=== PATIENT | male | born 2000 | race African-American/Black ===

== ENCOUNTER 2020-05-17 21:26 | Inpatient (IN) | payer OTHER, MEDICAID, SELFPAY ==
--- NOTE | 2020-05-17 | XR_ITS ---
EXAMINATION: XR CHEST CLINICAL INFORMATION: Shortness of breath COMPARISON: 03/15/2019 TECHNIQUE: Frontal view of the chest was obtained. FINDINGS: No significant abnormality is noted involving the heart, lungs, mediastinum, bony thorax or soft tissues. XR/XR chest 1V IMPRESSION: Unremarkable examination.
[2020-05-17 21:39] VITALS: BP 127/87; PULSE 135; RESP 24; TEMP 37.8; O2SAT 90; BMI 29.0
--- NOTE | 2020-05-17 21:54 | ED.URI ---
HPI - URI/Sore Throat General Chief Complaint: Upper Respiratory Symptoms Stated Complaint: ASTHMA Time Seen by Provider: 05/17/20 21:48 Source: patient Mode of arrival: ambulatory Limitations: no limitations History of Present Illness HPI Narrative: Patient comes emergency room complaining of an asthma exacerbation. Patient states that he has been having worsening shortness of breath for about a week. Patient states usually around winter he gets more asthma exacerbations. He has 2 inhalers at home, states they are not working. Patient denies any cough, no fever or chills. MD elicited complaint: other (Asthma exacerbation) Related Data Allergies Allergy/AdvReac Type Severity Reaction Status Date / Time No Known Allergies Allergy Verified 05/17/20 21:38 Review of Systems Review of Systems: Constitutional : No Weight loss, No Fever, No Chills, No Night Sweats, No Fatigue, No Malaise ENT/Mouth : No Hearing loss, No Ear Pain, No Nasal Congestion, No Sinus Pain, No Hoarseness, No sore throat, No Rhinorrhea, No Swallowing Difficulty Eyes: No Eye Pain, No Swelling, No Redness, No Foreign Body, No Discharge, No Vision Changes Cardiovascular : No Chest Pain, No SOB, No Dyspnea on Exertion, No Orthopnea, No Edema, No Palpitations Respiratory : No Cough, No Sputum, complaining of Wheezing, No Smoke Exposure, [id number] Dyspnea Gastrointestinal : No Nausea, No Vomiting, No Diarrhea, No Constipation, No abdominal Pain, No Hematochezia, No Melena Genitourinary : no irregular bleeding, No Dysuria, No Urinary Frequency, No Hematuria, No Urinary Incontinence, No Urgency, No Flank Pain, No Urinary Flow Changes, No Hesitancy Musculoskeletal : No joint pain, No Myalgias, No Joint Swelling Skin : No Skin Lesions, No rash Neuro : No Weakness, No Numbness, No Paresthesias, No Loss of Consciousness, No Dizziness, No Headache Psych : No Anxiety/Panic, No Depression, No SI/HI/AH/VH, No Social Issues, Heme/Lymph: No Bruising, No Bleeding,No Lymphadenopathy Endocrine : No Polyuria, No Polydipsia, No Temperature Intolerance PMFSH Past Medical History Medical History (Updated 05/18/20 @ 02:15 by Mag Tran MD) Asthma Social History Social History Advance Directives: No Advance Directives Information Provided: Yes Physical Exam Vital Signs: Vital Signs: Last Vital Signs Temp 100.1 F 05/17/20 22:00 Pulse 124 H 05/18/20 01:11 Resp 22 H 05/17/20 22:00 BP 132/88 05/17/20 22:00 Pulse Ox 93 05/17/20 22:00 Body Mass Index 29.0 Appearance: Alert. Oriented X3. No acute distress. Eyes: Pupils equal, round and reactive to light. ENT: Pharynx normal. Neck: Normal inspection. Neck supple. No lymph nodes noted. No crepitus CVS: Normal heart rate and rhythm. Pulses normal. Normal S1 and S2 Respiratory: No respiratory distress, bilateral expiratory wheezing , patient's oxygen saturation drops to 88% on room air Abdomen: Soft and nontender. No rigidity. No distention. good BS x4 Skin: Skin warm and dry. Normal skin color. Normal skin turgor. Extremities: No lower extremity edema. No lower extremity edema. No Lacerations. No Rash Neuro: Oriented X 3. No motor deficit. No sensory deficit. Moving all extermities. No slurred speech. Course Course Course Narrative: After 1 nebulization treatment, patient states that he feels much better, oxygen saturation 98%, however he is still wheezing, patient will receive a 2nd treatment now. After patient's 2nd treatment, patient continues to wheeze, oxygen saturation drops to 88% on room air, improved to 92 on 3 L. Patient being admitted for asthma exacerbation. MDM - URI/Sore Throat Imaging Data Chest x-ray: Radiologist's impression: TECHNIQUE: Frontal view of the chest was obtained. FINDINGS: No significant abnormality is noted involving the heart, lungs, mediastinum, bony thorax or soft tissues. XR/XR chest 1V IMPRESSION: Unremarkable examination. Discharge Plan Discharge Clinical Impression: Asthma Patient Disposition: Admitted As Inpatient
[2020-05-17 22:00] VITALS: BP 132/88; PULSE 112; RESP 22; TEMP 37.8; O2SAT 93
--- NOTE | 2020-05-17 22:00 | PC.NURSE ---
PT TO ED AMBULATORY WITH C/O DIFFICULTY BREATHING, PT CHG INTO GOWN AND MD AT BEDSIDE WITH PT. PT ALERT, SKIN W/D. PT AWAITING FOR RESPIRATORY FOR BREATHING TX.
[2020-05-17] MEDS: Albuterol Sulfate (0.083%) 2.5 MG/3 ML VIAL.NEB 10 MG INHALE (22:09)
[2020-05-17 22:12] VITALS: PULSE 128; O2SAT 94
[2020-05-17] MEDS: Magnesium Sulfate/H2O 2 GM/50 ML PIGGYBACK IV (22:40)
[2020-05-17] MEDS: methylPREDNISolone Sod Succ/PF 125 MG/2 ML VIAL IVPUSH (22:40)
--- NOTE | 2020-05-17 22:40 | PC.NURSE ---
PT MEDICATED PER EMAR. WILL CONTINUE TO MONITOR PT.
[2020-05-18] VITALS (12 sets, daily range): BP systolic 114–148; BP diastolic 61–88; PULSE 82–135; RESP 12–24; TEMP 36.4–37.2; O2SAT 2–97
[2020-05-18] MEDS: Albuterol Sulfate (0.083%) 2.5 MG/3 ML VIAL.NEB 5 MG INHALE (01:10)
--- NOTE | 2020-05-18 01:10 | PC.NURSE ---
RESPIRATORY IN ROOM FOR RESPIRATORY TX.
--- NOTE | 2020-05-18 02:00 | PC.NURSE ---
PT STATES IM FEELING A LITTLE BETTER . PT MEDICATED PER EMAR FOR MAGNESIUM ON A PUMP. PT ON MONITOR. PT DENIES ANY COMPLAINTS AT THIS TIME. WILL CONTINUE TO MONITOR PT.
[2020-05-18 02:17] LABS: Influenza A PCR NEGATIVE (Negative); Influenza B PCR NEGATIVE (Negative); Resp Syncy Virus RNA Qual PCR NEGATIVE (Negative); SARS COV2 PCR INHOUSE NEGATIVE (Negative)
--- NOTE | 2020-05-18 02:30 | PC.NURSE ---
PT TO ED, CHG INTO GOWN AND AWAITING MD'S EVAL.
--- NOTE | 2020-05-18 04:43 | PC.NURSE ---
PT RESTING IN STRETCHER W/O COMPLAINTS. PT AWAITING BED ASSIGNMENT. PT SLEEPING, WAKES TO VOICE. WILL CONTINUE TO MONITOR PT.
[2020-05-18] MEDS: Enoxaparin Sodium 40 MG/0.4 ML SYRINGE SUBCUT (05:01)
[2020-05-18 05:25] LABS: Basophils Absolute Auto 0.1 X10*3/uL (0.0-0.2); Basophils Percent Auto 0.4 % (0-2); Eosinophils Percent Auto 0.1 % (0-4); Hematocrit 47.4 % (42-52); Hemoglobin 15.8 g/dl (14.0-18.0); Imm Gran Abs Auto 0.06 X10*3/uL (0.00-0.03); Imm Gran Pct Auto 0.4 % (0.0-0.4); Lymphocytes Absolute Auto 0.9 X10*3/uL (1.2-4.9); Lymphocytes Percent Auto 6.4 % (20-40); Mean Corpuscular HGB Conc 33.3 g/dl (31.0-36.0); Mean Corpuscular Hemoglobin 30.3 pg (27.0-33.0); Mean Platelet Volume 10.8 fL (9.4-12.4); Monocytes Absolute Auto 0.2 X10*3/uL (0.1-1.2); Monocytes Percent Auto 1.2 % (2-11); Neutrophils Absolute Auto 12.7 X10*3/uL (2.0-8.3); Neutrophils Percent Auto 91.5 % (45-73); Platelet Count 242 X10*3/uL (160-400); Red Blood Count 5.21 X10*6/uL (4.60-5.80); SCAN SMEAR FLAG 1; White Blood Count 13.8 X10*3/uL (4.8-10.8)
[2020-05-18 05:26] LABS: MANUAL DIFF FLAG SCAN
[2020-05-18 05:39] LABS: D Dimer < 200 NG/ML
[2020-05-18 05:51] LABS: Anion Gap 16 (12-20); Blood Urea Nitrogen 13 mg/dL (9-16); Calcium 9.3 mg/dL (8.4-10.2); Carbon Dioxide 25 mmol/L (22-29); Chloride 104 mmol/L (96-108); Creatinine Clr Calc Pharmacy 143.7; Estimated Glomerular Filt Rate > 60; Glucose Random 142 mg/dL (60-115); Potassium 3.8 mmol/l (3.3-5.1); Sodium 141 mmol/L (135-145)
[2020-05-18 05:53] LABS: SLIDE REVIEW VERIFIED
--- NOTE | 2020-05-18 06:03 | P.HPHOSP_ITS ---
History of Present Illness Date of Service: 05/18/20 Chief Complaint: Shortness of breath and wheezing This is a 19-year-old male with past medical history of asthma who presents to the hospital complaining of wheezing x3 days, shortness of breath and difficulty catching his breath. Patient reports cough, runny nose that started around the same time, no sputum production. No fever or chills. Has not had any sick contacts, and no recent travel. has been having nausea and had 1 episode of vomiting few days ago, has no abdominal pain diarrhea constipation. No urinary symptoms, no headache or change in vision, no chest pain, no palpitations, no lower extremity edema. Despite receiving multiple rounds of breathing treatments, Solu-Medrol patient remains wheezing and short of breath therefore is being admitted for further management of asthma exacerbation On arrival to the ED vitals are significant for temp of a 100.1?, pulse rate of 135, respiratory rate of 24, blood pressure 127/87, satting 90% on room air Labs are significant for WBC count of 13.8, otherwise unremarkable Chest x-ray shows no evidence of pneumonia, D-dimer negative Past medical history: Asthma Past surgical history: Denies Family history: Denies Social history: Comes from home, denies tobacco alcohol or illicit drug Review of Systems Review of Systems: Yes all other systems are reviewed and are negative [facility] Medical History Asthma Social History Advance Directives: No Advance Directives Information Provided: Yes Meds Allergies Allergy/AdvReac Type Severity Reaction Status Date / Time No Known Allergies Allergy Verified 05/17/20 21:38 Home Medications Medication Instructions Recorded Confirmed Type albuterol sulfate [ProAir HFA] 2 puff PO Q4H PRN 05/18/20 05/18/20 History fluticasone propionate [Flovent 2 puff PO BID 05/18/20 05/18/20 History HFA] Physical Exam Vital Signs and Narrative: Vital Signs: Last Vital Signs Temp 100.1 F 05/17/20 22:00 Pulse 100 05/18/20 03:30 Resp 12 05/18/20 03:30 BP 137/67 05/18/20 03:30 Pulse Ox 96 05/18/20 03:30 Body Mass Index 29.0 Const: General: cooperative and no acute distress Orientation/consciousness: patient oriented x3 HENMT: Other: Rhinorrhea Eyes: General: appearance normal, both eyes and all related structures Resp: Other: Expiratory wheezing Effort & Inspection: normal respiratory effort and able to speak in complete sentences Cardio: Rate: regular rate Rhythm: regular rhythm GI: Palpation (GI): Soft to palpation Auscultation: normal bowel sounds Skin: General skin exam: no rashes or lesions noted Neuro: General: patient oriented x3 Cognition (Neuro): normal cognition Extrem: General: Yes normal to inspection and Yes no pedal edema Results Labs CBC and Chem 7: 05/18/20 05:20 05/18/20 05:20 Labs: Laboratory Results - last 24 hr 05/18/20 05/18/20 05/18/20 00:39 05:20 05:20 MCV 91.0 MCH 30.3 MCHC 33.3 RDW 13.0 Plt Count 242 MPV 10.8 Immature Gran % (Auto) 0.4 Neut % (Auto) 91.5 H Lymph % (Auto) 6.4 L Ransom % (Auto) 1.2 L Eos % (Auto) 0.1 Baso % (Auto) 0.4 Lymph # (Auto) 0.9 L Ransom # (Auto) 0.2 Eos # (Auto) 0.0 Baso # (Auto) 0.1 Abs Immat Gran (auto) 0.06 H Absolute Neuts (auto) 12.7 H Absolute Nucleated RBC 0.000 Nucleated RBC % (auto) 0.0 Smear Tech's Comments VERIFIED D-Dimer Anion Gap 16 Estim Creat Clear Calc 143.7 Estimated GFR > 60 Random Glucose 142 H Calcium 9.3 Coronavirus (PCR) NEGATIVE Influenza Type A (PCR) NEGATIVE Influenza Type B (PCR) NEGATIVE RSV RNA Qual (PCR) NEGATIVE 05/18/20 05:20 MCV MCH MCHC RDW Plt Count MPV Immature Gran % (Auto) Neut % (Auto) Lymph % (Auto) Ransom % (Auto) Eos % (Auto) Baso % (Auto) Lymph # (Auto) Ransom # (Auto) Eos # (Auto) Baso # (Auto) Abs Immat Gran (auto) Absolute Neuts (auto) Absolute Nucleated RBC Nucleated RBC % (auto) Smear Tech's Comments D-Dimer < 200 Anion Gap Estim Creat Clear Calc Estimated GFR Random Glucose Calcium Coronavirus (PCR) Influenza Type A (PCR) Influenza Type B (PCR) RSV RNA Qual (PCR) Imaging Radiologist's Impressions: Impressions Chest X-Ray 05/17/20 00:00 IMPRESSION: Unremarkable examination. Assessment and Plan (1) Asthma exacerbation: Qualifiers: Asthma severity: mild Asthma persistence: intermittent Qualified Code(s): J45.21 - Mild intermittent asthma with (acute) exacerbation Status: Acute (2) Leukocytosis: Status: Acute (3) Fever: Status: Acute (4) Tachypnea: Status: Acute (5) Tachycardia: Status: Acute 19-year-old male who presents to the hospital with asthma exacerbation # asthma exacerbation - possibly secondary to viral infection, COVID-19 negative, chest x-ray negative for any evidence of pneumonia Plan: - Solu-Medrol, DuoNeb q.i.d., p.r.n., - given his leukocytosis, tachypnea and tachycardia will start him on antibioti cs - will obtain complete respiratory viral panel # leukocytosis - has mild leukocytosis possibly secondary to viral infection - will start him on abx - will follow CBC # tachypnea and tachycardia - secondary to hypoxia and asthma exacerbation - cannot rule out bacterial infection although chest x-ray is negative for any pneumonia, - COVID-19 negative - D-dimer negative - will start him on levofloxacin and monitor his respiratory status DVT prophylaxis: Lovenox
[2020-05-18] MEDS: levoFLOXacin/D5W 750 MG/150 ML PIGGYBACK 100 MG IV (07:14)
[2020-05-18] MEDS: Albuterol/Iprat 2.5/0.5MG 3 ML AMPUL.NEB INHALE ×3 (07:52→15:32)
--- NOTE | 2020-05-18 11:44 | MHC.CM.PN ---
Met with patient in regards to discharge planning. Patient is Thai speaking but does speak and understand [place]ian. 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 Patient lives alone, ambulates independently and had no services prior to coming to the hospital. Additional services at discharge are not indicated at this time because patient is not homebound. PCP verified as Dr Oropeza at [facility]. Patient believes his mother has a copy of his HCP and will attempt to obtain a copy. Patient will transport himself when medically stable. Continue to monitor for d/c needs.
--- NOTE | 2020-05-18 12:20 | PM.EVENT ---
Event Note Date of Service: 05/18/20 Event Note: S Seen and examined in the ED reports feeling much better and hoping to go home O Vitals - last documented Gen - NAD CVS - S1S2 Lungs - improving air entry Abd - soft nt/nd A/P 19 yo M admitted for asthma exacerbation COVID 19 PCR negative, resp. pathogen panel pending IV steriods, updrafts wean o2 remainder per H&P from this AM admission
[2020-05-18 13:25] LABS: Adenovirus PCR Not Detected (Not Detect.); Bordetella parapertussis PCR Not Detected (Not Detect.); Bordetella pertussis PCR Not Detected (Not Detect.); Chlamydia pneumoniae PCR Not Detected (Not Detect.); Coronavirus 229E PCR Not Detected (Not Detect.); Coronavirus HKU1 PCR Not Detected (Not Detect.); Coronavirus NL63 PCR Not Detected (Not Detect.); Coronavirus OC43 PCR Not Detected (Not Detect.); Human metapneumovirus PCR Not Detected (Not Detect.); Influenza A PCR Not Detected (Not Detect.); Influenza B PCR Not Detected (Not Detect.); Mycoplasma pneumoniae PCR Not Detected (Not Detect.); Parainfluenza 1 PCR Not Detected (Not Detect.); Parainfluenza 2 PCR Not Detected (Not Detect.); Parainfluenza 3 PCR Not Detected (Not Detect.); Parainfluenza 4 PCR Not Detected (Not Detect.); RSV PCR Not Detected (Not Detect.); SARS-CoV-2 PCR Not Detected (Not Detect.)
[2020-05-18 14:28] LABS: Rhino/Enterovirus PCR Detected (Not Detect.)
[2020-05-18] MEDS: 0.9 % Sodium Chloride Flush 3 ML SYRINGE IVFLUSH (16:46)
[2020-05-19] VITALS (10 sets, daily range): BP systolic 125–147; BP diastolic 66–93; PULSE 82–115; RESP 18–19; TEMP 36.3–37.2; O2SAT 86–95
[2020-05-19] MEDS: Enoxaparin Sodium 40 MG/0.4 ML SYRINGE SUBCUT (03:33)
[2020-05-19] MEDS: 0.9 % Sodium Chloride Flush 3 ML SYRINGE IVFLUSH ×3 (03:33→14:45)
[2020-05-19 04:43] LABS: Basophils Percent Auto 0.1 % (0-2); Hematocrit 45.3 % (42-52); Hemoglobin 15.1 g/dl (14.0-18.0); Imm Gran Abs Auto 0.12 X10*3/uL (0.00-0.03); Imm Gran Pct Auto 0.6 % (0.0-0.4); Lymphocytes Percent Auto 9.5 % (20-40); MANUAL DIFF FLAG SCAN; Mean Corpuscular HGB Conc 33.3 g/dl (31.0-36.0); Mean Corpuscular Hemoglobin 30.3 pg (27.0-33.0); Mean Corpuscular Volume 90.8 fL (80-98); Mean Platelet Volume 11.3 fL (9.4-12.4); Monocytes Percent Auto 9.5 % (2-11); Neutrophils Absolute Auto 17.1 X10*3/uL (2.0-8.3); Neutrophils Percent Auto 80.3 % (45-73); Platelet Count 284 X10*3/uL (160-400); Red Blood Count 4.99 X10*6/uL (4.60-5.80); Red Cell Distribution Width 13.2 % (11.0-16.0); SCAN SMEAR FLAG 1; White Blood Count 21.3 X10*3/uL (4.8-10.8)
[2020-05-19 05:12] LABS: SLIDE REVIEW VERIFIED
[2020-05-19 05:14] LABS: Anion Gap 17 (12-20); Blood Urea Nitrogen 18 mg/dL (9-16); Calcium 9.2 mg/dL (8.4-10.2); Carbon Dioxide 25 mmol/L (22-29); Chloride 102 mmol/L (96-108); Creatinine Clr Calc Pharmacy 157.8; Estimated Glomerular Filt Rate > 60; Glucose Random 113 mg/dL (60-115); Potassium 4.7 mmol/l (3.3-5.1); Sodium 139 mmol/L (135-145)
[2020-05-19] MEDS: Albuterol/Iprat 2.5/0.5MG 3 ML AMPUL.NEB INHALE ×3 (07:41→15:39)
--- NOTE | 2020-05-19 08:46 | HO.PM.IMPN ---
Subjective Subjective Date of Service: 05/19/20 Interval History: seen and examined feeling better, breathing eaiser still coughing, but denies wheezing ROS General - no fevers or chills Cardiovascular - no chest pain Respiratory - shortness of breath imprved, denies wheezing Abdominal- no abdominal pain, nausea, vomiting, diarrhea Physical Exam Vital Signs: Vital Signs: Last Vital Signs Temp 97.8 F 05/19/20 07:05 Pulse 87 05/19/20 07:47 Resp 18 05/19/20 07:05 BP 131/78 05/19/20 07:05 Pulse Ox 93 05/19/20 07:05 Body Mass Index 29.0 Const: General: cooperative and no acute distress Orientation/consciousness: patient oriented x3 HENMT: Other: Rhinorrhea Eyes: General: appearance normal, both eyes and all related structures Resp: Other: diminished breath sounds, mild exp. scattered wheezing Effort & Inspection: normal respiratory effort and able to speak in complete sentences Cardio: Rate: regular rate Rhythm: regular rhythm GI: Palpation (GI): Soft to palpation Auscultation: normal bowel sounds Skin: General skin exam: no rashes or lesions noted Neuro: General: patient oriented x3 Cognition (Neuro): normal cognition Extrem: General: Yes normal to inspection and Yes no pedal edema Objective Data Current Medications Generic Name Dose Route Start Last Admin Trade Name Patricq PRN Reason Stop Dose Admin Acetaminophen 650 mg 05/18/20 03:30 Acetaminophen 325 Mg Tablet PO Q6H PRN Pain, Mild (Pain Scale 1-3) Albuterol/Ipratropium 3 ml 05/18/20 08:00 05/19/20 07:41 Albuterol/Iprat 2.5/0.5mg 3 Ml Ampul.Neb INHALE 3 ml RQ4H WHILE AWAKE GLORIA Administration Albuterol/Ipratropium 3 ml 05/18/20 03:30 Albuterol/Iprat 2.5/0.5mg 3 Ml Ampul.Neb INHALE RQ4H PRN Shortness of Breath/Wheezing Docusate Sodium 100 mg 05/18/20 03:30 Docusate Sodium 100 Mg Capsule PO DAILY PRN Constipation Enoxaparin Sodium 40 mg 05/18/20 03:30 05/19/20 03:33 Enoxaparin Sodium 40 Mg/0.4 Ml Syringe SUBCUT 40 mg Q24H GLORIA Administration Methylprednisolone Sodium Succinate 40 mg 05/18/20 03:30 05/19/20 03:33 Methylprednisolone Sod Succ/Pf 40 Mg/Ml Vial IVPUSH 40 mg Q12H GLORIA Administration Ondansetron HCl 4 mg 05/18/20 03:30 Ondansetron Hcl 4 Mg/2 Ml Vial IVPUSH Q8H PRN Nausea and Vomiting Sodium Chloride 3 ml 05/18/20 08:00 05/19/20 07:13 0.9 % Sodium Chloride Flush 3 Ml Syringe IVFLUSH 3 ml QSHIFT GLORIA Administration Labs CBC & Chem 7: 05/19/20 04:02 05/19/20 04:02 Assessment and Plan (1) Asthma exacerbation: Status: Acute (2) Respiratory failure with hypoxia: Status: Acute Assessment and Plan: 19-year-old male who presents to the hospital with asthma exacerbation 1. Asthma exacerbation secondary to Echo/Rhinovirus causing acute hypoxic respiratory failure desatted to 86 on RA this AM continue with supplemental o2 to keep sat 90-92 continue IV solu-medrol and scheduled updrafts RPP+ for echo/rhinovirus 2. leukocytosis increased due to steriods discontinue levaquin -- no evidence of bacterial infection Full Code DVT pptx, lovenox
--- NOTE | 2020-05-19 10:39 | MHC.CM.PN ---
PER INTERDISCIPLINARY ROUNDS PT NOT READY FOR D/C TODAY DUE TO AFTER OXYGEN DROPPED TO 86% AFTER O2 REMOVED. ANTICIPATED D/C 05/20/20 HOME SELF-CARE, PT'S CAR IN PARKING LOT AND WILL TRANSPORT HIMSELF.
[2020-05-20] VITALS (13 sets, daily range): BP systolic 107–144; BP diastolic 59–75; PULSE 70–95; RESP 16–20; TEMP 36.3–36.7; O2SAT 86–100
--- NOTE | 2020-05-20 | XR_ITS ---
EXAMINATION: XR CHEST CLINICAL INFORMATION: Asthma not improving. COMPARISON: May 17, 2020 TECHNIQUE: 2 views of the chest were obtained. FINDINGS: No significant abnormality is noted involving the heart, lungs, mediastinum, bony thorax or soft tissues. XR/XR chest 2V IMPRESSION: No acute disease.
[2020-05-20] MEDS: 0.9 % Sodium Chloride Flush 3 ML SYRINGE IVFLUSH ×3 (03:24→15:02)
[2020-05-20] MEDS: Albuterol/Iprat 2.5/0.5MG 3 ML AMPUL.NEB INHALE ×4 (07:16→21:19)
--- NOTE | 2020-05-20 08:18 | HO.PM.IMPN ---
Subjective Subjective Date of Service: 05/20/20 Interval History: seen and examined continue to feel better despite persistant hypoxia on RA reports coughing, non-productive and minimal denies any pleuritic type chest pain denies smoking -- tobacco or otherwise ROS General - no fevers or chills Cardiovascular - no chest pain Respiratory - shortness of breath improved, denies wheezing Abdominal- no abdominal pain, nausea, vomiting, diarrhea Physical Exam Vital Signs: Vital Signs: Last Vital Signs Temp 97.6 F 05/20/20 07:12 Pulse 87 05/20/20 07:17 Resp 19 05/20/20 07:12 BP 141/69 H 05/20/20 07:12 Pulse Ox 86 L 05/20/20 08:16 Body Mass Index 29.0 Const: General: cooperative and no acute distress Orientation/consciousness: patient oriented x3 HENMT: Other: Rhinorrhea Eyes: General: appearance normal, both eyes and all related structures Resp: Other: diminished breath sounds, mild exp. scattered wheezing desaturating to mid 80s on the RA Effort & Inspection: normal respiratory effort and able to speak in complete sentences Cardio: Rate: regular rate Rhythm: regular rhythm GI: Palpation (GI): Soft to palpation Auscultation: normal bowel sounds Skin: General skin exam: no rashes or lesions noted Neuro: General: patient oriented x3 Cognition (Neuro): normal cognition Extrem: General: Yes normal to inspection and Yes no pedal edema Objective Data Current Medications Generic Name Dose Route Start Last Admin Trade Name Freq PRN Reason Stop Dose Admin Acetaminophen 650 mg 05/18/20 03:30 Acetaminophen 325 Mg Tablet PO Q6H PRN Pain, Mild (Pain Scale 1-3) Albuterol/Ipratropium 3 ml 05/18/20 08:00 05/20/20 07:16 Albuterol/Iprat 2.5/0.5mg 3 Ml Ampul.Neb INHALE 3 ml RQ4H WHILE AWAKE GLORIA Administration Albuterol/Ipratropium 3 ml 05/18/20 03:30 Albuterol/Iprat 2.5/0.5mg 3 Ml Ampul.Neb INHALE RQ4H PRN Shortness of Breath/Wheezing Docusate Sodium 100 mg 05/18/20 03:30 Docusate Sodium 100 Mg Capsule PO DAILY PRN Constipation Enoxaparin Sodium 40 mg 05/18/20 03:30 05/20/20 03:26 Enoxaparin Sodium 40 Mg/0.4 Ml Syringe SUBCUT Not Given Q24H GLORIA Methylprednisolone Sodium Succinate 40 mg 05/18/20 03:30 05/20/20 03:24 Methylprednisolone Sod Succ/Pf 40 Mg/Ml Vial IVPUSH 40 mg Q12H GLORIA Administration Ondansetron HCl 4 mg 05/18/20 03:30 Ondansetron Hcl 4 Mg/2 Ml Vial IVPUSH Q8H PRN Nausea and Vomiting Sodium Chloride 3 ml 05/18/20 08:00 05/20/20 06:55 0.9 % Sodium Chloride Flush 3 Ml Syringe IVFLUSH 3 ml QSHIFT GLORIA Administration Labs CBC & Chem 7: 05/19/20 04:02 05/19/20 04:02 Assessment and Plan (1) Asthma exacerbation: Status: Acute (2) Respiratory failure with hypoxia: Status: Acute Assessment and Plan: 19-year-old male who presents to the hospital with asthma exacerbation 1. Asthma exacerbation secondary to Echo/Rhinovirus causing acute hypoxic respiratory failure continue to require o2 -- desaturating to 86 on RA even at rest continue with supplemental o2 to keep sat 90-92 ,mcontinue IV solu-medrol and scheduled updrafts RPP+ for echo/rhinovirus 2. leukocytosis recheck cbc today repeat cxr hold off antibiotics, remains afebrile Full Code DVT pptx, lovenox
[2020-05-20 09:27] LABS: Hematocrit 51.6 % (42-52); Hemoglobin 17.2 g/dl (14.0-18.0); Mean Corpuscular HGB Conc 33.3 g/dl (31.0-36.0); Mean Corpuscular Hemoglobin 30.3 pg (27.0-33.0); Mean Corpuscular Volume 90.8 fL (80-98); Mean Platelet Volume 10.9 fL (9.4-12.4); Platelet Count 313 X10*3/uL (160-400); Red Blood Count 5.68 X10*6/uL (4.60-5.80); Red Cell Distribution Width 13.2 % (11.0-16.0); White Blood Count 17.8 X10*3/uL (4.8-10.8)
[2020-05-21] MEDS: 0.9 % Sodium Chloride Flush 3 ML SYRINGE IVFLUSH (03:25)
[2020-05-21 03:27] VITALS: BP 122/65; PULSE 70; RESP 18; TEMP 36.1; O2SAT 95
[2020-05-21 07:10] VITALS: BP 138/82; PULSE 94; RESP 21; TEMP 36.7; O2SAT 91
[2020-05-21] MEDS: Albuterol/Iprat 2.5/0.5MG 3 ML AMPUL.NEB INHALE (08:36)
[2020-05-21 08:38] VITALS: PULSE 95; O2SAT 98
--- NOTE | 2020-05-21 08:43 | PM.DS ---
DS: Providers Provider Date of Service: 05/21/20 Date of admission: 05/18/20 03:30 Primary care physician: Unknown Physician DS: Diagnosis Discharge Diagnosis (1) Asthma: Status: Acute DS: Medications Discharge Medications Home Medications: Home Medications Medication Instructions Recorded Confirmed albuterol sulfate [ProAir HFA] 2 puff PO Q4H PRN 05/18/20 05/18/20 fluticasone propionate [Flovent 2 puff PO BID 05/18/20 05/18/20 HFA] DS: Summary Hospital Course Hospital Course: Patient presented with shortness of breath and wheezing and was admitted for asthma exacerbation. He was ruled out COVID-19 and was subsequently tested for a respiratory pathogen panel which resulted positive for echo/rhino virus. He was noted to be hypoxic dropping into the upper 80s on room air and was started on supplemental oxygen. Over the course of 3 nights in the hospital, he was able to be slowly weaned from his O2 with saturations greater than 90 at the time of discharge. He had no dyspnea on exertion and his tachycardia resolved. He will be discharged home to complete 5 more days of oral prednisone. He is to continue his maintenance inhalers as prior and to use his albuterol rescue inhaler as needed. He will be set up with a home nebulizer machine. Time Spent with Patient Time attestation: Total time spent providing and/or coordinating discharge services: Discharge coordination time: Greater than 30 minutes Physical Exam Vital Signs: Vital Signs: Last Vital Signs Temp 98.0 F 05/21/20 07:10 Pulse 95 05/21/20 08:38 Resp 21 H 05/21/20 07:10 BP 138/82 05/21/20 07:10 Pulse Ox 91 L 05/21/20 07:10 Body Mass Index 29.0 Const: General: cooperative and no acute distress Orientation/consciousness: patient oriented x3 HENMT: Other: Rhinorrhea Eyes: General: appearance normal, both eyes and all related structures Resp: Other: Air entry improved without any wheezing. Hypoxia resolved, saturations in the 90+ range Effort & Inspection: normal respiratory effort and able to speak in complete sentences Cardio: Rate: regular rate Rhythm: regular rhythm GI: Palpation (GI): Soft to palpation Auscultation: normal bowel sounds Skin: General skin exam: no rashes or lesions noted Neuro: General: patient oriented x3 Cognition (Neuro): normal cognition Extrem: General: Yes normal to inspection and Yes no pedal edema DS: Data Data Completed and Pending Labs on day of discharge: Laboratory Tests 05/18/20 05/18/20 05/18/20 00:39 00:39 05:20 WBC 13.8 H RBC 5.21 Hgb 15.8 Hct 47.4 MCV 91.0 MCH 30.3 MCHC 33.3 RDW 13.0 Plt Count 242 MPV 10.8 Immature Gran % (Auto) 0.4 Neut % (Auto) 91.5 H Lymph % (Auto) 6.[address] % (Auto) 1.2 L Eos % (Auto) 0.1 Baso % (Auto) 0.4 Lymph # (Auto) 0.[address] [place] # (Auto) 0.2 Eos # (Auto) 0.0 Baso # (Auto) 0.1 Abs Immat Gran (auto) 0.06 H Absolute Neuts (auto) 12.7 H Absolute Nucleated RBC 0.000 Nucleated RBC % (auto) 0.0 Smear Tech's Comments VERIFIED D-Dimer Sodium Potassium Chloride Carbon Dioxide Anion Gap BUN Creatinine Estim Creat Clear Calc Estimated GFR Random Glucose Calcium Respiratory Panel Hernandez See Note Adenovirus (Rapid PCR) Not Detected B.pert (TEM-PCR) Not Detected B.parapertussis DNA PCR Not Detected C. pneumoniae DNA (PCR) Not Detected Coronavirus (PCR) NEGATIVE Coronavirus OC43 (PCR) Not Detected Coronavirus HKU1 (PCR) Not Detected Coronavirus 229E (PCR) Not Detected Coronavirus NL63 (PCR) Not Detected Human Metapneumovir PCR Not Detected Influenza A (RT-PCR) Not Detected Influenza Type A (PCR) NEGATIVE Influenza B (RT-PCR) Not Detected Influenza Type B (PCR) NEGATIVE M. pneumoniae (PCR) Not Detected Parainfluenza 1 (PCR) Not Detected Parainfluenza 2 (PCR) Not Detected Parainfluenza 3 (PCR) Not Detected Parainfluenza 4 (PCR) Not Detected RSV (PCR) Not Detected RSV RNA Qual (PCR) NEGATIVE Entero/Rhino (PCR) Detected A SARS-CoV-2 RNA (RT-PCR) Not Detected 05/18/20 05/18/20 05/19/20 05:20 05:20 04:02 WBC 21.3 H RBC 4.99 Hgb 15.1 Hct 45.3 MCV 90.8 MCH 30.3 MCHC 33.3 RDW 13.2 Plt Count 284 MPV 11.3 Immature Gran % (Auto) 0.6 H Neut % (Auto) 80.3 H Lymph % (Auto) 9.[address] [place] % (Auto) 9.5 Eos % (Auto) 0.0 Baso % (Auto) 0.1 Lymph # (Auto) 2.0 [place] # (Auto) 2.0 H Eos # (Auto) 0.0 Baso # (Auto) 0.0 Abs Immat Gran (auto) 0.12 H Absolute Neuts (auto) 17.1 H Absolute Nucleated RBC 0.000 Nucleated RBC % (auto) 0.0 Smear Tech's Comments VERIFIED D-Dimer < 200 Sodium 141 Potassium 3.8 Chloride 104 Carbon Dioxide 25 Anion Gap 16 BUN 13 Creatinine 1.01 Estim Creat Clear Calc 143.7 Estimated GFR > 60 Random Glucose 142 H Calcium 9.3 Respiratory Panel Hernanedz Adenovirus (Rapid PCR) B.pert (TEM-PCR) B.parapertussis DNA PCR C. pneumoniae DNA (PCR) Coronavirus (PCR) Coronavirus OC43 (PCR) Coronavirus HKU1 (PCR) Coronavirus 229E (PCR) Coronavirus NL63 (PCR) Human Metapneumovir PCR Influenza A (RT-PCR) Influenza Type A (PCR) Influenza B (RT-PCR) Influenza Type B (PCR) M. pneumoniae (PCR) Parainfluenza 1 (PCR) Parainfluenza 2 (PCR) Parainfluenza 3 (PCR) Parainfluenza 4 (PCR) RSV (PCR) RSV RNA Qual (PCR) Entero/Rhino (PCR) SARS-CoV-2 RNA (RT-PCR) 05/19/20 05/20/20 04:02 09:08 WBC 17.8 H RBC 5.68 Hgb 17.2 Hct 51.6 MCV 90.8 MCH 30.3 MCHC 33.3 RDW 13.2 Plt Count 313 MPV 10.9 Immature Gran % (Auto) Neut % (Auto) Lymph % (Auto) [place] % (Auto) Eos % (Auto) Baso % (Auto) Lymph # (Auto) [place] # (Auto) Eos # (Auto) Baso # (Auto) Abs Immat Gran (auto) Absolute Neuts (auto) Absolute Nucleated RBC 0.000 Nucleated RBC % (auto) 0.0 Smear Tech's Comments D-Dimer Sodium 139 Potassium 4.7 D Chloride 102 Carbon Dioxide 25 Anion Gap 17 BUN 18 H Creatinine 0.92 Estim Creat Clear Calc 157.8 Estimated GFR > 60 Random Glucose 113 Calcium 9.2 Respiratory Panel Hernandez Adenovirus (Rapid PCR) B.pert (TEM-PCR) B.parapertussis DNA PCR C. pneumoniae DNA (PCR) Coronavirus (PCR) Coronavirus OC43 (PCR) Coronavirus HKU1 (PCR) Coronavirus 229E (PCR) Coronavirus NL63 (PCR) Human Metapneumovir PCR Influenza A (RT-PCR) Influenza Type A (PCR) Influenza B (RT-PCR) Influenza Type B (PCR) M. pneumoniae (PCR) Parainfluenza 1 (PCR) Parainfluenza 2 (PCR) Parainfluenza 3 (PCR) Parainfluenza 4 (PCR) RSV (PCR) RSV RNA Qual (PCR) Entero/Rhino (PCR) SARS-CoV-2 RNA (RT-PCR) Discharge Plan Discharge Patient Disposition: Home, Self-Care Referrals: Johnna / [facility],MD Marcio [Physician] - Discharge Medications: New prednisone 50 mg tablet 50 mg PO DAILY Qty: 5 RF: 0 albuterol sulfate 2.5 mg /3 mL (0.083 %) solution for nebulization 2.5 mg inhalation QID PRN (Reason: shortness of breath or wheezing) Qty: 180 RF: 0 Continued Flovent HFA 220 mcg/actuation HFA aerosol inhaler 2 puff PO BID RF: 0 albuterol sulfate [ProAir HFA] 90 mcg/actuation HFA aerosol inhaler 2 puff PO Q4H PRN (Reason: asthma) RF: 0 Discharge Orders: Discharge Order (Routine); Ordered 05/21/20 Ordered By: Elpidio Avendano Diet: advance to usual diet Activity on Discharge: As tolerated Stand Alone Forms: Work/School Release Visit Report Forms: Patient Portal Discharge page Care Plan Goals: To stay healthy and out of the hospital. Health Concerns: Asthma Exacerbation Plan of Treatment: This was due to common cold. Your covid test is negative. Take prednisone 50mg daily 5 days. Take your inhalers.
--- NOTE | 2020-05-21 10:35 | MHC.CM.PN ---
PT DISCHARGING TODAY, HOME SELF-CARE, FAMILY TO TRANSPORT.
== END 2020-05-21 12:30 | disposition home or self-care (01) | DRG 202 ==
LOC: HO.ED 05-18 02:15 → HO.EDOVER 05-18 09:00 → HO.S3 05-18 20:50
PROVIDERS: Admitting Provider Internal Medicine; Emergency Provider Emergency Medicine; PCP Family Medicine; Visit Provider Family Medicine
DX: J45.21 Mild intermittent asthma with (acute) exacerbation (principal); J96.01 Acute respiratory failure with hypoxia; D72.829 Elevated white blood cell count, unspecified; R06.82 Tachypnea, not elsewhere classified; B97.89 Other viral agents as the cause of diseases classified elsewhere; Z20.828 Contact with and (suspected) exposure to other viral communicable diseases; Z79.51 Long term (current) use of inhaled steroids; Z79.899 Other long term (current) drug therapy
CPT/HCPCS: 0241U; 11104; 36415; 71045; 71046; 80048; 85025; 85027; 85379; 87633; 94640; 94644; 96365; 96366; 96375; 99285; J1650; J1956; J2920; J2930; J3475

== ENCOUNTER 2021-10-08 17:20 | Emergency (ER) | payer OTHER, MEDICAID, SELFPAY ==
--- NOTE | ~2021-10-08 | XR_ITS ---
EXAMINATION: XR HAND, RIGHT CLINICAL INFORMATION: Pain and swelling COMPARISON: None TECHNIQUE: PA, lateral, and oblique views of the right hand. FINDINGS: 1. Slightly impacted and pulmonary angulated fifth metacarpal neck fracture with overlying soft tissue swelling. No other fracture or dislocation. Joint spaces throughout the hand and wrist are maintained. XR/XR hand RT 2V IMPRESSION: Mildly impacted and volarly angulated fifth metacarpal neck fracture with overlying soft tissue swelling
[2021-10-08 17:28] VITALS: BP 133/90; PULSE 118; RESP 20; TEMP 37.2; O2SAT 97; BMI 36.4
--- NOTE | 2021-10-08 19:21 | ED_ITS ---
HPI - Extremity Problem General Chief complaint: Extremity Problem Stated complaint: hand INJ Time Seen by Provider: 10/08/21 18:41 Source: patient Mode of arrival: ambulatory Limitations: no limitations History of Present Illness HPI Narrative: 20-year-old male came in for evaluation of right hand pain. A right-handed 20 years old male who got angry and upset today and punched the wall complaining of right hand swelling,deformity and pain. Patient declined SI/HI or hallucination. Related Data Home Medications Medication Instructions Recorded Confirmed albuterol sulfate 90 mcg/actuation 2 puff PO Q4H PRN 05/18/20 05/18/20 aerosol inhaler (ProAir HFA) fluticasone propionate 220 2 puff PO BID 05/18/20 05/18/20 mcg/actuation HFA aerosol inhaler (Flovent HFA) Previous Rx's Medication Instructions Recorded prednisone 50 mg tablet 50 mg PO DAILY #5 tab 05/19/20 albuterol sulfate 2.5 mg (3 mL) INHALATION QID PRN 05/21/20 #180 ml Allergies Allergy/AdvReac Type Severity Reaction Status Date / Time No Known Allergies Allergy Verified 05/17/20 21:38 Review of Systems Review of Systems: All other systems are reviewed and are negative Constitutional: Reports as per HPI and Reports no additional constitutional complaints Eyes: Reports as per HPI and Reports no additional eye complaints Reports system reviewed and no additional complaints, except as documented Cardiovascular: Reports as per HPI and Reports no additional cardiovascular complaints Respiratory: Reports as per HPI and Reports no additional respiratory complaints Gastrointestinal: Reports as per HPI and Reports no additional gastrointestinal complaints Genitourinary: Reports no additional female genitourinary complaints Musculoskeletal: Reports no additional musculoskeletal complaints Skin/Breast: Reports system reviewed and no additional complaints, except as docu Psychiatric: Reports no additional psychiatric complaints Endocrine: Reports no additional endocrine complaints Hematologic/Lymphatic: Reports no additional hematologic/lymphatic complaints Allergic/Immunologic: Reports no additional allergic/immunologic complaints Reports system reviewed and no additional complaints, except as documented and Reports Abnormal speech present [facility] Past Medical History Medical History Asthma Fever Leukocytosis Social History Social History Household Members: Family Housing: Apartment Do you presently have visiting nurse or other home services: No Alcohol intake: never Advance Directives: No Advance Directives Information Provided: No service: No Current occupational status: unemployed Physical Exam Vital Signs: Vital Signs: Last Vital Signs Temp 98.9 F 10/08/21 17:28 Pulse 118 H 10/08/21 17:28 Resp 20 10/08/21 17:28 BP 133/90 H 10/08/21 17:28 Pulse Ox 97 10/08/21 17:28 BMI result Body Mass Index 36.4 Vital signs have been reviewed as appeared to be correct. Blood pressure normal. Heart rate elevated Respiration rate normal. Temperature normal. Oxygen saturation normal. Appearance: Alert. Oriented X3. No acute distress. Head: Normal external exam. Normocephalic. Atraumatic. No Hodge signs noted. No raccoon eyes noted Eyes: PERRLA. EOMI. Conjunctiva and sclera normal. Eyelids normal. ENT: TM's Normal. Pharynx normal. Uvula midline. Moist mucous membranes. No trismus noted. No drooling noted. No muffled voice noted. Neck: Normal inspection. Neck supple. FROM. No adenopathy. Thyroid Normal. No meningeal signs. No neck mass noted. CVS: Normal heart rate and rhythm. Heart sound normal. No murmurs noted. Pulses normal throughout. Respiratory: No respiratory distress. Painless inspiration. Breath sounds normal. No wheezes/rales/rhonchi noted. Chest nontender. No accessory muscle usage noted or decreased air movement noted. Abdomen: Soft and nontender. Bowel sounds normal in all 4 quadrants. No distention noted. No organomegaly noted. No visible injury noted. Back: No CVA tenderness. Full range of motion noted. Skin: Skin warm and dry. Normal skin color. Normal skin turgor. No rashes/lesions/lacerations noted. Extremities: Right hand exam: Swelling tenderness over right 5th metatarsal bone, normal cap refill. Neuro: Oriented X 3. Cranial nerve exam: II-XII are grossly intact No motor deficit. No sensory deficit. Reflexes normal. Course Course Course Narrative: Assessment and plan. Right-handed 20-year-old male with right 5th metatarsal bone fracture with angulation. Able to flex right PIP and DIP without deformity. Will ice/splint/NSAIDs/follow-up with ortho. MDM - Extremity (Nontraumatic) Imaging Data right hand xrays: Attestation: I personally reviewed and interpreted this imaging study as follows: Radiologist's impression: Mildly impacted and angulated 5th metacarpal neck fracture with overlying soft tissue swelling. Discharge Plan Discharge Clinical Impression: Fracture of fifth metacarpal bone of right hand Patient Disposition: Home, Self-Care Instructions: Boxer Fracture (ED) Prescriptions: No Action Flovent HFA 220 mcg/actuation HFA aerosol inhaler 2 puff PO BID 0RF albuterol sulfate [ProAir HFA] 90 mcg/actuation HFA aerosol inhaler 2 puff PO Q4H PRN (Reason: asthma) 0RF prednisone 50 mg tablet 50 mg PO DAILY Qty: 5 0RF albuterol sulfate 2.5 mg /3 mL (0.083 %) solution for nebulization 2.5 mg inhalation QID PRN (Reason: shortness of breath or wheezing) Qty: 180 0RF Referrals: Marcio Oropeza MD [Primary Care Provider] - Jerry Thakur MD [Physician] - Stand Alone Forms: Work/School Release
== END 2021-10-08 20:58 | disposition home or self-care (01) ==
PROVIDERS: Emergency Provider Emergency Medicine; PCP Family Medicine
DX: S62.306A Unspecified fracture of fifth metacarpal bone, right hand, initial encounter for closed fracture (principal); S92.351A Displaced fracture of fifth metatarsal bone, right foot, initial encounter for closed fracture; Y29.XXXA Contact with blunt object, undetermined intent, initial encounter; Y93.9 Activity, unspecified; Y92.9 Unspecified place or not applicable; Y99.9 Unspecified external cause status
CPT/HCPCS: 29130; 73120; 99283

== ENCOUNTER 2021-10-12 10:14 | Outpatient (REF) | payer OTHER, SELFPAY ==
--- NOTE | ~2021-10-12 | XR_ITS ---
EXAMINATION: XR HAND, RIGHT CLINICAL INFORMATION: Pain COMPARISON: Previous x-ray 10/08/2021 TECHNIQUE: Three views of the right hand. FINDINGS: There is a boxer type fracture of the distal fifth metacarpal bone. This appears unchanged. No other fracture is seen. Joint spaces are normal. Soft tissues are normal. XR/XR hand RT min 3V IMPRESSION: Boxer's fracture of the fifth metacarpal bone unchanged from previous exam.
== END 2021-10-12 10:15 | disposition home or self-care (01) ==
LOC: HO.HOSX 10:14
PROVIDERS: Visit Provider Orthopaedic Surgery
DX: M79.641 Pain in right hand (principal)
CPT/HCPCS: 73130

== ENCOUNTER 2021-11-08 09:34 | Outpatient (REF) | payer OTHER, SELFPAY ==
--- NOTE | ~2021-11-08 | XR_ITS ---
EXAMINATION: XR HAND, RIGHT CLINICAL INFORMATION: Fracture COMPARISON: Previous x-rays from earlier this month TECHNIQUE: PA, lateral, and oblique views of the right hand. FINDINGS: There is a fracture of the distal shaft of the right fifth metacarpal bone. Alignment appears unchanged. There is increasing bony callus formation suggestive of healing. No other fracture is seen. Joint spaces are normal. Soft tissues are normal. XR/XR hand RT min 3V IMPRESSION: Healing fracture of the right fifth metacarpal bone.
== END 2021-11-08 09:35 | disposition home or self-care (01) ==
LOC: HO.HOSX 09:34
PROVIDERS: Visit Provider Orthopaedic Surgery
DX: M79.641 Pain in right hand (principal)
CPT/HCPCS: 73130

== ENCOUNTER 2022-04-07 08:35 | Emergency (ER) | payer OTHER, SELFPAY ==
--- NOTE | ~2022-04-07 | XR_ITS ---
EXAMINATION: XR CHEST CLINICAL INFORMATION: Asthma exacerbation for 2 days. COMPARISON: 05/20/2020 chest radiographs. TECHNIQUE: Frontal view of the chest was obtained. FINDINGS: No significant abnormality is noted involving the heart, lungs, mediastinum, bony thorax or soft tissues. XR/XR chest 1V IMPRESSION: No acute cardiopulmonary process.
[2022-04-07 08:41] VITALS: BP 121/52; PULSE 120; RESP 18; TEMP 36.6; O2SAT 95; BMI 32.5
--- NOTE | 2022-04-07 09:30 | ED_ITS ---
HPI - Asthma General Chief Complaint: Asthma Stated Complaint: Diff Breathing Time Seen by Provider: 04/07/22 09:18 Source: patient Mode of arrival: ambulatory Limitations: no limitations History of Present Illness HPI Narrative: Patient is a 21 year old male with a PMHx of asthma who presents today with difficulty breathing and nasal congestion ongoing for 2 days now. Patient states that he feels warm and wakes up at night to cough more than usual since onset of symptoms. Cough is usually productive with clear sputum. Patient also reports dyspnea on exertion and chest tightness when coughing. He reports having two episodes of nausea and vomiting at work but denies abdominal pain, diarrhea. Patient denies any sick contacts and states that he has never been intubated for his asthma before but has been hospitalized a few times. Patient denies any other complaints at this time. MD complaint: shortness of breath Onset (ago): day(s) (2 days) Severity: moderate Context: none known Associated symptoms: productive cough Related Data Current Asthma Therapy: inhaled bronchodilator Home Medications Medication Instructions Recorded Confirmed albuterol sulfate 90 mcg/actuation 2 puff PO Q4H PRN asthma 05/18/20 05/18/20 aerosol inhaler (ProAir HFA) fluticasone propionate 220 2 puff PO BID 05/18/20 05/18/20 mcg/actuation HFA aerosol inhaler (Flovent HFA) Previous Rx's Medication Instructions Recorded prednisone 50 mg tablet 50 mg PO DAILY #5 tabs 05/19/20 albuterol sulfate 2.5 mg/3 mL 2.5 mg (3 mL) inhalation QID PRN 05/21/20 (0.083 %) solution for nebulization shortness of breath or wheezing #180 mL albuterol sulfate 90 mcg/actuation 1 inh inhalation QID PRN shortness 04/07/22 aerosol inhaler of breath or wheezing #8.5 grams codeine 10 mg-guaifenesin 100 mg/5 5 ml PO Q6H PRN cold symptoms #120 04/07/22 mL oral liquid (Guaifenesin AC) mL oseltamivir 75 mg capsule (Tamiflu) 75 mg PO BID 5 days #10 caps 04/07/22 prednisone 20 mg tablet 40 mg PO DAILY asthma 5 days #10 04/07/22 tabs Allergies Allergy/AdvReac Type Severity Reaction Status Date / Time No Known Allergies Allergy Verified 11/08/21 13:47 Review of Systems Review of Systems: Constitutional : denies med noncompliance, no history of PE or DVT, denies recent travel, No Fever, No Chills ENT/Mouth : No Hoarseness, No sore throat, + Rhinorrhea, + Nasal congestion, No Sinus Pressure, No Ear Pain, No stridor, Eyes: No Redness, No Discharge, No Vision Changes Cardiovascular : No Chest Pain, + SOB, + Dyspnea on Exertion, No Edema, no pleurisy, Respiratory : + Productive cough with clear sputum, No wheezing, no stridor, no hemoptysis, Gastrointestinal : + Nausea, + Vomiting, No Diarrhea, No abdominal Pain Genitourinary : No Dysuria, No Hematuria Musculoskeletal : No joint pain/swelling, No Myalgias Extremities: no extremity swelling /pain Skin : No rash, no itching, no swelling Neuro : No Weakness, No Numbness, No Headache, No Dizziness, No Paresthesias Psych : No anxiety, depression Heme/Lymph: No Bruising, No Bleeding Endocrine : No Polyuria, No Polydipsia Yes all other systems are reviewed and are negative [facility] Past Medical History Attestation statement: The following information was validated with the patient. 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 Appearance: Alert. Oriented X3. No acute distress. Head: Normal external exam. Normocephalic. Atraumatic. Eyes: PERRLA. EOMI. Conjunctiva and sclera normal. Eyelids normal. ENT: EAC normal. TM's Normal. Pharynx normal. Uvula midline. Moist mucous membranes. No trismus noted. No drooling noted. No muffled voice noted. No stridor noted. Patient tolerating secretions well. Neck: Normal inspection. Neck supple. FROM. No adenopathy. Thyroid Normal. No meningeal signs. No neck mass noted. CVS: + Tachychardic with normal rhythm. Heart sound normal. Pulses normal throughout. No murmurs/rales/gallops. Respiratory: No respiratory distress. Painless inspiration. Breath sounds normal. No wheezes/rales/rhonchi noted. Chest nontender. No accessory muscle usage noted or decreased air movement noted. Normal chest excursions noted. Abdomen: Soft and nontender. Bowel sounds normal in all 4 quadrants. No distention noted. No organomegaly noted. No visible injury noted. Back: Full range of motion noted. No rashes/lesion/induration/fluctuance or signs of infection noted. Skin: Skin warm and dry. Normal skin color. Normal skin turgor. No rashes/lesions/lacerations noted. Extremities: No lower extremity edema. Extremities exhibit normal range of motion. Extremities nontender. Neuro: Oriented X 3. No motor deficit. No sensory deficit. Vascular: No cyanosis noted to upper extremity nails and lower extremity toes nails. Const: General: cooperative, no acute distress, alert and awake Orientation/consciousness: patient oriented x3 Limitations: no limitations Neuro: General: patient oriented x3 Course Course Course Narrative: Patient is a 21 year old male with a PMH of asthma who presented to the ED today with complains of difficulty breathing on exertion on going for two days now. Patient also reports associated symptoms of nasal congestion, chest tightness, nausea and vomiting. Patient reports no sick contacts and states compliance and adherence to his asthma medications. On exam, patient was in no acute respiratory distress, alert and oriented. Patient O2 sat was 95% on room air, he was tachycardic but had regular rhythm. His lungs were clear to auscultation bilaterally and there was no marked use of accessory muscles. Patient nasal swab came back positive for Influenza A. Plan: Tamiflu 75 mg PO BID for 5 days Prednisone 40mg once daily for 5 days Codeine-guaifenesin 5ml PO q6h and PRN. Discharged with: Tamiflu 75 mg PO BID for 5 days Prednisone 40mg once daily for 5 days Codeine-guaifenesin 5ml PO q6h and PRN. MDM - Asthma Medical Records Attestation: I reviewed the patient's medical records. Lab Data Attestation: I reviewed the patient's lab results. Labs: Lab Results 04/07/22 Range/Units 08:52 Influenza Type A (PCR) POSITIVE A (Negative) Influenza Type B (PCR) NEGATIVE (Negative) RSV RNA Qual (PCR) NEGATIVE (Negative) SARS-CoV-2 RNA (RT-PCR) NEGATIVE (Negative) Imaging Data Chest x-ray: Attestation: I personally reviewed and interpreted this imaging study as follows: Radiologist's impression: FINDINGS: No significant abnormality is noted involving the heart, lungs, mediastinum, bony thorax or soft tissues. XR/XR chest 1V IMPRESSION: No acute cardiopulmonary process. Discharge Plan Discharge Clinical Impression: Asthma with acute exacerbation, Influenza A Patient Disposition: Home, Self-Care Instructions: Asthma (ED), Influenza (ED) Additional Instructions: your pcp as needed Prescriptions: New prednisone 20 mg tablet 40 mg PO DAILY 5 Days Qty: 10 0RF codeine-guaifenesin [Guaifenesin AC] 10-100 mg/5 mL liquid 5 ml PO Q6H PRN (Reason: cold symptoms) Qty: 120 0RF albuterol sulfate 90 mcg/actuation HFA aerosol inhaler 1 inh inhalation QID PRN (Reason: shortness of breath or wheezing) Qty: 8.5 0RF oseltamivir [Tamiflu] 75 mg capsule 75 mg PO BID 5 Days Qty: 10 0RF No Action Flovent HFA 220 mcg/actuation HFA aerosol inhaler 2 puff PO BID albuterol sulfate [ProAir HFA] 90 mcg/actuation HFA aerosol inhaler 2 puff PO Q4H PRN (Reason: asthma) prednisone 50 mg tablet 50 mg PO DAILY Qty: 5 0RF albuterol sulfate 2.5 mg /3 mL (0.083 %) solution for nebulization 2.5 mg inhalation QID PRN (Reason: shortness of breath or wheezing) Qty: 180 0RF Stand Alone Forms: Work/School Release Interventions: ED Discharge Assessment Last Done: 04/07/22 09:59 Discharge Date/Time: 04/07/22 09:59
[2022-04-07 09:35] LABS: Influenza A PCR POSITIVE (Negative); Influenza B PCR NEGATIVE (Negative); Resp Syncy Virus RNA Qual PCR NEGATIVE (Negative); SARS COV2 PCR INHOUSE NEGATIVE (Negative)
== END 2022-04-07 09:59 | disposition home or self-care (01) ==
PROVIDERS: Emergency Provider Student in an Organized Health Care Education/Training Program; PCP Family Medicine
DX: J10.1 Influenza due to other identified influenza virus with other respiratory manifestations (principal); J45.901 Unspecified asthma with (acute) exacerbation; R06.02 Shortness of breath; R05.9 Cough, unspecified; Z20.822 Contact with and (suspected) exposure to COVID-19; Z79.899 Other long term (current) drug therapy
CPT/HCPCS: 0241U; 71045; 99282; 99283

== ENCOUNTER 2022-04-30 15:24 | Emergency (ER) | payer OTHER, SELFPAY ==
[2022-04-30 15:35] VITALS: BP 117/69; PULSE 121; RESP 20; TEMP 37.4; O2SAT 97; BMI 31.7
--- NOTE | 2022-04-30 16:25 | ED.GENADULT ---
HPI - General Adult General Chief complaint: General Medical Stated complaint: Covid test Time Seen by Provider: 04/30/22 16:25 Source: patient Mode of arrival: ambulatory Limitations: no limitations History of Present Illness HPI narrative: 21-year-old male presents with upper respiratory symptoms, body aches, sore throat, and headache. Did test positive for the flu 2 weeks ago, and he feels similar. He does not report chest pain or pressure, palpitations, vomiting, diarrhea, or weakness. Onset (ago): week(s) Severity: moderate Severity scale (1-10): 5 Quality: aching Pain Consistency: constant Relieving factors: none Exacerbating factors: movement Associated symptoms: cough, fever/chills, headaches and malaise Treatments prior to arrival: none Related Data Home Medications Medication Instructions Recorded Confirmed albuterol sulfate 90 mcg/actuation 2 puff PO Q4H PRN asthma 05/18/20 05/18/20 aerosol inhaler (ProAir HFA) fluticasone propionate 220 2 puff PO BID 05/18/20 05/18/20 mcg/actuation HFA aerosol inhaler (Flovent HFA) Previous Rx's Medication Instructions Recorded prednisone 50 mg tablet 50 mg PO DAILY #5 tabs 05/19/20 albuterol sulfate 2.5 mg/3 mL 2.5 mg (3 mL) inhalation QID PRN 05/21/20 (0.083 %) solution for nebulization shortness of breath or wheezing #180 mL albuterol sulfate 90 mcg/actuation 1 inh inhalation QID PRN shortness 04/07/22 aerosol inhaler of breath or wheezing #8.5 grams codeine 10 mg-guaifenesin 100 mg/5 5 ml PO Q6H PRN cold symptoms #120 04/07/22 mL oral liquid (Guaifenesin AC) mL oseltamivir 75 mg capsule (Tamiflu) 75 mg PO BID 5 days #10 caps 04/07/22 prednisone 20 mg tablet 40 mg PO DAILY asthma 5 days #10 04/07/22 tabs Allergies Allergy/AdvReac Type Severity Reaction Status Date / Time No Known Allergies Allergy Verified 11/08/21 13:47 Review of Systems Review of Systems: Constitutional: positive Fever, positive Chills, positive fatigue, positive Malaise ENT/Mouth: positive sore throat, positive runny nose Eyes: No Discharge Cardiovascular: No Chest Pain, No SOB Respiratory: Positive Cough, No Sputum, No Wheezing, No Dyspnea Gastrointestinal: No Nausea, No Vomiting, No Diarrhea Musculoskeletal: positive Myalgia Skin: No rash Neuro: Positive Headache Yes all other systems are reviewed and are negative [facility] [place] Past Medical History Attestation statement: The following information was validated with the patient. 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 Oriented X3. No acute distress. Eyes: Pupils equal, round and reactive to light. ENT: Pharynx normal. Neck: Normal inspection. Neck supple. CVS: Normal heart rate and rhythm. Pulses normal. Respiratory: No respiratory distress. Lung sounds clear to auscultation all lobes. Abdomen: Soft and nontender. Skin: Skin warm and dry. Normal skin color. Normal skin turgor. Extremities: Gait well balanced well coordinated Neuro: No motor deficit. No sensory deficit. Cranial nerves 2 through 12 intact. Course Course Course Narrative: 21-year-old male presents with upper respiratory symptoms, body aches, sore throat and headache. Was tested positive for 2 weeks, symptoms subsided but never resolved. Over the past 2 days he said the worsened. He so tired that he is having hard time staying awake throughout the day. Physical exam is unremarkable. Order for COVID influenza RSV. I will give some Tylenol as patient's temperature is 99.3 degrees with an elevated heart rate of 121. Patient is nontoxic, I do not suspect sepsis at this time I feel that his symptoms are viral. If patient feels the same, I did discuss options, patient would like to be discharged home and I will call him with his COVID testing results. 16:30 patient verbalized understanding of and agrees to plan of care to discharge home. Patient verbalized understanding of signs and symptoms indicating need for emergent intervention. 17:30 patient COVID positive. I did call and update him on his status Medications Administered Discontinued Medications Generic Name Dose Route Start Last Admin Trade Name Freq PRN Reason Stop Dose Admin Acetaminophen 650 mg 04/30/22 16:25 04/30/22 16:37 Acetaminophen 325 Mg Tablet PO 04/30/22 16:26 650 mg ONCE ONE Administration Medical Decision Making Differential Diagnosis Differential Diagnoses: The differential diagnosis associated with the presentation includes Influenza RSV COVID Lab Data MDM Lab Attestation statement: I reviewed the patient's lab results. Labs: Lab Results 04/30/22 Range/Units 16:39 Influenza Type A (PCR) NEGATIVE (Negative) Influenza Type B (PCR) NEGATIVE (Negative) RSV RNA Qual (PCR) NEGATIVE (Negative) SARS-CoV-2 RNA (RT-PCR) POSITIVE A (Negative) External Record Review External record reviewed: Inpatient record Discharge Plan Discharge Clinical Impression: Acute viral syndrome Patient Disposition: Home, Self-Care Instructions: Viral Syndrome (ED) Additional Instructions: You were evaluated for upper respiratory symptoms. Your COVID influenza test are pending. You must follow-up with primary care or urgent care in the next 2 weeks. Alternate Tylenol 650 mg every 6 hours and Motrin 600 mg every 6 hours as needed for pain and fever management. You were given Tylenol approximately 16:30. Consider taking Motrin at 736 you can have pain management and fever control every 3 hours. Write down what time you take these medications to prevent accidental overdose. Use albuterol inhaler as needed. Drink plenty of fluids. Thank you for choosing this emergency department for evaluation. Please follow-up with primary care physician as needed. Return to the emergency department for any new, concerning, or worsening symptoms. Prescriptions: No Action Flovent HFA 220 mcg/actuation HFA aerosol inhaler 2 puff PO BID albuterol sulfate [ProAir HFA] 90 mcg/actuation HFA aerosol inhaler 2 puff PO Q4H PRN (Reason: asthma) prednisone 50 mg tablet 50 mg PO DAILY Qty: 5 0RF albuterol sulfate 2.5 mg /3 mL (0.083 %) solution for nebulization 2.5 mg inhalation QID PRN (Reason: shortness of breath or wheezing) Qty: 180 0RF prednisone 20 mg tablet 40 mg PO DAILY 5 Days Qty: 10 0RF codeine-guaifenesin [Guaifenesin AC] 10-100 mg/5 mL liquid 5 ml PO Q6H PRN (Reason: cold symptoms) Qty: 120 0RF albuterol sulfate 90 mcg/actuation HFA aerosol inhaler 1 inh inhalation QID PRN (Reason: shortness of breath or wheezing) Qty: 8.5 0RF oseltamivir [Tamiflu] 75 mg capsule 75 mg PO BID 5 Days Qty: 10 0RF Stand Alone Forms: Work/School Release Interventions: ED Discharge Assessment Last Done: 04/30/22 16:52 Discharge Date/Time: 04/30/22 16:56
--- NOTE | 2022-04-30 16:40 | PC.NURSE ---
pt medicated for low grade fever
[2022-04-30 17:29] LABS: Influenza A PCR NEGATIVE (Negative); Influenza B PCR NEGATIVE (Negative); Resp Syncy Virus RNA Qual PCR NEGATIVE (Negative); SARS COV2 PCR INHOUSE POSITIVE (Negative)
== END 2022-04-30 16:56 | disposition home or self-care (01) ==
PROVIDERS: Emergency Provider Student in an Organized Health Care Education/Training Program
DX: B34.9 Viral infection, unspecified (principal); R50.9 Fever, unspecified; R51.9 Headache, unspecified; R05.9 Cough, unspecified; Z20.822 Contact with and (suspected) exposure to COVID-19
CPT/HCPCS: 0241U; 99283

== ENCOUNTER 2023-04-02 06:09 | Emergency (ER) | payer OTHER, MEDICAID, SELFPAY ==
--- NOTE | ~2023-04-02 | XR_ITS ---
EXAMINATION: XR CHEST CLINICAL INFORMATION: Asthma COMPARISON: 04/07/2022 TECHNIQUE: Frontal view of the chest was obtained. FINDINGS: The lungs are clear with no focal consolidation. No evidence of pneumothorax, pulmonary edema, or pleural effusions. The cardiomediastinal silhouette is unremarkable. No acute osseous findings. XR/XR chest 1V IMPRESSION: No acute cardiopulmonary findings.
[2023-04-02 06:13] VITALS: BP 130/80; PULSE 84; RESP 20; TEMP 36.6; O2SAT 92; BMI 35.6
--- NOTE | 2023-04-02 06:39 | ED.ASTHMA ---
HPI - Asthma General Chief Complaint: Asthma Stated Complaint: asthma, sob Time Seen by Provider: 04/02/23 06:37 Source: patient and family (patient's mother and girlfriend) Mode of arrival: ambulatory Limitations: no limitations History of Present Illness HPI Narrative: Patient is a 22 year old assigned male at with a history of asthma presenting to the emergency department today with a cough and shortness of breath. Patient states that over the last week he has had a cough and shortness of breath that is worse at night. Patient states that he has been using his nebulizer and inhaler which have helped some but not caused relief. Patient denies any dizziness, lightheadedness, abdominal pain, nausea, vomiting, fever, chills, blurry vision, double vision, loss of vision, chest pain, back pain, night sweats, pain with urination, increased urinary frequency, increased urinary urgency, blood in his urine or stool, syncope or a near syncopal episode, recent trauma or falls, bowel incontinence, bladder incontinence, bowel retention, bladder retention, or any other complaints at this time. MD complaint: shortness of breath and wheezing Onset (ago): week(s) (1) Severity: mild Context: recent URI Associated symptoms: dry cough Treatments Prior to Arrival: inhaled bronchodilator Related Data Current Asthma Therapy: inhaled bronchodilator Home Medications Medication Instructions Recorded Confirmed albuterol sulfate 90 mcg/actuation 2 puff PO Q4H PRN asthma 05/18/20 05/18/20 aerosol inhaler (ProAir HFA) fluticasone propionate 220 2 puff PO BID 05/18/20 05/18/20 mcg/actuation HFA aerosol inhaler (Flovent HFA) Previous Rx's Medication Instructions Recorded prednisone 50 mg tablet 50 mg PO DAILY #5 tabs 05/19/20 albuterol sulfate 2.5 mg/3 mL 2.5 mg (3 mL) inhalation QID PRN 05/21/20 (0.083 %) solution for nebulization shortness of breath or wheezing #180 mL albuterol sulfate 90 mcg/actuation 1 inh inhalation QID PRN shortness 04/07/22 aerosol inhaler of breath or wheezing #8.5 grams codeine 10 mg-guaifenesin 100 mg/5 5 ml PO Q6H PRN cold symptoms #120 04/07/22 mL oral liquid (Guaifenesin AC) mL oseltamivir 75 mg capsule (Tamiflu) 75 mg PO BID 5 days #10 caps 04/07/22 prednisone 20 mg tablet 40 mg (2 x 20 mg) PO DAILY asthma 04/07/22 5 days #10 tabs albuterol sulfate 1.25 mg/3 mL 1.25 mg (3 mL) inhalation QID PRN 04/02/23 solution for nebulization shortness of breath or wheezing #90 mL albuterol sulfate 90 mcg/actuation 1 inh inhalation QID PRN shortness 04/02/23 aerosol inhaler of breath or wheezing #8.5 grams prednisone 20 mg tablet 20 mg PO DAILY 7 days #7 tabs 04/02/23 Allergies Allergy/AdvReac Type Severity Reaction Status Date / Time No Known Allergies Allergy Verified 04/02/23 06:20 Review of Systems Constitutional: Constitutional: Reports no additional constitutional complaints, Denies chills, Denies fever(s) and Denies night sweats Eyes: Eyes: Reports no additional eye complaints, Denies blurry vision, Denies change in vision, Denies diplopia, Denies eye discharge, Denies loss of vision and Denies eye pain ENT: Denies dizziness Cardiovascular: Cardiovascular: Reports no additional cardiovascular complaints, Denies chest pain, Denies lightheadedness, Denies Loss of Consciousness and Reports dyspnea Respiratory: Respiratory: Reports no additional respiratory complaints, Reports cough, Reports dyspnea and Reports wheezing Gastrointestinal: Gastrointestinal: Reports no additional gastrointestinal complaints, Denies abdominal pain, Denies melena, Denies hematochezia, Denies change in bowel habits and Denies change in stool character Genitourinary: Genitourinary: Reports no additional male genitourinary complaints, Denies hematuria, Denies oliguria, Denies difficulty urinating, Denies dysuria, Denies urinary frequency, Denies urinary hesitancy, Denies urinary incontinence and Denies urinary urgency Musculoskeletal: Musculoskeletal: Reports no additional musculoskeletal complaints, Denies numbness and Denies tingling Neurologic: Denies dizziness, Denies loss of vision, Denies numbness and Denies tingling Psychiatric: Psychiatric: Reports no additional psychiatric complaints Endocrine: Endocrine: Reports no additional endocrine complaints Hematologic/Lymphatic: Hematologic/Lymphatic: Reports no additional hematologic/lymphatic complaints Allergic/Immunologic: Allergic/Immunologic: Reports no additional allergic/immunologic complaints and Reports wheezing PMFSH Past Medical History Attestation statement: The following information was validated with the patient. (all information validated with the patient's mother and girlfriend) Source: old records reviewed, obtained from family (patient's mother and girlfriend provided additional history and confirmed the history provided by the patient.) and nursing notes reviewed Medical History Fever Leukocytosis Asthma Social History Household Members: Family Housing: Apartment Do you presently have visiting nurse or other home services: No Alcohol intake: never Smoked in Last 30 Days: No Use of substances other than those prescribed or required for medical reasons: No Advance Directives: No service: No Current occupational status: unemployed 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 Physical Exam Vital Signs: Vital Signs: Last Vital Signs Temp 97.9 F 04/02/23 06:13 Pulse 87 04/02/23 07:35 Resp 20 04/02/23 07:35 BP 128/70 04/02/23 07:35 Pulse Ox 95 04/02/23 07:35 O2 Del Method Room Air 04/02/23 07:35 BMI result Body Mass Index 35.6 Const: General: cooperative, no acute distress, alert and awake Nutritional Appearance: well nourished Orientation/consciousness: patient oriented x3 Limitations: no limitations HEENT: Head: Yes normal to inspection and Yes atraumatic Ears: hearing grossly normal bilaterally and external ears normal General nose exam: Normal external nose present, no nasal discharge noted and no epistaxis Face and sinus: Yes normal facial exam, No abrasion and No laceration Mouth: Normal oral and palatal mucosa present, no drooling and no muffled voice Eyes: General: appearance normal, both eyes and all related structures Periorbital: periorbital findings normal Eyelids: Yes eyelids normal Conjunctivae: conjunctivae normal Pupils: Equal, round and reactive pupils present EOM: EOMs intact bilaterally Neck: Neck: Yes normal visual inspection, Yes full ROM and Yes no lymphadenopathy Chest: Chest palpation & inspection: normal inspection of the chest Resp: Effort & Inspection: normal respiratory effort and able to speak in complete sentences Auscultation: wheezes expiratory wheezes, inspiratory wheezes, scattered wheezes and throughout Cardio: Rate: tachycardic Rhythm: regular rhythm GI: Inspection: Yes normal to inspection Neuro: General: patient oriented x3 and moves all extremities Cranial nerves: Yes Equal, round and reactive pupils present Cognition (Neuro): normal cognition Motor exam (neuro): 5/5 motor strength present throughout Sensory Exam: Normal double simultaneous stimulation for sensation Coordination: [id number] test normal Extrem: General: Yes normal to inspection, Yes full ROM and Yes capillary refill normal Psych: Appearance: grossly normal Mental Status: mental status grossly normal Affect: normal affect Attitude: cooperative Thought process: Normal thought process present Thought content: Normal thought content present Insight: Good insight present (Psych) Medications Administered Generic Name Dose Route Start Last Admin Trade Name Freq PRN Reason Stop Dose Admin Magnesium Sulfate 2 gm in 50 mls @ 25 mls/hr 04/02/23 07:13 04/02/23 07:36 Magnesium Sulfate/H2o IV 04/02/23 09:12 25 mls/hr ONCE ONE Administration Discontinued Medications Generic Name Dose Route Start Last Admin Trade Name Freq PRN Reason Stop Dose Admin Albuterol Sulfate 2.5 mg/ 5 mg 04/02/23 06:47 04/02/23 06:49 Albuterol Sulfate 2.5 mg INHALE 04/02/23 06:48 5 mg ONCE ONE Administration Albuterol Sulfate 5 mg/ 7.5 mg 04/02/23 07:21 04/02/23 07:24 Albuterol Sulfate 2.5 mg INHALE 04/02/23 07:22 7.5 mg ONCE ONE Administration Methylprednisolone Sodium Succinate 60 mg 04/02/23 07:13 04/02/23 07:36 Methylprednisolone Sod Succ 125 Mg/2 Ml Vial IVPUSH 04/02/23 07:14 60 mg ONCE ONE Administration Medical Decision Making Medical Decision Making [facility] Narrative: Patient is a 22 year old assigned male at with a history of asthma presenting to the emergency department today with a cough and shortness of breath. Patient's physical exam was as noted in the physical exam portion of this note. Patient's blood work was unremarkable. Patient's chest x-ray showed no acute process. I explained my physical exam findings as well as all test results to the patient, the patient's girlfriend, and the patient's mother. I answered all questions asked by the patient, the patient's girlfriend, and the patient's mother. Patient received 2 breathing treatments, IV solu-medrol, and IV magnesium which he stated helped his symptoms significantly. I stressed the importance of the patient taking his medication as prescribed. I stressed the importance of the patient following up with his primary care provider. I stressed the importance of the patient returning to the emergency department immediately if his symptoms were to worsen or if he were to develop any dizziness, shortness of breath, difficulty breathing, chest pain, blurry vision, loss of vision, nausea, vomiting, abdominal pain, fever, chills, back pain, or any other complaints. Patient, the patient's girlfriend, and the patient's mother verbalized agreement and understanding with this treatment plan and discharge. Differential Diagnosis Differential Diagnoses: The differential diagnosis associated with the presentation includes Asthma exacerbation Asthma attack Wheezing URI Admission/Observation Consideration of admission/observation: Escalation of care including admission/observation considered Patient would have been admitted to the hospital had his work up had any findings where hospital admission was appropriate and his clinical presentation warranted hospital admission. Lab Data MDM Lab Attestation statement: I reviewed the patient's lab results. My interpretation of these studies and their corresponding values is that they are grossly normal. 04/02/23 07:33 04/02/23 07:33 Labs: Lab Results 04/02/23 04/02/23 Range/Units 06:26 07:33 WBC 8.8 (4.8-10.8) X10*3/uL RBC 4.97 (4.60-5.80) X10*6/uL Hgb 15.1 (14.0-18.0) g/dl Hct 44.4 (42.0-52.0) % MCV 89.3 (80.0-98.0) fL MCH 30.4 (27.0-33.0) pg MCHC 34.0 (31.0-36.0) g/dl RDW 13.6 (11.0-16.0) % Plt Count 247 (160-400) X10*3/uL MPV 10.6 (9.4-12.4) fL Immature Gran % (Auto) 0.2 (0.0-0.4) % Neut % (Auto) 46.0 (45-73) % Lymph % (Auto) 28.1 (20-40) % [place] % (Auto) 10.1 (2-11) % Eos % (Auto) 14.4 H (0-4) % Baso % (Auto) 1.2 (0-2) % Lymph # (Auto) 2.5 (1.2-4.9) X10*3/uL [place] # (Auto) 0.9 (0.1-1.2) X10*3/uL Eos # (Auto) 1.3 H (0.0-0.4) X10*3/uL Baso # (Auto) 0.1 (0.0-0.2) X10*3/uL Abs Immat Gran (auto) 0.02 (0.00-0.03) X10*3/uL Absolute Neuts (auto) 4.1 (2.0-8.3) x10*3/uL Absolute Nucleated RBC 0.000 (0.0-0.012) X10*3/uL Nucleated RBC % (auto) 0.0 (0.0-0.2) /100WBC Sodium 139 (135-145) mmol/L Potassium 3.5 (3.3-5.1) mmol/L Chloride 105 (96-108) mmol/L Carbon Dioxide 26 (22-29) mmol/L Anion Gap 12 (12-20) BUN 14 (9-16) mg/dL Creatinine 0.93 (0.5-1.4) mg/dL Estim Creat Clear Calc 167.9 Estimated GFR > 60 Random Glucose 102 (60-115) mg/dL Calcium 9.3 (8.4-10.2) mg/dL Total Bilirubin 1.4 H (0.0-1.0) mg/dL AST 31 (5-37) U/L ALT 28 (0-40) U/L Alkaline Phosphatase 90 (39-117) U/L C-Reactive Protein 0.73 H (< or = 0.50) mg/dL Total Protein 7.3 (6.5-8.0) g/dL Albumin 4.1 (3.5-5.0) g/dL Influenza Type A (PCR) NEGATIVE (Negative) Influenza Type B (PCR) NEGATIVE (Negative) RSV RNA Qual (PCR) NEGATIVE (Negative) SARS-CoV-2 RNA (RT-PCR) NEGATIVE (Negative) Independent Interpretation I performed an independent interpretation of an: Plain X-Ray Interpretation: My interpretation is in agreement with the radiologist's impression of this imaging study. EXAMINATION: XR CHEST CLINICAL INFORMATION: Asthma COMPARISON: 04/07/2022 TECHNIQUE: Frontal view of the chest was obtained. FINDINGS: The lungs are clear with no focal consolidation. No evidence of pneumothorax, pulmonary edema, or pleural effusions. The cardiomediastinal silhouette is unremarkable. No acute osseous findings. XR/XR chest 1V IMPRESSION: No acute cardiopulmonary findings. Dictated By: Truman Dan MD Signed By: Electronically signed by Truman Dan MD 04/02/23 0704 Radiology Impression Discussion of test interpretation with radiology: I have reviewed the radiologist's reading. Independent Historian Clinical information obtained from an independent historian. History obtained from or confirmed by: Parent (patient's mother provided additional history and confirmed the history provided by the patient) and Other (patient's girlfriend provided additional history and confirmed the history provided by the patient) Discharge Plan Discharge Clinical Impression: Asthma Patient Disposition: Home, Self-Care Instructions: Asthma (DC) Additional Instructions: Follow up with your primary care provider. Return to the emergency department immediately if your symptoms worsen or if you develop any dizziness, shortness of breath, difficulty breathing, chest pain, blurry vision, loss of vision, nausea, vomiting, abdominal pain, fever, chills, back pain, or any other complaints. Prescriptions: New albuterol sulfate 90 mcg/actuation HFA aerosol inhaler 1 inh inhalation QID PRN (Reason: shortness of breath or wheezing) Qty: 8.5 0RF albuterol sulfate 1.25 mg/3 mL solution for nebulization 1.25 mg inhalation QID PRN (Reason: shortness of breath or wheezing) Qty: 90 0RF prednisone 20 mg tablet 20 mg PO DAILY 7 Days Qty: 7 0RF No Action Flovent HFA 220 mcg/actuation HFA aerosol inhaler 2 puff PO BID albuterol sulfate [ProAir HFA] 90 mcg/actuation HFA aerosol inhaler 2 puff PO Q4H PRN (Reason: asthma) prednisone 50 mg tablet 50 mg PO DAILY Qty: 5 0RF albuterol sulfate 2.5 mg /3 mL (0.083 %) solution for nebulization 2.5 mg inhalation QID PRN (Reason: shortness of breath or wheezing) Qty: 180 0RF prednisone 20 mg tablet 40 mg PO DAILY 5 Days Qty: 10 0RF codeine-guaifenesin [Guaifenesin AC] 10-100 mg/5 mL liquid 5 ml PO Q6H PRN (Reason: cold symptoms) Qty: 120 0RF albuterol sulfate 90 mcg/actuation HFA aerosol inhaler 1 inh inhalation QID PRN (Reason: shortness of breath or wheezing) Qty: 8.5 0RF oseltamivir [Tamiflu] 75 mg capsule 75 mg PO BID 5 Days Qty: 10 0RF Referrals: Darya Saunders TR[employer]MOBI[employer] OPERATOR [Primary Care Provider] - Print Language: Lebanese
--- NOTE | 2023-04-02 06:43 | PC.NURSE ---
Pt ambulated independently with steady gait. Pt A&Ox4, reports worsening SOB x 3 days with no relief of home neb tx. Pt reports sick contact at work and hx of asthma. Pt voice muffled, speaking in full sentences, SpO2 94% on RA. Lung sounds wheezy. RT at bedside given breathing tx.
[2023-04-02] MEDS: Albuterol Sulfate 2.5 MG, Albuterol Sulfate (0.083%) 2.5 MG 5 MG INHALE (06:49)
[2023-04-02 06:50] VITALS: PULSE 84; RESP 18; O2SAT 96
[2023-04-02 07:08] LABS: Influenza A PCR NEGATIVE (Negative); Influenza B PCR NEGATIVE (Negative); Resp Syncy Virus RNA Qual PCR NEGATIVE (Negative); SARS COV2 PCR INHOUSE NEGATIVE (Negative)
[2023-04-02 07:24] VITALS: PULSE 93; RESP 18; O2SAT 94
[2023-04-02] MEDS: Albuterol Sulfate 5 MG, Albuterol Sulfate (0.083%) 2.5 MG 7.5 MG INHALE (07:24)
[2023-04-02 07:35] VITALS: BP 128/70; PULSE 87; RESP 20; O2SAT 95
--- NOTE | 2023-04-02 07:35 | PC.NURSE ---
pt is alert and oriented, skin appropriate for ethnicity, respirations even and unlabored, ls wheezing and tight throughout out, pt is also congested, normal sinus on the monitor and vs stable
[2023-04-02 07:36] LABS: MANUAL DIFF FLAG NO
[2023-04-02] MEDS: methylPREDNISolone Sod Succ 125 MG/2 ML VIAL 60 MG IVPUSH (07:36)
[2023-04-02] MEDS: Magnesium Sulfate/H2O 2 GM/50 ML PIGGYBACK IV (07:36)
[2023-04-02 07:40] LABS: Basophils Absolute Auto 0.1 X10*3/uL (0.0-0.2); Basophils Percent Auto 1.2 % (0-2); Eosinophils Absolute Auto 1.3 X10*3/uL (0.0-0.4); Eosinophils Percent Auto 14.4 % (0-4); Hematocrit 44.4 % (42.0-52.0); Hemoglobin 15.1 g/dl (14.0-18.0); Imm Gran Abs Auto 0.02 X10*3/uL (0.00-0.03); Imm Gran Pct Auto 0.2 % (0.0-0.4); Lymphocytes Absolute Auto 2.5 X10*3/uL (1.2-4.9); Lymphocytes Percent Auto 28.1 % (20-40); Mean Corpuscular Hemoglobin 30.4 pg (27.0-33.0); Mean Corpuscular Volume 89.3 fL (80.0-98.0); Mean Platelet Volume 10.6 fL (9.4-12.4); Monocytes Absolute Auto 0.9 X10*3/uL (0.1-1.2); Monocytes Percent Auto 10.1 % (2-11); Neutrophils Absolute Auto 4.1 x10*3/uL (2.0-8.3); Platelet Count 247 X10*3/uL (160-400); Red Blood Count 4.97 X10*6/uL (4.60-5.80); Red Cell Distribution Width 13.6 % (11.0-16.0); White Blood Count 8.8 X10*3/uL (4.8-10.8)
[2023-04-02 07:53] LABS: Alanine Aminotransferase 28 U/L (0-40); Albumin Level 4.1 g/dL (3.5-5.0); Alkaline Phosphatase 90 U/L (39-117); Anion Gap 12 (12-20); Aspartate Amino Transferase 31 U/L (5-37); Bilirubin Total 1.4 mg/dL (0.0-1.0); Blood Urea Nitrogen 14 mg/dL (9-16); C Reactive Protein 0.73 mg/dL (< or = 0.50); Calcium 9.3 mg/dL (8.4-10.2); Carbon Dioxide 26 mmol/L (22-29); Chloride 105 mmol/L (96-108); Creatinine Clr Calc Pharmacy 167.9; Estimated Glomerular Filt Rate > 60; Glucose Random 102 mg/dL (60-115); Potassium 3.5 mmol/L (3.3-5.1); Sodium 139 mmol/L (135-145); Total Protein 7.3 g/dL (6.5-8.0)
[2023-04-02 08:21] LABS: Erythrocyte Sedimentation Rate 9 MM/HR (0-15)
--- NOTE | 2023-04-02 08:45 | PC.NURSE ---
pt reports feeling better, ls improved
== END 2023-04-02 08:46 | disposition home or self-care (01) ==
PROVIDERS: Physician Assistant Medical; Emergency Provider Emergency Medicine; PCP Nurse Practitioner Primary Care
DX: J45.909 Unspecified asthma, uncomplicated (principal); Z20.822 Contact with and (suspected) exposure to COVID-19; Z20.828 Contact with and (suspected) exposure to other viral communicable diseases; R06.02 Shortness of breath; Z79.899 Other long term (current) drug therapy
CPT/HCPCS: 0241U; 36415; 71045; 80053; 85025; 85652; 86140; 94640; 96374; 96375; 99284; 99285; J2930; J3475

== ENCOUNTER 2023-08-06 10:42 | Outpatient (REF) | payer OTHER, MEDICAID, SELFPAY ==
[2023-08-06 11:36] LABS: Estimated Average Glucose 103 mg/dL; Hemoglobin A1c % 5.2 % (<6.0)
[2023-08-06 11:59] LABS: Alanine Aminotransferase 31 U/L (0-40); Albumin Level 4.2 g/dL (3.5-5.0); Alkaline Phosphatase 104 U/L (39-117); Aspartate Amino Transferase 21 U/L (5-37); Bilirubin Direct 0.4 mg/dL (0.0-0.5); Bilirubin Total 1.5 mg/dL (0.0-1.0); Cholesterol 182 mg/dL (<200); HDL Cholesterol 32 mg/dL (>40); LDL Cholesterol Calculated 136 mg/dL (<100); Total Protein 7.6 g/dL (6.5-8.0); Triglycerides 71 mg/dL (<150)
[2023-08-06 12:21] LABS: HIV AB/AG Nonreactive (Nonreactive); HIV Num 1 0.05 S/CO (0.00-0.99); ~HepC Num1 0.16 S/CO (0.00-0.79); ~Hepatitis C Antibody Nonreactive (Nonreactive)
[2023-08-07 10:23] LABS: RPR Rapid Plasma Reagin NON-REACTIVE (NON-REACTIVE)
== END 2023-08-06 10:43 | disposition home or self-care (01) ==
LOC: HO.HHCL 10:42
PROVIDERS: Visit Provider Nurse Practitioner Primary Care
DX: Z11.4 Encounter for screening for human immunodeficiency virus [HIV] (principal); R74.01 Elevation of levels of liver transaminase levels; E66.9 Obesity, unspecified; Z68.31 Body mass index [BMI] 31.0-31.9, adult; Z20.2 Contact with and (suspected) exposure to infections with a predominantly sexual mode of transmission
CPT/HCPCS: 36415; 80061; 80076; 83036; 86592; 86803; 87389

== ENCOUNTER 2023-08-20 02:39 | Emergency (ER) | payer OTHER, MEDICAID, SELFPAY ==
--- NOTE | ~2023-08-20 | XR_ITS ---
EXAMINATION: XR CHEST CLINICAL INFORMATION: Shortness of breath. COMPARISON: 04/02/2023. TECHNIQUE: 2 views of the chest were obtained. FINDINGS: No significant abnormality is noted involving the heart, lungs, mediastinum, bony thorax or soft tissues. XR/XR chest 2V IMPRESSION: Unremarkable examination.
[2023-08-20 02:49] VITALS: BP 125/71; PULSE 87; RESP 22; TEMP 36.6; O2SAT 90; BMI 33.9
[2023-08-20 03:16] LABS: MANUAL DIFF FLAG NO
[2023-08-20 03:18] LABS: Basophils Absolute Auto 0.1 X10*3/uL (0.0-0.2); Basophils Percent Auto 0.7 % (0-2); Eosinophils Absolute Auto 1.1 X10*3/uL (0.0-0.4); Eosinophils Percent Auto 8.9 % (0-4); Hematocrit 45.4 % (42.0-52.0); Hemoglobin 15.7 g/dl (14.0-18.0); Imm Gran Abs Auto 0.03 X10*3/uL (0.00-0.03); Imm Gran Pct Auto 0.2 % (0.0-0.4); Lymphocytes Absolute Auto 3.4 X10*3/uL (1.2-4.9); Mean Corpuscular HGB Conc 34.6 g/dl (31.0-36.0); Mean Corpuscular Hemoglobin 30.3 pg (27.0-33.0); Mean Corpuscular Volume 87.6 fL (80.0-98.0); Mean Platelet Volume 10.5 fL (9.4-12.4); Monocytes Absolute Auto 1.1 X10*3/uL (0.1-1.2); Monocytes Percent Auto 8.9 % (2-11); Neutrophils Absolute Auto 6.5 x10*3/uL (2.0-8.3); Neutrophils Percent Auto 53.3 % (45-73); Platelet Count 253 X10*3/uL (160-400); Red Blood Count 5.18 X10*6/uL (4.60-5.80); Red Cell Distribution Width 13.2 % (11.0-16.0); White Blood Count 12.2 X10*3/uL (4.8-10.8)
[2023-08-20 03:32] LABS: Alanine Aminotransferase 30 U/L (0-40); Albumin Level 4.3 g/dL (3.5-5.0); Alkaline Phosphatase 98 U/L (39-117); Anion Gap 14 (12-20); Aspartate Amino Transferase 22 U/L (5-37); Bilirubin Total 0.9 mg/dL (0.0-1.0); Blood Urea Nitrogen 12 mg/dL (9-16); Calcium 9.7 mg/dL (8.4-10.2); Carbon Dioxide 25 mmol/L (22-29); Chloride 106 mmol/L (96-108); Creatinine Clr Calc Pharmacy 172.2; Estimated Glomerular Filt Rate > 60; Glucose Random 103 mg/dL (60-115); Potassium 3.5 mmol/L (3.3-5.1); Sodium 141 mmol/L (135-145); Total Protein 7.6 g/dL (6.5-8.0)
[2023-08-20 03:40] VITALS: PULSE 86; RESP 20; O2SAT 91
[2023-08-20] MEDS: Albuterol Sulfate 7.5 MG, Albuterol Sulfate (0.083%) 2.5 MG 10 MG INHALE (03:40)
[2023-08-20 03:54] LABS: Influenza A PCR NEGATIVE (Negative); Influenza B PCR NEGATIVE (Negative); Resp Syncy Virus RNA Qual PCR NEGATIVE (Negative); SARS COV2 PCR INHOUSE NEGATIVE (Negative)
[2023-08-20 05:01] VITALS: PULSE 107; RESP 13; O2SAT 95
--- NOTE | 2023-08-20 05:03 | PC.NURSE ---
pt reports he feels better after receiving breathing tx. sats 95% on RA. resp even and unlabored. lung sounds cta. awaiting primary eval by ed provider. call medeiros within reach.
[2023-08-20 06:25] VITALS: BP 119/61; PULSE 99; RESP 20; TEMP 36.4; O2SAT 95
--- NOTE | 2023-08-20 06:43 | ED_ITS ---
HPI - Asthma General Chief Complaint: Asthma Stated Complaint: asthma/wheezing Time Seen by Provider: 08/20/23 06:34 Source: patient and family Mode of arrival: ambulatory Limitations: no limitations History of Present Illness HPI Narrative: 22 y/o male with history of asthma presents today for worsening shortness of breath with wheezing for the past 2 days. He reports that 2 days ago, he developed a dry cough that has gradually been worsening. When he continues to cough, he becomes short of breath. Has been using albuterol every 4 hours for relief and nebulizer treatments, with some relief. He reports that his asthma usually worsens around this time of the year, especially when the seasons change. Today, he become more short of breath and wheezy, his girlfriend became concerned and brought him here. Denies fevers, N/V/D, cold symptoms. complaint: shortness of breath and wheezing Onset (ago): day(s) Severity: severe Context: none known Associated symptoms: dry cough Treatments Prior to Arrival: inhaled bronchodilator Related Data Current Asthma Therapy: inhaled bronchodilator and inhaled steroid Home Medications ?Medication ?Instructions ?Recorded ?Confirmed albuterol sulfate 90 mcg/actuation 2 puff PO Q4H PRN asthma 05/18/20 05/18/20 aerosol inhaler (ProAir HFA) fluticasone propionate 220 2 puff PO BID 05/18/20 05/18/20 mcg/actuation HFA aerosol inhaler (Flovent HFA) Previous Rx's ?Medication ?Instructions ?Recorded prednisone 50 mg tablet 50 mg PO DAILY #5 tabs 05/19/20 albuterol sulfate 2.5 mg/3 mL 2.5 mg (3 mL) inhalation QID PRN 05/21/20 (0.083 %) solution for nebulization shortness of breath or wheezing #180 mL albuterol sulfate 90 mcg/actuation 1 inh inhalation QID PRN shortness 04/07/22 aerosol inhaler of breath or wheezing #8.5 grams codeine 10 mg-guaifenesin 100 mg/5 5 ml PO Q6H PRN cold symptoms #120 04/07/22 mL oral liquid (Guaifenesin AC) mL oseltamivir 75 mg capsule (Tamiflu) 75 mg PO BID 5 days #10 caps 04/07/22 prednisone 20 mg tablet 40 mg (2 x 20 mg) PO DAILY asthma 04/07/22 5 days #10 tabs albuterol sulfate 1.25 mg/3 mL 1.25 mg (3 mL) inhalation QID PRN 04/02/23 solution for nebulization shortness of breath or wheezing #90 mL albuterol sulfate 90 mcg/actuation 1 inh inhalation QID PRN shortness 04/02/23 aerosol inhaler of breath or wheezing #8.5 grams prednisone 20 mg tablet 20 mg PO DAILY 7 days #7 tabs 04/02/23 albuterol sulfate 90 mcg/actuation 1 inh inhalation QID PRN shortness 08/20/23 aerosol inhaler of breath or wheezing #6.7 grams cetirizine 10 mg tablet (Zyrtec) 10 mg PO DAILY #30 tabs 08/20/23 prednisone 50 mg tablet 50 mg PO DAILY #5 tabs 08/20/23 Allergies Allergy/AdvReac Type Severity Reaction Status Date / Time No Known Allergies Allergy Verified 08/20/23 02:53 Review of Systems 2 Review of Systems: Yes all other systems are reviewed and are negative [facility] Past Medical History Medical History Fever Leukocytosis Asthma Social History Social History Household Members: Family Housing: Apartment Do you presently have visiting nurse or other home services: No Alcohol intake: never Smoked in Last 30 Days: No Use of substances other than those prescribed or required for medical reasons: No Advance Directives: No Advance Directives Information Provided: Yes service: No Current occupational status: unemployed 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 Oriented X3. No acute distress. Head: normocephalic, atraumatic. ENT: No tonsillar swelling or exudate. Mild erythema to oropharynx with overlaying veil of clear mucus Neck: Normal inspection. Neck supple. CVS: Normal heart rate and rhythm. Pulses normal. Respiratory: No respiratory distress. Breath sounds normal. Nasal congestion audible at rest. Skin: Skin warm and dry. Normal skin color. Normal skin turgor. No rashes. Extremities: No lower extremity edema. No joint swelling. Neuro/psych: Non focal. Medications Administered Discontinued Medications Generic Name Dose Route Start Last Admin Trade Name Fifi PRN Reason Stop Dose Admin Albuterol Sulfate 7.5 mg/ 10 mg 08/20/23 03:32 08/20/23 03:40 Albuterol Sulfate 2.5 mg INHALE 08/20/23 03:33 10 mg ONCE ONE Administration Medical Decision Making Medical Decision Making [facility] Narrative: 22 y/o male with history of asthma presents today for worsening shortness of breath with wheezing for the past 2 days. Reports that he has been using his albuterol every 4 hours and nebulizer treatments at home with minimal relief. Denies fevers, N/V/D. Nasal congestion is audible- patient reports that he has been congested since infection with COVID. He states that he usually experiences worsening of his asthma during seasonal changes. In the ED, he received breathing treatment and reports that he is feeling much better after this. Denies difficulty breathing or wheezing sensation. On examination, lungs are clear to auscultation,equal breath sounds bilaterally, no wheezing auscultated. Viral respiratory panel is negative. CXR negative. CBC reveals elevated WBC at 12.2, most likely due to inflammatory response, allergic symptoms. Low clinical suspicion for infectious etiology. Patient reports that he regularly uses flonase for relief of allergy symptoms. Presentation is most likely due to acute asthma exacerbation. Oxygen 99% on room air. Comfortable to discharge home with albuterol, 5 day prednisone treatment, and loratadine for relief of allergic symptoms. Will refer to pulmonology for further evaluation of management of patient's asthma, as he states this is a reoccurring episode for him. Differential Diagnosis Differential Diagnoses: The differential diagnosis associated with the presentation includes acute asthma exacerbation, pneumonia, acute bronchitis, COVID, flu, viral URI Admission/Observation Consideration of admission/observation: Escalation of care including admission/observation considered hypoxic initially, however improved w/ neb treatment Lab Data [facility] Lab Attestation statement: I reviewed the patient's lab results. mild leukocytosis 08/20/23 03:10 08/20/23 03:10 Labs: Lab Results 08/20/23 Range/Units 03:10 WBC 12.2 H (4.8-10.8) X10*3/uL RBC 5.18 (4.60-5.80) X10*6/uL Hgb 15.7 (14.0-18.0) g/dl Hct 45.4 (42.0-52.0) % MCV 87.6 (80.0-98.0) fL MCH 30.3 (27.0-33.0) pg MCHC 34.6 (31.0-36.0) g/dl RDW 13.2 (11.0-16.0) % Plt Count 253 (160-400) X10*3/uL MPV 10.5 (9.4-12.4) fL Immature Gran % (Auto) 0.2 (0.0-0.4) % Neut % (Auto) 53.3 (45-73) % Lymph % (Auto) 28.0 (20-40) % [place] % (Auto) 8.9 (2-11) % Eos % (Auto) 8.9 H (0-4) % Baso % (Auto) 0.7 (0-2) % Lymph # (Auto) 3.4 (1.2-4.9) X10*3/uL [place] # (Auto) 1.1 (0.1-1.2) X10*3/uL Eos # (Auto) 1.1 H (0.0-0.4) X10*3/uL Baso # (Auto) 0.1 (0.0-0.2) X10*3/uL Abs Immat Gran (auto) 0.03 (0.00-0.03) X10*3/uL Absolute Neuts (auto) 6.5 (2.0-8.3) x10*3/uL Absolute Nucleated RBC 0.000 (0.0-0.012) X10*3/uL Nucleated RBC % (auto) 0.0 (0.0-0.2) /100WBC Sodium 141 (135-145) mmol/L Potassium 3.5 (3.3-5.1) mmol/L Chloride 106 (96-108) mmol/L Carbon Dioxide 25 (22-29) mmol/L Anion Gap 14 (12-20) BUN 12 (9-16) mg/dL Creatinine 0.86 (0.5-1.4) mg/dL Estim Creat Clear Calc 172.2 Estimated GFR > 60 Random Glucose 103 (60-115) mg/dL Calcium 9.7 (8.4-10.2) mg/dL Total Bilirubin 0.9 (0.0-1.0) mg/dL AST 22 (5-37) U/L ALT 30 (0-40) U/L Alkaline Phosphatase 98 (39-117) U/L Total Protein 7.6 (6.5-8.0) g/dL Albumin 4.3 (3.5-5.0) g/dL Influenza Type A (PCR) NEGATIVE (Negative) Influenza Type B (PCR) NEGATIVE (Negative) RSV RNA Qual (PCR) NEGATIVE (Negative) SARS-CoV-2 RNA (RT-PCR) NEGATIVE (Negative) Independent Interpretation I performed an independent interpretation of an: Plain X-Ray Interpretation: Interpretation is in agreement with the radiologists impression of this imaging study- No infiltrates or abnormalities noted. Negative for pneumonias. Intact costophrenic angles. Radiology Impression Discussion of test interpretation with radiology: I have reviewed the radiologist's reading. Radiologist Impression: EXAMINATION: XR CHEST CLINICAL INFORMATION: Shortness of breath. COMPARISON: 04/02/2023. TECHNIQUE: 2 views of the chest were obtained. FINDINGS: No significant abnormality is noted involving the heart, lungs, mediastinum, bony thorax or soft tissues. XR/XR chest 2V IMPRESSION: Unremarkable examination. Independent Historian Clinical information obtained from an independent historian. History obtained from or confirmed by: Spouse External Record Review External record reviewed: Outpatient record and Prior outpatient labs Prescription Management I considered prescription management with: Antibiotic Chronic Conditions Patient?s care impacted by: Other (asthma) Critical Care Time Critical Care Time Critical Care Time: Yes Total Critical Care Time: 31 Attestation: I have personally provided critical care time exclusive of time spent on separately billable procedures. Time includes review of lab data, radiology results, bedside re-evaluation of pulmonary status and monitoring for potential decompensation. Intervention performed as documented. Discharge Plan Discharge Clinical Impression: Asthma Qualifiers: Asthma severity: unspecified severity Asthma persistence: unspecified Asthma complication type: unspecified Qualified Code(s): J45.909 - Unspecified asthma, uncomplicated Patient Disposition: Home, Self-Care Instructions: Asthma (DC) Additional Instructions: take the prescribed medications as prescribed recommend using your nebulizer at home every 4 hours until asthma symptoms are improved complete the entire course of prednisone avoid allergens as able - start the new allergy medication follow up with your doctor recommend following up with Pulmonology - name and number below, call for an appointment If you develop new or worsening symptoms call 911 or come back to the ER for further evaluation. Prescriptions: New albuterol sulfate 90 mcg/actuation HFA aerosol inhaler 1 inh inhalation QID PRN (Reason: shortness of breath or wheezing) Qty: 6.7 0RF prednisone 50 mg tablet 50 mg PO DAILY Qty: 5 0RF cetirizine [Zyrtec] 10 mg tablet 10 mg PO DAILY Qty: 30 0RF No Action Flovent HFA 220 mcg/actuation HFA aerosol inhaler 2 puff PO BID albuterol sulfate [ProAir HFA] 90 mcg/actuation HFA aerosol inhaler 2 puff PO Q4H PRN (Reason: asthma) prednisone 50 mg tablet 50 mg PO DAILY Qty: 5 0RF albuterol sulfate 2.5 mg /3 mL (0.083 %) solution for nebulization 2.5 mg inhalation QID PRN (Reason: shortness of breath or wheezing) Qty: 180 0RF prednisone 20 mg tablet 40 mg PO DAILY 5 Days Qty: 10 0RF codeine-guaifenesin [Guaifenesin AC] 10-100 mg/5 mL liquid 5 ml PO Q6H PRN (Reason: cold symptoms) Qty: 120 0RF albuterol sulfate 90 mcg/actuation HFA aerosol inhaler 1 inh inhalation QID PRN (Reason: shortness of breath or wheezing) Qty: 8.5 0RF oseltamivir [Tamiflu] 75 mg capsule 75 mg PO BID 5 Days Qty: 10 0RF albuterol sulfate 90 mcg/actuation HFA aerosol inhaler 1 inh inhalation QID PRN (Reason: shortness of breath or wheezing) Qty: 8.5 0RF albuterol sulfate 1.25 mg/3 mL solution for nebulization 1.25 mg inhalation QID PRN (Reason: shortness of breath or wheezing) Qty: 90 0RF prednisone 20 mg tablet 20 mg PO DAILY 7 Days Qty: 7 0RF Referrals: [facility] [place] Pulmonology Services [Provider Group] (asthma) Darya Saunders [facility]IC REHABILITATION THERAPIST [Primary Care Provider] - Stand Alone Forms: Work/School Release Interventions: ED Discharge Assessment Last Done: 08/20/23 07:26 Discharge Date/Time: 08/20/23 07:27 Print Language: Ivorian
[2023-08-20 07:26] VITALS: BP 112/60; PULSE 95; RESP 20; TEMP 36.7
== END 2023-08-20 07:27 | disposition home or self-care (01) ==
PROVIDERS: Emergency Provider Emergency Medicine; PCP Nurse Practitioner Primary Care
DX: J45.909 Unspecified asthma, uncomplicated (principal)
CPT/HCPCS: 0241U; 71046; 80053; 85025; 94640; 99284; 99285

== ENCOUNTER 2023-09-03 00:14 | Emergency (ER) | payer OTHER, SELFPAY ==
--- NOTE | ~2023-09-03 | XR_ITS ---
EXAMINATION: XR CHEST CLINICAL INFORMATION: Cough. COMPARISON: 08/20/2023. TECHNIQUE: Frontal view of the chest was obtained. FINDINGS: No significant abnormality is noted involving the heart, lungs, mediastinum, bony thorax or soft tissues. XR/XR chest 1V IMPRESSION: Unremarkable examination.
[2023-09-03 00:17] VITALS: BP 123/78; PULSE 127; RESP 24; TEMP 36.6; O2SAT 94; BMI 32.1
[2023-09-03 01:05] VITALS: PULSE 111; RESP 18; O2SAT 93
--- NOTE | 2023-09-03 01:05 | ED.ASTHMA ---
HPI - Asthma General Chief Complaint: Asthma Stated Complaint: asthma Time Seen by Provider: 09/03/23 00:55 Source: patient and old records reviewed Mode of arrival: ambulatory Limitations: no limitations History of Present Illness HPI Narrative: 22 yo male with poorly controlled asthma who was just here in the past 2 months for acute exacerbation and went on steroid burst. He is due for pulmonology appointment 09/15. He is not sure what medications he takes for his asthma - it looks like he is on an allergy pill and albuterol INH and neb. He c/o increased wheezing he suspects due to weather and allergen exposure worsening over the past couple of days. No fevers reported. MD complaint: asthma attack , shortness of breath and wheezing Onset (ago): day(s) (few) Severity: moderate Context: allergen exposure Associated symptoms: dry cough Asthma History: childhood onset Treatments Prior to Arrival: inhaled bronchodilator Related Data Home Medications ?Medication ?Instructions ?Recorded ?Confirmed albuterol sulfate 90 mcg/actuation 2 puff PO Q4H PRN asthma 05/18/20 05/18/20 aerosol inhaler (ProAir HFA) fluticasone propionate 220 2 puff PO BID 05/18/20 05/18/20 mcg/actuation HFA aerosol inhaler (Flovent HFA) Previous Rx's ?Medication ?Instructions ?Recorded prednisone 50 mg tablet 50 mg PO DAILY #5 tabs 05/19/20 albuterol sulfate 2.5 mg/3 mL 2.5 mg (3 mL) inhalation QID PRN 05/21/20 (0.083 %) solution for nebulization shortness of breath or wheezing #180 mL albuterol sulfate 90 mcg/actuation 1 inh inhalation QID PRN shortness 04/07/22 aerosol inhaler of breath or wheezing #8.5 grams codeine 10 mg-guaifenesin 100 mg/5 5 ml PO Q6H PRN cold symptoms #120 04/07/22 mL oral liquid (Guaifenesin AC) mL oseltamivir 75 mg capsule (Tamiflu) 75 mg PO BID 5 days #10 caps 04/07/22 prednisone 20 mg tablet 40 mg (2 x 20 mg) PO DAILY asthma 04/07/22 5 days #10 tabs albuterol sulfate 1.25 mg/3 mL 1.25 mg (3 mL) inhalation QID PRN 04/02/23 solution for nebulization shortness of breath or wheezing #90 mL albuterol sulfate 90 mcg/actuation 1 inh inhalation QID PRN shortness 04/02/23 aerosol inhaler of breath or wheezing #8.5 grams prednisone 20 mg tablet 20 mg PO DAILY 7 days #7 tabs 04/02/23 albuterol sulfate 90 mcg/actuation 1 inh inhalation QID PRN shortness 08/20/23 aerosol inhaler of breath or wheezing #6.7 grams cetirizine 10 mg tablet (Zyrtec) 10 mg PO DAILY #30 tabs 08/20/23 prednisone 50 mg tablet 50 mg PO DAILY #5 tabs 08/20/23 prednisone 20 mg tablet 40 mg (2 x 20 mg) PO DAILY 5 days 09/03/23 #10 tabs Allergies Allergy/AdvReac Type Severity Reaction Status Date / Time No Known Allergies Allergy Verified 09/03/23 00:21 Review of Systems Review of Systems: Constitutional : No Fever, No Chills ENT/Mouth : No Hoarseness, No sore throat, No Rhinorrhea Eyes: No Redness, No Discharge, No Vision Changes Cardiovascular : No Chest Pain, positive SOB, positive Dyspnea on Exertion, No Edema Respiratory : positive Cough, No Sputum, positive Wheezing, Gastrointestinal : No Nausea, No Vomiting, No Diarrhea, No abdominal Pain Genitourinary : No Dysuria, No Hematuria Musculoskeletal : No joint pain, No Myalgias Skin : No rash Neuro : No Weakness, No Numbness, No Headache Psych : No anxiety, depression Heme/Lymph: No Bruising, No Bleeding Endocrine : No Polyuria, No Polydipsia All other systems reviewed and are negative [facility] Past Medical History Attestation statement: The following information was validated with the patient. 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 Oriented X3. No acute distress. Eyes: Pupils equal, round and reactive to light. ENT: Pharynx normal. Neck: Normal inspection. Neck supple. CVS: Normal heart rate and rhythm. Pulses normal. Respiratory: No respiratory distress. Breath sounds diffuse insp and exp wheezes Abdomen: Soft and non-tender. Skin: Skin warm and dry. Normal skin color. Normal skin turgor. Extremities: No lower extremity edema. No calf ttp Neuro: Oriented X 3. No motor deficit. No sensory deficit. Medications Administered Discontinued Medications Generic Name Dose Route Start Last Admin Trade Name Fifi PRN Reason Stop Dose Admin Albuterol Sulfate 7.5 mg/ 10 mg 09/03/23 01:04 09/03/23 01:09 Albuterol Sulfate 2.5 mg INHALE 09/03/23 01:05 10 mg ONCE ONE Administration Albuterol Sulfate 7.5 mg/ 10 mg 09/03/23 02:12 09/03/23 02:17 Albuterol Sulfate 2.5 mg INHALE 09/03/23 02:13 10 mg ONCE ONE Administration Magnesium Sulfate 2 gm in 50 mls @ 150 mls/hr 09/03/23 01:02 09/03/23 01:35 Magnesium Sulfate/H2o IV 09/03/23 01:21 Infused ONCE ONE Infusion Methylprednisolone Sodium Succinate 125 mg 09/03/23 01:02 09/03/23 01:12 Methylprednisolone Sod Succ 125 Mg/2 Ml Vial IVPUSH 09/03/23 01:03 125 mg ONCE ONE Administration Medical Decision Making Medical Decision Making MDM Narrative: 22 yo male with poorly controlled asthma here not knowing what medications he is on reports worsening allergy like symptoms as well at this time given symptoms will obtain CXR for PTX, start on nebs, IV steroids and IV magnesium. Will monitor. Differential Diagnosis Differential Diagnoses: The differential diagnosis associated with the presentation includes asthma exacerbation, PTX Admission/Observation Consideration of admission/observation: Escalation of care including admission/observation considered no hypoxia, improved feeling better stable for DC refuses admission after discussion - discussed getting labs and further workup but states he does not want to be admitted. Independent Interpretation I performed an independent interpretation of an: Plain X-Ray (no pneumonia) Radiology Impression Discussion of test interpretation with radiology: I have reviewed the radiologist's reading. Independent Historian Clinical information obtained from an independent historian. History obtained from or confirmed by: Spouse External Record Review External record reviewed: Inpatient record Prescription Management I considered prescription management with: Other Critical Care Time Critical Care Time Critical Care Time: Yes Total Critical Care Time: 40 Attestation: repeat hour long nebs, IV magnesium, IV steroids I attest to this time spent taking care of the patient Discharge Plan Discharge Clinical Impression: Asthma with acute exacerbation Qualifiers: Asthma severity: moderate Asthma persistence: persistent Qualified Code(s): J45.41 - Moderate persistent asthma with (acute) exacerbation Patient Disposition: Home, Self-Care Instructions: Asthma (ED) Additional Instructions: follow up with primary care doctor return for worsening symptoms or concerns you were offered admission but declined you can come back at any time Prescriptions: New prednisone 20 mg tablet 40 mg PO DAILY 5 Days Qty: 10 0RF No Action Flovent HFA 220 mcg/actuation HFA aerosol inhaler 2 puff PO BID albuterol sulfate [ProAir HFA] 90 mcg/actuation HFA aerosol inhaler 2 puff PO Q4H PRN (Reason: asthma) prednisone 50 mg tablet 50 mg PO DAILY Qty: 5 0RF albuterol sulfate 2.5 mg /3 mL (0.083 %) solution for nebulization 2.5 mg inhalation QID PRN (Reason: shortness of breath or wheezing) Qty: 180 0RF prednisone 20 mg tablet 40 mg PO DAILY 5 Days Qty: 10 0RF codeine-guaifenesin [Guaifenesin AC] 10-100 mg/5 mL liquid 5 ml PO Q6H PRN (Reason: cold symptoms) Qty: 120 0RF albuterol sulfate 90 mcg/actuation HFA aerosol inhaler 1 inh inhalation QID PRN (Reason: shortness of breath or wheezing) Qty: 8.5 0RF oseltamivir [Tamiflu] 75 mg capsule 75 mg PO BID 5 Days Qty: 10 0RF albuterol sulfate 90 mcg/actuation HFA aerosol inhaler 1 inh inhalation QID PRN (Reason: shortness of breath or wheezing) Qty: 8.5 0RF albuterol sulfate 1.25 mg/3 mL solution for nebulization 1.25 mg inhalation QID PRN (Reason: shortness of breath or wheezing) Qty: 90 0RF prednisone 20 mg tablet 20 mg PO DAILY 7 Days Qty: 7 0RF albuterol sulfate 90 mcg/actuation HFA aerosol inhaler 1 inh inhalation QID PRN (Reason: shortness of breath or wheezing) Qty: 6.7 0RF prednisone 50 mg tablet 50 mg PO DAILY Qty: 5 0RF cetirizine [Zyrtec] 10 mg tablet 10 mg PO DAILY Qty: 30 0RF Stand Alone Forms: Work/School Release Print Language: Occitan
[2023-09-03] MEDS: Albuterol Sulfate 7.5 MG, Albuterol Sulfate (0.083%) 2.5 MG 10 MG INHALE ×2 (01:09→02:17)
[2023-09-03] MEDS: Magnesium Sulfate/H2O 2 GM/50 ML PIGGYBACK IV (01:12)
[2023-09-03] MEDS: methylPREDNISolone Sod Succ 125 MG/2 ML VIAL IVPUSH (01:12)
[2023-09-03 02:20] VITALS: PULSE 120; RESP 18; O2SAT 90
[2023-09-03 04:45] VITALS: BP 126/82; PULSE 101; RESP 16; TEMP 36.8; O2SAT 94
== END 2023-09-03 04:47 | disposition home or self-care (01) ==
PROVIDERS: Emergency Provider Emergency Medicine; PCP Nurse Practitioner Primary Care
DX: J45.41 Moderate persistent asthma with (acute) exacerbation (principal); R06.02 Shortness of breath; R05.9 Cough, unspecified; Z79.899 Other long term (current) drug therapy
CPT/HCPCS: 71045; 94640; 96365; 96375; 99284; 99285; J2919; J3475

== ENCOUNTER 2023-09-17 13:46 | Outpatient (AMB) | payer OTHER, MEDICAID, SELFPAY ==
--- NOTE | 2023-09-17 13:48 | MHC.OFFVIS ---
Vital Signs 09/17/23 13:49 Height 6 ft Weight 243 lb 9.773 oz BMI 33.0 BP 122/60 Blood Pressure Location Rt brachial Position Sitting Pulse 99 Pulse Source Pulse Oximeter Pulse Oximetry (%) 96 Oxygen Delivery Method Room Air Intake Visit Reasons: asthma ER follow up Allergies No Known Allergies Allergy (Verified 09/17/23 13:53) HPI HPI asthma ER follow up: Details: Dat is a pleasant 22-year-old male, never smoker with underlying asthma since childhood. He was referred from the emergency room for pulmonary evaluation. He has been seen twice in the past month for asthma exacerbations reporting chest tightness, dry cough, dyspnea and wheezing. He was last seen on 09/03/2023 and on 08/20/23, treated with nebulizers, IV steroids and discharged with prednisone 40 mg x 5 days on both occasions. Last CXR unremarkable. Has been using albuterol p.r.n. with moderate effect. He reports asthma since childhood, never requiring intubation. He reports seasonal allergies, no recent allergy testing. Denies any pets. In previous labs he had significantly elevated eosinophils. He has been taking a daily antihistamine and uses a daily ICS since the beginning of the year with suboptimal effect. He denies any pertinent family history. He reports working in [employer] x 3 years with dust exposures. 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 Review of Systems Const Denies chills, Denies excessive sweating, Denies fever(s), Denies headache(s) and Denies night sweats Eyes Denies dry eyes, Denies irritation and Denies itchy eyes ENT Reports Normal hearing present, Denies headache(s), Denies nasal congestion, Denies nasal discharge, Denies post nasal drip and Denies sore throat Card Denies chest pain, Denies chest pain at rest, Denies chest pain with activity, Denies claudication, Denies leg edema, Denies dyspnea, Denies dyspnea on exertion, Denies orthopnea and Denies paroxysmal nocturnal dyspnea Resp Denies chest congestion, Denies excessive phlegm production, Denies pain on inspiration, Denies pain with cough, Denies dyspnea, Denies dyspnea on exertion and Denies stridor Musc Denies myalgias Neuro Reports Normal hearing present and Denies headache(s) Endo Denies excessive sweating Mariusz/Lymph Denies lymphadenopathy Aller/Immun Denies itchy eyes and Denies seasonal rhinorrhea Physical Exam Vital Signs: Last Vital Signs Pulse 99 09/17/23 13:49 BP 122/60 09/17/23 13:49 Pulse Ox 96 09/17/23 13:49 Oxygen Delivery Method Room Air 09/17/23 13:49 BMI result Body Mass Index 33.0 Const General: cooperative, healthy appearing, comfortable, no acute distress, well developed and alert Nutritional Appearance: obese Orientation/consciousness: patient oriented x3 Limitations: no limitations HEENT Head: Yes normal to inspection, Yes normocephalic and Yes atraumatic Ears: hearing grossly normal bilaterally and external ears normal Eyes General: appearance normal, both eyes and all related structures Eyelids: Yes eyelids normal Sclerae: sclerae normal EOM: EOMs intact bilaterally Neck Neck: Yes normal visual inspection and Yes no lymphadenopathy Lymphatic: no lymphadenopathy noted Chest Chest palpation & inspection: normal inspection of the chest Resp Effort & Inspection: normal respiratory effort, able to speak in complete sentences, no audible wheezes, no cough, no stridor, not tachypneic, no tripod positioning and no use of accessory muscles Auscultation: clear to auscultation bilaterally Cardio Jugular venous distension: no JVD Rate: regular rate Rhythm: regular rhythm Skin Other: warm, dry General skin exam: no rashes or lesions noted Neuro General: patient oriented x3 Cranial nerves: Yes Normal hearing present Cognition (Neuro): normal cognition Gait exam (Neuro): Normal gait present Extrem General: Yes normal to inspection, Yes capillary refill normal, Yes no clubbing, cyanosis or edema and Yes no pedal edema Psych Appearance: grossly normal and well kempt Speech and movement: Normal speech and movement present and Clear speech present Affect: normal affect Attitude: cooperative Thought process: Normal thought process present Thought content: Normal thought content present Insight: Good insight present (Psych) Judgement: Good judgement present (Psych) Assessment & Plan Assessment & Plan (1) Asthma: Code(s): J45.909 - Unspecified asthma, uncomplicated Category: Medical Qualifiers: Asthma complication type: unspecified Asthma persistence: unspecified Asthma severity: unspecified severity Qualified Code(s): J45.909 - Unspecified asthma, uncomplicated (2) Environmental and seasonal allergies: Code(s): J30.89 - Other allergic rhinitis Category: Medical Plan Dat's symptoms are likely related to poorly controlled asthma on ICS requiring two prednisone bursts in the last month. Today respiratory exam unremarkable. CXR negative for acute findings. Will send for PFT and RAST to evaluate. Will also switch from ICS to Symbicort. All questions were answered and patient is in agreement of plan. Will follow up to review results or sooner if needed. Orders: Orders PFT pulmonary function test Today J45.909 - Unspecified asthma, uncomplicated Resp Allergy Profile Region I Today J - Other allergic rhinitis Immunoglobulin E Today J - Other allergic rhinitis Complete Blood Count Auto Diff Today J - Other allergic rhinitis Medications: New budesonide-formoterol 80-4.5 mcg/actuation (Symbicort) 2 puffs inhalation Q12H 10.2 grams 3RF Discontinued albuterol sulfate 90 mcg/actuation Discontinued Reason: Patient Completed Course 1 inh inhalation QID PRN 8.5 grams 0RF shortness of breath or wheezing albuterol sulfate Discontinued Reason: Patient Completed Course 1.25 mg (3 mL) inhalation QID PRN 90 mL 0RF shortness of breath or wheezing Coding Level of Care Code New Pt Level 4 (51460) Diagnoses Asthma J45.909 Asthma complication type: unspecified Asthma persistence: unspecified Asthma severity: unspecified severity Environmental and seasonal allergies J30.89
[2023-09-17 13:49] VITALS: BP 122/60; PULSE 99; O2SAT 96; BMI 33.0
== END 2023-09-17 14:30 | disposition home or self-care (01) ==
PROVIDERS: PCP Nurse Practitioner Primary Care; Visit Provider Nurse Practitioner Family
DX: J45.909 Unspecified asthma, uncomplicated (principal); J30.89 Other allergic rhinitis
CPT/HCPCS: 99204

== ENCOUNTER → 2023-09-17 13:46 | Outpatient (BNVA) | payer OTHER, MEDICAID, SELFPAY | PROVIDERS: PCP Nurse Practitioner Primary Care; Visit Provider Nurse Practitioner Family ==

== ENCOUNTER 2023-11-29 11:16 | Outpatient (REF) | payer OTHER, SELFPAY ==
[2023-11-29 11:38] LABS: MANUAL DIFF FLAG NO
[2023-11-29 12:54] LABS: Basophils Absolute Auto 0.1 X10*3/uL (0.0-0.2); Basophils Percent Auto 0.9 % (0-2); Eosinophils Absolute Auto 0.6 X10*3/uL (0.0-0.4); Eosinophils Percent Auto 6.8 % (0-4); Hematocrit 43.1 % (42.0-52.0); Hemoglobin 14.7 g/dl (14.0-18.0); Imm Gran Abs Auto 0.03 X10*3/uL (0.00-0.03); Imm Gran Pct Auto 0.3 % (0.0-0.4); Lymphocytes Absolute Auto 2.4 X10*3/uL (1.2-4.9); Lymphocytes Percent Auto 27.5 % (20-40); Mean Corpuscular HGB Conc 34.1 g/dl (31.0-36.0); Mean Corpuscular Hemoglobin 30.2 pg (27.0-33.0); Mean Corpuscular Volume 88.7 fL (80.0-98.0); Monocytes Absolute Auto 0.8 X10*3/uL (0.1-1.2); Monocytes Percent Auto 9.5 % (2-11); Neutrophils Absolute Auto 4.8 x10*3/uL (2.0-8.3); Platelet Count 246 X10*3/uL (160-400); Red Blood Count 4.86 X10*6/uL (4.60-5.80); White Blood Count 8.7 X10*3/uL (4.8-10.8)
[2023-12-03 22:59] LABS: Class Alternaria alternata 0; Class Aspergillus fumigatus 0; Class Bermuda Grass 0; Class Birch 0; Class Cat Dander 0; Class Cladosporium herbarum 0; Class Cockroach 0/1; Class Common Ragweed 0; Class Cottonwood 0; Class Derm. pterony 0/1; Class Dermatophagoides farinae 0; Class Dog Dander 0; Class Elm 0; Class Maple Box Elder 0; Class Mountain Cedar 0; Class Mouse Urine Protein 0; Class Mugwort 0; Class Oak 0; Class Penicillium crysogenum 0; Class Rough Pigweed 0; Class Sheep Sorrel 0; Class Sycamore 0; Class Timothy Grass 3; Class Walnut Tree 0; Class White Ash 0; Class White Mulberry 0; D001 IgE D pteronyssinus 0.11 kU/L; D002 - IgE D farinae <0.10 kU/L; E001 - IgE Cat Dander <0.10 kU/L; E005 - IgE Dog Dander <0.10 kU/L; E072-IgE Mouse Urine <0.10 kU/L; G002 IgE Bermuda Grass <0.10 kU/L; G006 - IgE Timothy Grass 6.62 kU/L; I006-IgE Cockroach, German 0.33 kU/L; Immunoglobulin E 171 kU/L (<OR=114); M001 IgE Penicillium chrysogen <0.10 kU/L; M002 - IgE Cladosporium herbar <0.10 kU/L; M003 - IgE Aspergillus fumigat <0.10 kU/L; M006 - IgE Alternaria alternat <0.10 kU/L; T001 IgE Maple/Box Elder <0.10 kU/L; T003 IgE Common Silver Birch <0.10 kU/L; T006 - IgE Cedar, Mountain <0.10 kU/L; T007 - IgE Oak, White <0.10 kU/L; T008 IgE Elm, American <0.10 kU/L; T010 - IgE Walnut <0.10 kU/L; T011 - IgE Maple Leaf Sycamore <0.10 kU/L; T014 - IgE Cottonwood <0.10 kU/L; T015 - IgE Ash, White <0.10 kU/L; T070 - IgE White Mulberry <0.10 kU/L; W001 - IgE Ragweed, Short <0.10 kU/L; W006 - IgE Mugwort <0.10 kU/L; W014 IgE Pigweed, Common <0.10 kU/L; W018 IgE Sheep Sorrel <0.10 kU/L
== END 2023-11-29 11:17 | disposition home or self-care (01) ==
LOC: HO.LAB 11:16
PROVIDERS: PCP Nurse Practitioner Primary Care; Visit Provider Nurse Practitioner Family
DX: J30.89 Other allergic rhinitis (principal)
CPT/HCPCS: 36415; 82785; 85025; 86003

== ENCOUNTER 2023-12-03 09:23 | Outpatient (AMB) | payer OTHER, MEDICAID, SELFPAY ==
--- NOTE | 2023-12-02 11:57 | A.OFFVIS_ITS ---
Vital Signs 12/03/23 09:26 Height 6 ft Weight 248 lb 0.321 oz BMI 33.6 BP 110/66 Blood Pressure Location Rt brachial Position Sitting Pulse 75 Pulse Source Pulse Oximeter Pulse Oximetry (%) 97 Oxygen Delivery Method Room Air Intake Visit Reasons: Asthma/PFT Follow Up Allergies No Known Allergies Allergy (Verified 12/03/23 09:33) HPI HPI Asthma/PFT Follow Up: Details: Dat is a pleasant 22-year-old male, never smoker with underlying asthma since childhood, never requiring intubations. He was initially referred from the ED as he had been seen twice in the past month for asthma exacerbations. At the last visit, he was switched from albuterol MDI to Symbicort 80 mcg. He reports significant improvements using albuterol very infrequently. He denies any visits to urgent care or hospitalizations since the last visit. Today he presents to review RAST however he had blood drawn the other day and results are still pending. Eosinophils are elevated at 6.8. 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 Review of Systems Const Denies chills, Denies excessive sweating, Denies fever(s), Denies headache(s) and Denies night sweats Eyes Denies dry eyes, Denies irritation and Denies itchy eyes ENT Reports Normal hearing present, Denies headache(s), Denies nasal congestion, Denies nasal discharge, Denies post nasal drip and Denies sore throat Card Denies chest pain, Denies chest pain at rest, Denies chest pain with activity, Denies claudication, Denies leg edema, Denies dyspnea, Denies dyspnea on exertion, Denies orthopnea and Denies paroxysmal nocturnal dyspnea Resp Denies chest congestion, Denies excessive phlegm production, Denies pain on inspiration, Denies pain with cough, Denies dyspnea, Denies dyspnea on exertion and Denies stridor Musc Denies myalgias Neuro Reports Normal hearing present and Denies headache(s) Endo Denies excessive sweating Mariusz/Lymph Denies lymphadenopathy Aller/Immun Denies itchy eyes and Denies seasonal rhinorrhea Physical Exam Vital Signs: Last Vital Signs Pulse 75 12/03/23 09:26 BP 110/66 12/03/23 09:26 Pulse Ox 97 12/03/23 09:26 Oxygen Delivery Method Room Air 12/03/23 09:26 BMI result Body Mass Index 33.6 Const General: cooperative, healthy appearing, comfortable, no acute distress, well developed and alert Nutritional Appearance: obese Orientation/consciousness: patient oriented x3 Limitations: no limitations HEENT Head: Yes normal to inspection, Yes normocephalic and Yes atraumatic Ears: hearing grossly normal bilaterally and external ears normal Eyes General: appearance normal, both eyes and all related structures Eyelids: Yes eyelids normal Sclerae: sclerae normal EOM: EOMs intact bilaterally Neck Neck: Yes normal visual inspection and Yes no lymphadenopathy Lymphatic: no lymphadenopathy noted Chest Chest palpation & inspection: normal inspection of the chest Resp Effort & Inspection: normal respiratory effort, able to speak in complete sentences, no audible wheezes, no cough, no stridor, not tachypneic, no tripod positioning and no use of accessory muscles Auscultation: clear to auscultation bilaterally Cardio Jugular venous distension: no JVD Rate: regular rate Rhythm: regular rhythm Skin Other: warm, dry General skin exam: no rashes or lesions noted Neuro General: patient oriented x3 Cranial nerves: Yes Normal hearing present Cognition (Neuro): normal cognition Gait exam (Neuro): Normal gait present Extrem General: Yes normal to inspection, Yes capillary refill normal, Yes no clubbing, cyanosis or edema and Yes no pedal edema Psych Appearance: grossly normal and well kempt Speech and movement: Normal speech and movement present and Clear speech present Affect: normal affect Attitude: cooperative Thought process: Normal thought process present Thought content: Normal thought content present Insight: Good insight present (Psych) Judgement: Good judgement present (Psych) Assessment & Plan Assessment & Plan (1) Asthma: Code(s): J45.909 - Unspecified asthma, uncomplicated Category: Medical Qualifiers: Asthma complication type: unspecified Asthma persistence: unspecified Asthma severity: unspecified severity Qualified Code(s): J45.909 - Unspecified asthma, uncomplicated (2) Environmental and seasonal allergies: Code(s): J30.89 - Other allergic rhinitis Category: Medical Plan Dat reports good symptomatic control with Symbicort 80mcg and albuterol MDI. Advised to continue current regimen. He is aware to call if he develops worsening symptoms. RAST not resulted, will call patient when available. PFT ordered however not scheduled, offered to send order elsewhere however patient would like to wait [place] [facility] [place] All questions were answered and patient is in agreement of plan. Will follow up in 6 months or sooner if needed. Medications: Refilled budesonide-formoterol 80-4.5 mcg/actuation (Symbicort) 2 puffs inhalation Q12H 10.2 grams 3RF Discontinued albuterol sulfate 90 mcg/actuation Discontinued Reason: Patient Completed Course 1 inh inhalation QID PRN 8.5 grams 0RF shortness of breath or wheezing Coding Level of Care Code Est Pt Level 3 (11722) Diagnoses Asthma J45.909 Asthma complication type: unspecified Asthma persistence: unspecified Asthma severity: unspecified severity Environmental and seasonal allergies J30.89
[2023-12-03 09:26] VITALS: BP 110/66; PULSE 75; O2SAT 97; BMI 33.6
== END 2023-12-03 09:46 | disposition home or self-care (01) ==
PROVIDERS: PCP Nurse Practitioner Primary Care; Visit Provider Nurse Practitioner Family
DX: J45.909 Unspecified asthma, uncomplicated (principal); J30.89 Other allergic rhinitis
CPT/HCPCS: 99213

== ENCOUNTER → 2023-12-03 09:23 | Outpatient (BNVA) | payer OTHER, MEDICAID, SELFPAY | PROVIDERS: PCP Nurse Practitioner Primary Care; Visit Provider Nurse Practitioner Family ==

== ENCOUNTER 2024-06-02 09:18 | Outpatient (AMB) | payer OTHER, MEDICAID, SELFPAY ==
--- NOTE | 2024-06-02 09:20 | A.OFFVIS_ITS ---
Vital Signs 06/02/24 09:22 Height 6 ft Weight 259 lb 0.69 oz BMI 35.1 BP 136/78 Blood Pressure Location Rt brachial Position Sitting Pulse 85 Pulse Source Pulse Oximeter Pulse Oximetry (%) 96 Oxygen Delivery Method Room Air Intake Visit Reasons: Asthma Allergies No Known Allergies Allergy (Verified 06/02/24 09:24) HPI HPI Asthma: Details: Dat is a pleasant 23-year-old male, never smoker with underlying asthma since childhood. At baseline, he has been well controlled on Symbicort 80 mcg and Zyrtec using albuterol MDI a few times per week. He reports cold weather has been triggering asthma more frequently. He denies any visits to urgent care or hospitalizations since the last visit. An order was placed for PFT however never scheduled. Today he presents for a routine visit. 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 Review of Systems Const Denies chills, Denies excessive sweating, Denies fever(s), Denies headache(s) and Denies night sweats Eyes Denies dry eyes, Denies irritation and Denies itchy eyes ENT Reports Normal hearing present, Denies headache(s), Denies nasal congestion, Denies nasal discharge, Denies post nasal drip and Denies sore throat Card Denies chest pain, Denies chest pain at rest, Denies chest pain with activity, Denies claudication, Denies leg edema, Denies dyspnea, Denies dyspnea on exertion, Denies orthopnea and Denies paroxysmal nocturnal dyspnea Resp Denies chest congestion, Denies cough, Denies excessive phlegm production, Denies pain on inspiration, Denies pain with cough, Denies dyspnea, Denies dys pnea on exertion, Denies stridor and Denies wheezing Musc Denies myalgias Neuro Reports Normal hearing present and Denies headache(s) Endo Denies excessive sweating Mariusz/Lymph Denies lymphadenopathy Aller/Immun Denies itchy eyes, Denies seasonal rhinorrhea and Denies wheezing Physical Exam Const General: cooperative, healthy appearing, comfortable, no acute distress, well developed and alert Nutritional Appearance: obese Orientation/consciousness: patient oriented x3 Limitations: no limitations HEENT Head: Yes normal to inspection, Yes normocephalic and Yes atraumatic Ears: hearing grossly normal bilaterally and external ears normal Eyes General: appearance normal, both eyes and all related structures Eyelids: Yes eyelids normal Sclerae: sclerae normal EOM: EOMs intact bilaterally Neck Neck: Yes normal visual inspection and Yes no lymphadenopathy Lymphatic: no lymphadenopathy noted Chest Chest palpation & inspection: normal inspection of the chest Resp Effort & Inspection: normal respiratory effort, able to speak in complete sentences, no audible wheezes, no cough, no stridor, not tachypneic, no tripod positioning and no use of accessory muscles Auscultation: clear to auscultation bilaterally Cardio Jugular venous distension: no JVD Rate: regular rate Rhythm: regular rhythm Skin Other: warm, dry General skin exam: no rashes or lesions noted Neuro General: patient oriented x3 Cranial nerves: Yes Normal hearing present Cognition (Neuro): normal cognition Gait exam (Neuro): Normal gait present Extrem General: Yes normal to inspection, Yes capillary refill normal, Yes no clubbing, cyanosis or edema and Yes no pedal edema Psych Appearance: grossly normal and well kempt Speech and movement: Normal speech and movement present and Clear speech present Affect: normal affect Attitude: cooperative Thought process: Normal thought process present Thought content: Normal thought content present Insight: Good insight present (Psych) Judgement: Good judgement present (Psych) Assessment & Plan Assessment & Plan (1) Asthma: Code(s): J45.909 - Unspecified asthma, uncomplicated Category: Medical Qualifiers: Asthma complication type: unspecified Asthma persistence: unspecified Asthma severity: unspecified severity Qualified Code(s): J45.909 - Unspecified asthma, uncomplicated (2) Environmental and seasonal allergies: Code(s): J30.89 - Other allergic rhinitis Category: Medical Plan Dat reports suboptimal effect with Symbicort 80mcg, will increase to Symbicort 160 mcg. PFT ordered and will be scheduled today. All questions were answered and patient is in agreement of plan. Will follow up in 3 months or sooner if needed. Medications: New budesonide-formoterol 160-4.5 mcg/actuation (Symbicort) 2 puffs inhalation Q12H 10.2 grams 3RF Coding Level of Care Code Est Pt Level 3 (36089) Diagnoses Asthma J45.909 Asthma complication type: unspecified Asthma persistence: unspecified Asthma severity: unspecified severity Environmental and seasonal allergies J30.89
[2024-06-02 09:22] VITALS: BP 136/78; PULSE 85; O2SAT 96; BMI 35.1
== END 2024-06-02 09:37 | disposition home or self-care (01) ==
PROVIDERS: PCP Nurse Practitioner Primary Care; Visit Provider Nurse Practitioner Family
DX: J45.909 Unspecified asthma, uncomplicated (principal); J30.89 Other allergic rhinitis
CPT/HCPCS: 99213

== ENCOUNTER → 2024-06-02 09:18 | Outpatient (BNVA) | payer OTHER, MEDICAID, SELFPAY | PROVIDERS: PCP Nurse Practitioner Primary Care; Visit Provider Nurse Practitioner Family ==

== ENCOUNTER 2024-07-28 08:53 | Outpatient (AMB) | payer OTHER, MEDICAID, SELFPAY ==
--- NOTE | 2024-07-28 09:09 | MHC.OFFVIS ---
Vital Signs 07/28/24 09:12 Height 6 ft Weight 255 lb 11.779 oz BMI 34.7 BP 130/68 Blood Pressure Location Rt brachial Position Sitting Pulse 69 Pulse Source Pulse Oximeter Pulse Oximetry (%) 98 Oxygen Delivery Method Room Air Intake Visit Reasons: Asthma Clinical Assoc Required: No Costume Mistress: Costume Mistress offered & declined Accompanied by: Self / Same As Patient Allergies No Known Allergies Allergy (Verified 07/28/24 09:14) Medication List - Last Reconciled 07/28/24 by Lynda Aponte LPN albuterol sulfate 2.5 mg (3 mL) inhalation QID PRN albuterol sulfate 90 mcg/actuation 1 inh inhalation QID PRN budesonide-formoterol 160-4.5 mcg/actuation (Symbicort) 2 puffs inhalation Q12H cetirizine (Zyrtec) 10 mg PO DAILY HPI HPI Asthma: Details: Dat is a pleasant 23-year-old male, never smoker with underlying asthma since childhood. At baseline, he has been well controlled on Symbicort 160 mcg, Johanna and Flonase with great control of respiratory symptoms. He notes very infrequent use of albuterol MDI. He denies any visits to urgent care or hospitalizations since the last visit. He has a PFT scheduled for tomorrow. Today he presents for a routine visit. 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 Review of Systems Const Denies chills, Denies excessive sweating, Denies fever(s), Denies headache(s) and Denies night sweats Eyes Denies dry eyes, Denies irritation and Denies itchy eyes ENT Reports Normal hearing present, Denies headache(s), Denies nasal discharge, Denies post nasal drip and Denies sore throat Card Denies chest pain, Denies chest pain at rest, Denies chest pain with activity, Denies claudication, Denies leg edema, Denies dyspnea, Denies dyspnea on exertion, Denies orthopnea and Denies paroxysmal nocturnal dyspnea Resp Denies chest congestion, Denies cough, Denies excessive phlegm production, Denies pain on inspiration, Denies pain with cough, Denies dyspnea, Denies dyspnea on exertion, Denies stridor and Denies wheezing Musc Denies myalgias Neuro Reports Normal hearing present and Denies headache(s) Endo Denies excessive sweating Mariusz/Lymph Denies lymphadenopathy Aller/Immun Denies itchy eyes, Denies seasonal rhinorrhea and Denies wheezing Physical Exam Vital Signs: Last Vital Signs Pulse 69 07/28/24 09:12 BP 130/68 07/28/24 09:12 Pulse Ox 98 07/28/24 09:12 Oxygen Delivery Method Room Air 07/28/24 09:12 BMI result Body Mass Index 34.7 Const General: cooperative, healthy appearing, comfortable, no acute distress, well developed and alert Orientation/consciousness: patient oriented x3 Limitations: no limitations HEENT Head: Yes normal to inspection, Yes normocephalic and Yes atraumatic Ears: hearing grossly normal bilaterally and external ears normal Eyes General: appearance normal, both eyes and all related structures Eyelids: Yes eyelids normal Sclerae: sclerae normal EOM: EOMs intact bilaterally Neck Neck: Yes normal visual inspection and Yes no lymphadenopathy Lymphatic: no lymphadenopathy noted Chest Chest palpation & inspection: normal inspection of the chest Resp Effort & Inspection: normal respiratory effort, able to speak in complete sentences, no audible wheezes, no cough, no stridor, not tachypneic, no tripod positioning and no use of accessory muscles Auscultation: clear to auscultation bilaterally Cardio Jugular venous distension: no JVD Rate: regular rate Rhythm: regular rhythm Skin Other: warm, dry General skin exam: no rashes or lesions noted Neuro General: patient oriented x3 Cranial nerves: Yes Normal hearing present Cognition (Neuro): normal cognition Gait exam (Neuro): Normal gait present Extrem General: Yes normal to inspection, Yes capillary refill normal, Yes no clubbing, cyanosis or edema and Yes no pedal edema Psych Appearance: grossly normal and well kempt Speech and movement: Normal speech and movement present and Clear speech present Affect: normal affect Attitude: cooperative Thought process: Normal thought process present Thought content: Normal thought content present Insight: Good insight present (Psych) Judgement: Good judgement present (Psych) Assessment & Plan Assessment & Plan (1) Asthma: Code(s): J45.909 - Unspecified asthma, uncomplicated Category: Medical Qualifiers: Asthma complication type: unspecified Asthma persistence: unspecified Asthma severity: unspecified severity Qualified Code(s): J45.909 - Unspecified asthma, uncomplicated (2) Environmental and seasonal allergies: Code(s): J30.89 - Other allergic rhinitis Category: Medical Plan Dat reports good control of respiratory symptoms on current regimen, advised to continue. He is aware to call if symptoms worsen with seasonal changes. May consider allergy referral. All questions were answered and patient is in agreement of plan. Will follow up in 6 months or sooner if needed. Medications: Refilled budesonide-formoterol 160-4.5 mcg/actuation (Symbicort) 2 puffs inhalation Q12H 10.2 grams 6RF Coding Level of Care Code Est Pt Level 3 (34372) Diagnoses Asthma J45.909 Asthma complication type: unspecified Asthma persistence: unspecified Asthma severity: unspecified severity Environmental and seasonal allergies J30.89
[2024-07-28 09:12] VITALS: BP 130/68; PULSE 69; O2SAT 98; BMI 34.7
== END 2024-07-28 09:31 | disposition home or self-care (01) ==
LOC: HO.HPS 08:53
PROVIDERS: PCP Nurse Practitioner Primary Care; Visit Provider Nurse Practitioner Family
DX: J45.909 Unspecified asthma, uncomplicated (principal); J30.89 Other allergic rhinitis
CPT/HCPCS: 99213

== ENCOUNTER → 2024-07-28 08:53 | Outpatient (BNVA) | payer OTHER, MEDICAID, SELFPAY | PROVIDERS: PCP Nurse Practitioner Primary Care; Visit Provider Nurse Practitioner Family ==

== ENCOUNTER 2024-07-29 10:57 | Outpatient (REF) | payer OTHER, SELFPAY ==
--- NOTE | 2024-07-29 11:04 | PFT_ITS ---
Indication: Asthma Spirometry [FEV1 to FVC 68%; FEV1 4.73 L; FVC 6.97 L. There is a significant response to bronchodilators noted.] Lung Volumes [Total lung capacity 114% predicted; residual volume 94% predicted; expiratory reserve volume 56% predicted] Diffusion Capacity [DLCO 118% predicted] Flow Volume Loops [Fasciculations of the inspiratory flows likely due to redundant tissue or vocal cord dysfunction] Comparisons [none] Interpretation [There is an obstructive ventilatory defect consistent with uncontrolled asthma. The patient does have a significant response to bronchodilators. Also significant small airways disease. In addition to the the patient appears to have significant fasciculations of the inspiratory limb suggesting the possibility of vocal cord dysfunction or redundant tissue. Lung volumes are within normal limits. Diffusing capacity also within normal limits. Clinical correlation warranted.] MTDD
[2024-07-29 11:45] VITALS: PULSE 87; O2SAT 96
--- OUTSIDE RECORDS SUMMARY | 2024-07-29 13:24 | XMS_ITS | Encounter Summary ---
Author Organization [employer] Address [address] [facility] 7t [place] [address] Care Team Providers Care Fagoter Name Role Phone Darya Saunders Primary Care Provider Reason for Visit * Reason Onset Date Comments Medication Question 12/19/2022 Encounter Details Date Type Department Care Team ([facility] st Contact Info) Description 12/19/2022 Telephone [facility] MED[facility]INE [address] [place] [address] Darya Saunders ANP [address] [place] [address] Medication Question Social History Tobacco Use Types Packs/Day Years Used Date Smoking Tobacco: Never Smokeless Tobacco: Never Alcohol Use Standard Drinks/Week Comments Never 0 (1 standard drink = 0.6 oz pur e alcohol) Sex and Gender Information Value Date Recorded Sex Assigned at Male 03/06/2022 10:15 AM EDT Legal Sex Male 10:15 AM EDT Gender Identity Male 03/06/2022 10:15 AM EDT Sexual Orientation Straight 03/06/2022 10 :15 AM EDT documented as of this encounter Miscellaneous Notes * Telephone Encounter - Veda Lazcano RN - 12/19/2022 2:43 PM EDT Pt not seen in greater than 1y. Needs physical. Recall placed for 01/19 * Telephone Encounter - Lesly Pat - 12/19/2022 12:09 PM EDT Tc from pt requesting med refill for nebulizer solution . Skip Pit Worker did not see medication on med list. Please call pt to clarify . documented in this encounter Plan of Treatment Not on file documented as of this encounter Visit Diagnoses Not on filedocumented in this encounter Care Teams Fagoter Relationship Specialty Start Date End Date Darya Saunders ANP [address] [place] [phone] PCP - General Family Medicine 01/04/22 documented as of this encounter
--- OUTSIDE RECORDS SUMMARY | 2024-07-29 13:24 | XMS_ITS | Encounter Summary ---
Author Organization [employer] Address [address] [facility] 7t [place] [address] Care Team Providers Care Section 8 Property Manager Name Role Phone Darya Saunders Primary Care Provider [phone] Reason for Visit * Reason Comments Med Refill Encounter Details Date Type Department Care Team ([facility] st Contact Info) Description 06/18/2023 Refill [facility] MEDICINE [address] [place], [place] [phone] Darya Saunders ANP [address] [place], [place] [phone] Mild persistent asthma without complication Social History Tobacco Use Types Packs/Day Years Used Date Smoking Tobacco: Never Smokeless Tobacco: Never Alcohol Use Standard Drinks/Week Comments Never 0 (1 standard drink = 0.6 oz pur e alcohol) Depression Answer Date Recorded Patient Health Questionnaire-9 Score 0 01/26/2023 Housing Stability Answer Date Recorded What is your housing situation today? I have sabino major 02/20/[address] you li ve. Do you have problems with any of the following? None of the above 02/20/2023 Food Insecurity Answer Date Recorded Within the past 12 months, y ou worried that your food would run out before you got money to buy more: Never True 02/20/2023 Within the past 12 months,th e food you bought just didn't last and you didn't have enough money to get more: Never True Transportation Answer Date Recorded In the past 12 months, has l ack of transportation kept you from medical appts, meetings, work or from getting things needed for daily living? No 02/20/2023 Utilities Answer Date Recorded In the past 12 months, has t he electric, gas, oil or water company threatened to shut off services in your home? No 02/20/2023 Depression Answer Date Recorded Patient Health Questionnaire-2 Score 0 01/26/2023 Sex and Gender Information Value Date Recorded Sex Assigned at Male 03/06/2022 10:15 AM EDT Legal Sex Male 10:15 AM EDT Gender Identity Male 03/06/2022 10:15 AM EDT Sexual Orientation Straight 03/06/2022 10 :15 AM EDT documented as of this encounter Plan of Treatment Not on file documented as of this encounter Visit Diagnoses Diagnosis Mild persistent asthma without complication documented in this encounter Additional Health Concerns Assessment Noted Time PHQ-9 Depression Total Score: 0 01/27/20 23 1:58 PM EDT documented as of this encounter Care Teams Section 8 Property Manager Relationship Specialty Start Date End Date Darya Saunders ANP [address] [place] [phone] PCP - General Family Medicine 01/04/22 documented as of this encounter
--- OUTSIDE RECORDS SUMMARY | 2024-07-29 13:24 | XMS_ITS | Encounter Summary ---
Author Organization [employer] Address [address] [facility] 7[address] [place] [address] Care Team Providers Care Filleter Name Role Phone Darya Saunders Primary Care Provider [phone] Reason for Visit * Reason Comments Med Refill Encounter Details Date Type Department Care Team ([facility] st Contact Info) Description 06/14/2023 Refill [facility] MEDICINE [address] [place], [place] [phone] Darya Saunders ANP [address] [place], [place] [phone] Mild persistent asthma without complication Social History [...] documented as of this encounter Care Teams Filleter Relationship Specialty Start Date End Date Darya Saunders ANP [address] [place] [phone] PCP - General Family Medicine 01/04/22 documented as of this encounter
--- OUTSIDE RECORDS SUMMARY | 2024-07-29 13:25 | XMS_ITS | Clinical Summary ---
Author Organization [employer] Address [address] [facility] 7t [place] [address] Care Team Providers Care Nuclear Engineer Name Role Phone Darya Saunders Primary Care Provider [phone] Allergies No known active allergies Medications albuterol (2.5 MG/3ML) 0.083% nebulizer solutionIndicati ons:Mild persistent asthma without complication Take 3 mL (2.5 mg) by nebulization every 6 (six) hours if needed for wheezing. 75 mL 11 3 Active albuterol 108 (90 Base) MCG/ACT inhalerIndicatio ns:Mild persistent asthma without complication Inhale 2 puffs every 6 (six) hours if needed for wheezing. 18 g 2 4 Active budesonide-formo terol (Symbicort) 80-4.5 MCG/ACT inhaler Inhale 2 puffs in the morning and at bedtime. 4 Active fexofenadine (Johanna) 180 MG tabletIndication s:Non-seasonal allergic rhinitis due to other allergic trigger Take 1 tablet (180 mg) by mouth if needed each day (Allergies). 90 tablet 3 4 025 Active Active Problems Problem Noted Date Diagnosed Date Allergic rhinitis 04/16/2023 04/16/2023 Mild persistent asthma without complication 01/06 ALT (SGPT) level raised 06/07/2018 04/16/20 23 Obesity 05/30/2018 Overweight 02/06/2017 04/16/2023 Attention deficit hyperactivity disorder 011 Encounters Date Type Department Care Team Description 06/10/2024 10:15 AM EST Office Visit [facility] MEDICINE [address] [place], [place] [phone] Darya Saunders ANP Mild persistent asthma without complication (Primary Dx) 06/10/2024 Travel 06/09/2024 Telephone [facility] MEDICINE [address] [place] [address] [employer] Maya [place] chart prep 05/27/2024 Patient Outreach [facility] [address] [place] [address] Darya Saunders ANP Pre-visit Planning (SDOH Screening negative and Tobacco screening negative) from Last 3 Months Immunizations Name Administration Dates Next Due DTaP 12/22/2002, 1,08/18/1999,04/18,02/17/1999 HPV, Quadrivalent 11/06/2013,10/07/2012,07/31/19 12 Hep A, ped/adol, 2 dose 11/06/2013,07/06/2010 Hep B, Adolescent or Pediatric 05/17/2000,1999,08/18/1999 Hib ([facility]) 05/17/2000, 0,04/18/1999,02/17 IPV 12/22/2002, 1,04/18/1999,02/17 Influenza injectable quadriv alent IIV4 with preservative 02/03/2015 Influenza injectable quadriv alent preservative free 01/26/2023,02/06/2017,04/08/2014 Influenza, IIV3, injectable 02/01/2007,0 05/10/2006,03/08/2005,02/24,02/05/2003 Influenza, Split (incl. elida fied surface antigen) 04/22/2013,04/16/2012 Influenza, Unspecified 04/08/2003 Influenza, live, intranasal 04/08/2003 MMR 12/22/2002,02/02/2000 Meningococcal MCV4P ACYW-135 02/03/2015,07/07/19 11 Pneumococcal Conjugate PCV 20 04/16/2023 Pneumococcal Conjugate PCV 7 05/17/2000,02/02/20 00 TD (adult), 2 Lf tetanus tox oid, preservative free, adsorbed 11/30/2021 Tdap 07/06/2010 Varicella 04/25/2008,02/02/2000 Social History Tobacco Use Types Packs/Day Years Used Date Smoking Tobacco: Never Passive Smoke Exposure: Never Smokeless Tobacco: Never Tobacco Cessation:Counseling Given: Not Answered Alcohol Use Standard Drinks/Week Comments Never 0 (1 standard drink = 0.6 oz pur e alcohol) Depression Answer Date Recorded Patient Health Questionnaire-9 Score 0 10/23/2023 Patient Health Questionnaire-9 Score 0 10/23/2023 Last PHQ-9: Questionnaire Data Not on file 0 10/23/2023 Housing Stability Answer Date Recorded What is your housing situation today? I have sabino moriah 02/20/[address] you li [...] Date Recorded Patient Health Questionnaire-2 Score 0 10/23/2023 Internet Access Answer Date Recorded Internet Access Q1 Yes 05/27/2024 Internet Access Q2 Not on file 05/27/2024 Sex and Gender Information Value Date Recorded Sex Assigned at Male 03/06/2022 10:15 AM EDT Legal Sex Male 10:15 AM EDT Gender Identity Male 03/06/2022 10:15 AM EDT Sexual Orientation Straight 03/06/2022 10 :15 AM EDT Last Filed Vital Signs Vital Sign Reading Time Taken Comments Blood Pressure 136/86 06/10/2024 10:22 AM EST Pulse 96 06/10/2024 10:22 AM EST Temperature 36.7 ??C (98 ??F) 06/10/2024 10:22 AM EST Respiratory Rate 14 06/10/2024 10:22 AM EST Oxygen Saturation 98% 06/10/2024 10:22 AM EST Inhaled Oxygen Concentration - - Weight 118 kg (261 lb) 06/10/2024 10:22 AM EST Height 182.9 cm (6') 10/23/2023 8:50 AM EDT Body Mass Index 35.4 10/23/2023 8:50 AM EDT Plan of Treatment Health Maintenance Due Date Last Done Comments Alcohol/Substance Use Screening 2010 Family Planning (PISQ) 2013 COVID-19 Vaccine ( season) 2024 Influenza Vaccine (#1) 2024 , 02/06/2017, 02/03/2015, Additional history exists Depression Screening 10/22/2024 10/23/2023, 10/23/19 24 SDOH Screening 05/27/2025 05/27/2024 Tobacco Screening 06/10/2025 06/10/2024 Lipid Panel 08/05/2028 08/06/2023 DTaP/Tdap/Td Vaccines (8 - Td or Tdap) 12/01/2031 11/30/2021, 07/06/2010, 12/22/2002, Additional history exists Zoster Vaccines (1 of 2) 2048 RSV Patients and Patients Aged 60 years or older (1 - 1-dose 75+ series) 2073 HIB Vaccines Completed 05/17/2000, 08/05, 04/18/1999, Additional history exists Hepatitis B Vaccines Completed 05/17/2000, 10/20/1999, 08/18/1999 IPV Vaccines Completed 12/22/2002, 05/07, 04/18/1999, Additional history exists HPV Vaccines Completed 11/06/2013, 07/2012, 07/31/2011 Hepatitis A Vaccines Completed 11/06/2013, 07/07/19 11 Meningococcal Vaccine Completed 02/03/2015, 011 Pneumococcal Vaccine: Pediatrics (0 to 5 Years) and At-Risk Patients (6 to 49) Years) Completed 04/16/2023, 05/17/2000, 02/02/2000 HIV Screening Completed 08/06/2023 Hepatitis C Screening Completed 08/06/2023 RSV under 20 months Aged Out No longe r eligible based on patient's age to complete this topic Rotavirus Vaccines Aged Out No longer eligible based on patient's age to complete this topic Procedures Procedure Name Priority Date/Time Associated Diagnosis Comments HEPATITIS C AB W/REFL TO HCV RNA, QN, PCR Routine 08/06/2023 10:44 AM EDT Routine screening for STI (sexually transmitted infection) HIV 1/2 ANTIGEN/ANTIBODY, FOURTH GENERATION W/RFL Routine 08/06/2023 10:44 AM EDT Routine screening for STI (sexually transmitted infection) LIPID PANEL, STANDARD Routine 08/06/2023 10:44 AM EDT ALT (SGPT) level raised from Last 3 Months or Most Recently Relevant to Health Maintenance Results * Hepatitis C Antibody with Reflex to HCV, RNA, Quantitative, Real-Time PCR (08/06/2023 10:44 AM EDT) Hepatitis C Antibody Nonreactive Nonreactive [facility] Comment:Antibodies to HCV no t detected; does not exclude early acuteHCV infection. Blood Venous blood specimen / Unknown 08/06/2023 10:44 AM EDT 08/06/2023 11:09 AM EDT [facility] LAB BLOOD ORDERABLES Final Resul t [facility] [address] [place] [phone] * HIV-1/2 Antigen and Antibodies, Fourth Generation, with Reflexes (08/06/2023 10:44 AM EDT) HIV AB/AG Nonreactive Nonreactive [facility] Comment:HIV-1 p24 Ag and/or HIV-1/HIV-2 Ab not detected.A test result that is nonreactive does not exclude thepossibility of exposure to or infection with HIV-1 and/orHIV-2. Nonreactive results in this assay for individualswith prior exposure to HIV-1 and/or HIV-2 may be due toantigen and antibody levels that are below the limit ofdetection of this assay.The [employer] HIV Ag/Ab Combo assay result andsupplemental assay results should be interpreted inconjunction with the patient's clinical presentation,history and other laboratory results. If the results areinconsistent with clinical evidence, additional testing issuggested to confirm the result. Blood Venous blood specimen / Unknown 08/06/2023 10:44 AM EDT 08/06/2023 11:09 AM EDT Darya Saunders [facility] LAB BLOOD ORDERABLES Final Resul t [facility] [address] [place] [address] [phone] * (ABNORMAL) Lipid Panel, Standard (08/06/2023 10:44 AM EDT) Triglycerides 71 <150 mg/dL [facility] Comment:Desirable Triglyceri de: less than 150 mg/dLBorderline High Triglyceride 150-199 mg/dLHigh Triglyceride: 200-499 mg/dLVery High Triglyceride: greater than or equal to 5OO mg/dL Cholesterol 182 <200 mg/dL [facility] Comment:Desirable Cholestero l: less than 200 mg/dLBorderline High Cholesterol: 200-239 mg/dLHigh Cholesterol: greater than 239 mg/dL LDL Cholesterol Calculated 136(H) <100 mg/dL [facility] Comment:Desirable LDL: less than 100 mg/dLNear Optimal/Above Optimal LDL: 110- 129 mg/dLBorderline High LDL: 130-159 mg/dLHigh LDL: 160-189 mg/dLVery High LDL: greater than or equal to 190 mg/dL HDL Cholesterol 32(L) >40 mg/dL [facility] Comment:Desirable HDL: great er than 40 mg/dL Note: This HDL assay may give artificially low results in patients with liver disease. Blood Venous blood specimen / Unknown 08/06/2023 10:44 AM EDT 08/06/2023 11:09 AM EDT Darya Saunders ANP LAB BLOOD ORDERABLES Final Resul t [facility] [address] [place] [phone] from Last 3 Months or Most Recently Relevant to Health Maintenance Insurance [employer] PPO Care Teams Nuclear Engineer Relationship Specialty Start Date End Date Darya Saunders ANP [address] [place] [phone] PCP - General Family Medicine 01/04/22
== END 2024-07-29 10:58 | disposition home or self-care (01) ==
LOC: HO.RESP 10:57
PROVIDERS: PCP Nurse Practitioner Primary Care; Visit Provider Nurse Practitioner Family
DX: J45.909 Unspecified asthma, uncomplicated (principal)
CPT/HCPCS: 94010; 94640; 94727; 94729

== ENCOUNTER → 2024-07-29 11:04 | Outpatient (BNV) | payer OTHER, SELFPAY | PROVIDERS: PCP Nurse Practitioner Primary Care; Visit Provider Hospitalist | DX: J45.909 Unspecified asthma, uncomplicated (principal) | CPT/HCPCS: 94060; 94727; 94729 ==

== ENCOUNTER 2024-10-05 14:17 | Inpatient (IN) | payer OTHER, MEDICAID, SELFPAY ==
[2024-10-05] VITALS (15 sets, daily range): BP systolic 107–140; BP diastolic 52–105; PULSE 133–168; RESP 12–32; TEMP 36.4–37.1; O2SAT 88–97; BMI 34.8; BMI 35.4
--- NOTE | ~2024-10-05 | XR_ITS ---
CLINICAL HISTORY: Dyspnea, cough 1 view chest x-ray. Comparison: None Findings: The lungs are adequately expanded. No focal consolidation. No effusion or pneumothorax. Cardiac and mediastinal contours are within normal limits. No acute osseous abnormality Impression: No acute process. This document has been electronically signed by: Frantz Tai MD on 10/05/2024 16:15:48
--- NOTE | 2024-10-05 14:19 | ED.GENADULT ---
HPI - General Adult General Chief complaint: Asthma Stated complaint: difficulty breathing Time Seen by Provider: 10/05/24 14:26 Source: patient Mode of arrival: ambulatory Limitations: no limitations History of Present Illness ED Provider: Garett Landon DO HPI narrative: 23-year-old male with poorly controlled asthma presents to the ED due to difficulty breathing and respiratory distress despite using his inhaler and nebulizer at home. Patient states he is prescribed a maintenance inhaler but has not used it in a long time. He tried both albuterol nebulizer and albuterol inhaler without spacer at home with no improvement. His symptoms started yesterday and he describes a sore throat, runny nose, cough and respiratory distress. He denies exertional chest pain, lower extremity pain or swelling, and feels this is similar to his previous asthma exacerbations. Denies previous hospital admissions, BiPAP therapy or intubation/ICU level of care for his asthma exacerbations. He denies nausea, vomiting or abdominal pain. Related Data Previous Rx's ?Medication ?Instructions ?Recorded albuterol sulfate 2.5 mg/3 mL 2.5 mg (3 mL) inhalation QID PRN 05/21/20 (0.083 %) solution for nebulization shortness of breath or wheezing #180 mL albuterol sulfate 90 mcg/actuation 1 inh inhalation QID PRN shortness 08/20/23 aerosol inhaler of breath or wheezing #6.7 grams cetirizine 10 mg tablet (Zyrtec) 10 mg PO DAILY #30 tabs 08/20/23 budesonide-formoterol HFA 160 2 puff inhalation Q12H #10.2 grams 08/18/24 mcg-4.5 mcg/actuation aerosol inhaler (Symbicort) Allergies Allergy/AdvReac Type Severity Reaction Status Date / Time No Known Allergies Allergy Verified 10/05/24 14:20 Review of Systems Review of Systems: Yes all other systems are reviewed and are negative PMFSH Past Medical History Medical History Fever Leukocytosis Asthma Social History Social History Household Members: Family Housing: Apartment Do you presently have visiting nurse or other home services: No Alcohol intake: never Patient Tobacco Use Status: Never used Tobacco Smoked in Last 30 Days: No Use of substances other than those prescribed or required for medical reasons: No Advance Directives: No Advance Directives Information Provided: Yes Do you have a plan to hurt others: No Plan service: No Current occupational status: unemployed 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 Physical Exam ED Vital Signs: Vital Signs - 24 hr 10/05/24 14:18 10/05/24 14:37 10/05/24 14:37 Temperature 97.5 F Pulse Rate 150 H 142 H 140 H Respiratory Rate 22 H 26 H 32 H Blood Pressure 140/64 H 126/91 H Pulse Oximetry 88 L 92 Oxygen Delivery Method Room Air Nasal Cannula Oxygen Flow Rate 4 10/05/24 14:47 10/05/24 15:09 10/05/24 15:16 Temperature Pulse Rate 168 H 151 H 143 H Respiratory Rate 20 26 H 24 H Blood Pressure 137/105 H 107/53 L Pulse Oximetry 92 95 Oxygen Delivery Method Nasal Cannula Nasal Cannula Oxygen Flow Rate 4 10/05/24 16:04 10/05/24 16:20 10/05/24 17:22 Temperature 98.6 F Pulse Rate 140 H 134 H 135 H Respiratory Rate 22 H 20 Blood Pressure 118/52 L Pulse Oximetry 97 92 Oxygen Delivery Method Nasal Cannula Room Air Oxygen Flow Rate 4 10/05/24 17:48 10/05/24 17:56 10/05/24 18:36 Temperature Pulse Rate 135 H 150 H 135 H Respiratory Rate 12 24 H 24 H Blood Pressure 117/53 L 132/60 Pulse Oximetry 92 90 L 91 L Oxygen Delivery Method Room Air Room Air Room Air Oxygen Flow Rate 10/05/24 18:44 Temperature Pulse Rate 146 H Respiratory Rate 20 Blood Pressure Pulse Oximetry Oxygen Delivery Method Oxygen Flow Rate BMI result Body Mass Index 34.8 Constitutional: ?Alert, oriented, unable to speak in full sentences due to respiratory distress HEENT: ?Normocephalic, atraumatic. ?Moist mucous membranes Eyes: ?PERRL, EOMI Neck: ?Supple, nontender Chest: ?No chest wall tenderness Respiratory: ?Tachypnea, chest wall retractions, poor air movement and bilateral wheezing with prolonged expiratory phase throughout all lung barnard Cardio: ?Tachycardic rate, regular rhythm, no murmur, 2+ radial and DP pulses symmetrically GI: ?Soft, nondistended, nontender Back: ?Normal range of motion, nontender Skin: ?No rash, no lesions Neuro: ?Alert and oriented to person, place and time, moves all 4 extremities, no focal deficits Extremities: ?No swelling or tenderness, full range of motion Psych: ?Calm, alert and cooperative, appropriate behavior Course Course Course Narrative: RME performed by Grisel Lawrence PA-C. Patient is a 23 year old assigned male at presenting to the emergency department with shortness of breath / difficulty breathing. Patient states he has a history of asthma and has been having trouble with it using his inhaler and nebulizer with no relief. Detailed physical exam and review of systems are deferred to the manager primary care. Labs, imaging, swabs ordered. Patient placed back in the waiting room pending room availability and results. Reevaluation(s) Reevaluation #1: Significant improvement noted after 3 DuoNebs. Patient feels much more comfortable. Still has some wheezing. Time: 16:39 Medications Administered Generic Name Dose Route Start Last Admin Trade Name Freq PRN Reason Stop Dose Admin Sodium Chloride 1,000 mls @ 999 mls/hr 10/05/24 19:00 10/05/24 18:55 Ns IV 10/05/24 20:00 999 mls/hr .Q1H1M GLORIA Administration Discontinued Medications Generic Name Dose Route Start Last Admin Trade Name Freq PRN Reason Stop Dose Admin Albuterol Sulfate 5 mg/ 0 mg 10/05/24 14:32 10/05/24 14:35 Albuterol/Ipratropium 3 ml INHALE 10/05/24 14:33 7.5 each ONCE ONE Administration Albuterol Sulfate 2.5 mg/ 0 mg 10/05/24 15:08 10/05/24 15:14 Albuterol/Ipratropium 3 ml INHALE 10/05/24 15:09 5 dose ONCE ONE Administration Albuterol Sulfate 2.5 mg/ 0 mg 10/05/24 16:13 10/05/24 16:20 Albuterol/Ipratropium 3 ml INHALE 10/05/24 16:14 5 dose ONCE ONE Administration Albuterol Sulfate 2.5 mg/ 0 mg 10/05/24 18:41 10/05/24 18:43 Albuterol/Ipratropium 3 ml INHALE 10/05/24 18:42 5 dose ONCE ONE Administration Magnesium Sulfate/Dextrose 1 gm in 100 mls @ 100 mls/hr 10/05/24 14:20 10/05/24 15:34 Magnesium Sulfate/D5w IV 10/05/24 15:19 Infused ONCE ONE Infusion Sodium Chloride 1,000 mls @ 999 mls/hr 10/05/24 18:00 10/05/24 18:54 Ns IV 10/05/24 19:00 Infused .Q1H1M GLORIA Infusion Methylprednisolone Sodium Succinate 60 mg 10/05/24 14:20 10/05/24 14:33 Methylprednisolone Sod Succ 125 Mg Vial IVPUSH 10/05/24 14:21 60 mg ONCE ONE Administration Medical Decision Making Medical Decision Making [facility] Narrative: This is a patient presenting with signs and symptoms consistent with an asthma exacerbation. Upon arrival he was immediately moved to a room, received both methylprednisolone and magnesium IV. He also received a DuoNeb and repeat examination shows some improvement. Labs ordered. I suspect the patient will need several rounds of bronchodilator therapy to determine disposition. I do not suspect other dangerous etiologies to dyspnea such as ACS or PE. I discussed with him the importance to fill his prescription for his maintenance inhaler at home to prevent exacerbations in the future. Patient has been evaluated several times in between and after 3 rounds of DuoNebs. He continues to exhibit tachycardia that did not improve with IV fluids and I will order a 2 L. he is hypoxic at 90% without history of emphysema. Given the severity of his exacerbation, he will require inpatient management. He is overall slowly improving and not requiring noninvasive positive pressure ventilation. Case reviewed with hospitalist who agrees with plan. Admission/Observation Consideration of admission/observation: Escalation of care including admission/observation considered A fair amount of respiratory distress and poor air movement on lung auscultation upon arrival Lab Data [facility] Lab Attestation statement: I reviewed the patient's lab results. 10/05/24 14:58 10/05/24 14:55 Labs: Lab Results 10/05/24 10/05/24 10/05/24 Range/Units 14:50 14:55 14:58 WBC 18.1 H (4.8-10.8) X10*3/uL RBC 5.39 (4.60-5.80) X10*6/uL Hgb 16.1 (14.0-18.0) g/dl Hct 46.4 (42.0-52.0) % MCV 86.1 (80.0-98.0) fL MCH 29.9 (27.0-33.0) pg MCHC 34.7 (31.0-36.0) g/dl RDW 13.3 (11.0-16.0) % Plt Count 246 (160-400) X10*3/uL MPV 10.6 (9.4-12.4) fL Immature Gran % (Auto) 0.4 (0.0-0.4) % Neut % (Auto) 76.3 H (45-73) % Lymph % (Auto) 10.0 L (20-40) % [place] % (Auto) 9.4 (2-11) % Eos % (Auto) 3.3 (0-4) % Baso % (Auto) 0.6 (0-2) % Lymph # (Auto) 1.8 (1.2-4.9) X10*3/uL [place] # (Auto) 1.7 H (0.1-1.2) X10*3/uL Eos # (Auto) 0.6 H (0.0-0.4) X10*3/uL Baso # (Auto) 0.1 (0.0-0.2) X10*3/uL Abs Immat Gran (auto) 0.08 H (0.00-0.03) X10*3/uL Absolute Neuts (auto) 13.8 H (2.0-8.3) x10*3/uL Absolute Nucleated RBC 0.000 (0.0-0.012) X10*3/uL Nucleated RBC % (auto) 0.0 (0.0-0.2) /100WBC Smear Tech's Comments VERIFIED VBG pH (7.32-7.43) VBG pCO2 mmHg VBG pO2 mmHg VBG HCO3 (22-26) mmol/L VBG O2 Saturation % VBG Base Excess mmol/L Sodium 143 (135-145) mmol/L Potassium 3.1 L (3.3-5.1) mmol/L Chloride 107 (96-108) mmol/L Carbon Dioxide 24 (22-29) mmol/L Anion Gap 15 (12-20) BUN 14 (9-16) mg/dL Creatinine 1.01 (0.5-1.4) mg/dL Estim Creat Clear Calc 147.1 Estimated GFR > 60 Random Glucose 130 H (60-115) mg/dL Calcium 9.3 (8.4-10.2) mg/dL Magnesium 2.5 (1.6-2.6) mg/dL Total Bilirubin 1.2 H (0.0-1.0) mg/dL AST 42 H (5-37) U/L ALT 51 H (0-40) U/L Alkaline Phosphatase 102 (39-117) U/L Total Protein 7.5 (6.5-8.0) g/dL Albumin 4.4 (3.5-5.0) g/dL Influenza Type A (PCR) NEGATIVE (Negative) Influenza Type B (PCR) NEGATIVE (Negative) RSV RNA Qual (PCR) NEGATIVE (Negative) SARS-CoV-2 RNA (RT-PCR) NEGATIVE (Negative) 10/05/24 Range/Units 15:07 WBC (4.8-10.8) X10*3/uL RBC (4.60-5.80) X10*6/uL Hgb (14.0-18.0) g/dl Hct (42.0-52.0) % MCV (80.0-98.0) fL MCH (27.0-33.0) pg MCHC (31.0-36.0) g/dl RDW (11.0-16.0) % Plt Count (160-400) X10*3/uL MPV (9.4-12.4) fL Immature Gran % (Auto) (0.0-0.4) % Neut % (Auto) (45-73) % Lymph % (Auto) (20-40) % [place] % (Auto) (2-11) % Eos % (Auto) (0-4) % Baso % (Auto) (0-2) % Lymph # (Auto) (1.2-4.9) X10*3/uL [place] # (Auto) (0.1-1.2) X10*3/uL Eos # (Auto) (0.0-0.4) X10*3/uL Baso # (Auto) (0.0-0.2) X10*3/uL Abs Immat Gran (auto) (0.00-0.03) X10*3/uL Absolute Neuts (auto) (2.0-8.3) x10*3/uL Absolute Nucleated RBC (0.0-0.012) X10*3/uL Nucleated RBC % (auto) (0.0-0.2) /100WBC Smear Tech's Comments VBG pH 7.30 L (7.32-7.43) VBG pCO2 52 mmHg VBG pO2 53 mmHg VBG HCO3 26 (22-26) mmol/L VBG O2 Saturation 74.0 % VBG Base Excess -1.0 mmol/L Sodium (135-145) mmol/L Potassium (3.3-5.1) mmol/L Chloride (96-108) mmol/L Carbon Dioxide (22-29) mmol/L Anion Gap (12-20) BUN (9-16) mg/dL Creatinine (0.5-1.4) mg/dL Estim Creat Clear Calc Estimated GFR Random Glucose (60-115) mg/dL Calcium (8.4-10.2) mg/dL Magnesium (1.6-2.6) mg/dL Total Bilirubin (0.0-1.0) mg/dL AST (5-37) U/L ALT (0-40) U/L Alkaline Phosphatase (39-117) U/L Total Protein (6.5-8.0) g/dL Albumin (3.5-5.0) g/dL Influenza Type A (PCR) (Negative) Influenza Type B (PCR) (Negative) RSV RNA Qual (PCR) (Negative) SARS-CoV-2 RNA (RT-PCR) (Negative) Independent Interpretation I performed an independent interpretation of an: EKG and Plain X-Ray (Chest x-ray per my independent interpretation shows no acute cardiopulmonary abnormalities.) Interpretation: Sinus tachycardia at 157 beats per minute, due to tachycardia, limited evaluation but prolonged QTC, no diagnostic ST wave changes, normal axis, no prior for comparison. Critical Care Time Critical Care Time Critical Care Time: Yes Total Critical Care Time: 35 Attestation: Due to concern for airway and respiratory failure with severe respiratory distress on arrival, the patient required multiple side assessments physical exam is in between and following several rounds of breathing treatments as well as IV fluids and magnesium. I interpreted his electrocardiogram, chest x-ray and venous blood gas. Garett Landon, DO Discharge Plan Discharge Clinical Impression: Asthma with acute exacerbation, Hypoxia Patient Disposition: Admitted As Inpatient Prescriptions: No Action budesonide-formoterol [Symbicort] 160-4.5 mcg/actuation HFA aerosol inhaler 2 puff inhalation Q12H Qty: 10.2 3RF albuterol sulfate 2.5 mg /3 mL (0.083 %) solution for nebulization 2.5 mg inhalation QID PRN (Reason: shortness of breath or wheezing) Qty: 180 0RF albuterol sulfate 90 mcg/actuation HFA aerosol inhaler 1 inh inhalation QID PRN (Reason: shortness of breath or wheezing) Qty: 6.7 0RF cetirizine [Zyrtec] 10 mg tablet 10 mg PO DAILY Qty: 30 0RF Print Language: German
--- NOTE | 2024-10-05 14:20 | ECG_ITS ---
Test Reason : ASTHAM Blood Pressure : */* mmHG Vent. Rate : 157 BPM Atrial Rate : 157 BPM P-R Int : 128 ms QRS Dur : 80 ms QT Int : 328 ms P-R-T Axes : 80 45 70 degrees QTcB Int : 530 ms Sinus tachycardia Otherwise normal ECG When compared with ECG of 31-Mar-2008 10:59, Increase in ventricular rate Referred By: Grisel Lawrence Electronically Signed By: CRISTINA CASTELLANO
[2024-10-05] MEDS: Magnesium Sulfate/D5W 1 GM/100 ML PIGGYBACK IV (14:34)
[2024-10-05] MEDS: Albuterol Sulfate 5 MG, Albuterol/Iprat 2.5/0.5MG 3 ML 3 ML INHALE (14:35)
--- NOTE | 2024-10-05 14:35 | PC.NURSE ---
pt is alert and oriented, skin appropriate for ethnicity but also diaphoretic, ls wheezing through out and very tight, pt is using accessory muscles and trypoding sating at 94% on 4l, hr ranging in the high 150's, pt reports having difficulty breathing that started yesterday but got worse this morning using his inhalers at home without any improvement
[2024-10-05 15:07] LABS: Basophils Absolute Auto 0.1 X10*3/uL (0.0-0.2); Basophils Percent Auto 0.6 % (0-2); Eosinophils Absolute Auto 0.6 X10*3/uL (0.0-0.4); Eosinophils Percent Auto 3.3 % (0-4); Hematocrit 46.4 % (42.0-52.0); Hemoglobin 16.1 g/dl (14.0-18.0); Imm Gran Abs Auto 0.08 X10*3/uL (0.00-0.03); Imm Gran Pct Auto 0.4 % (0.0-0.4); Lymphocytes Absolute Auto 1.8 X10*3/uL (1.2-4.9); MANUAL DIFF FLAG SCAN; Mean Corpuscular HGB Conc 34.7 g/dl (31.0-36.0); Mean Corpuscular Hemoglobin 29.9 pg (27.0-33.0); Mean Corpuscular Volume 86.1 fL (80.0-98.0); Mean Platelet Volume 10.6 fL (9.4-12.4); Monocytes Absolute Auto 1.7 X10*3/uL (0.1-1.2); Monocytes Percent Auto 9.4 % (2-11); Neutrophils Absolute Auto 13.8 x10*3/uL (2.0-8.3); Neutrophils Percent Auto 76.3 % (45-73); Platelet Count 246 X10*3/uL (160-400); Red Blood Count 5.39 X10*6/uL (4.60-5.80); Red Cell Distribution Width 13.3 % (11.0-16.0); SCAN SMEAR FLAG 1; White Blood Count 18.1 X10*3/uL (4.8-10.8)
[2024-10-05 15:10] LABS: Venous Blood Gas Refer to POC result
[2024-10-05 15:10] LABS: VBG HCO3 26 mmol/L (22-26); VBG pCO2 52 mmHg; VBG pO2 53 mmHg
[2024-10-05] MEDS: Albuterol Sulfate 2.5 MG, Albuterol/Iprat 2.5/0.5MG 3 ML 3 ML INHALE ×3 (15:14→18:43)
[2024-10-05 15:25] LABS: SLIDE REVIEW VERIFIED
[2024-10-05 15:34] LABS: Alanine Aminotransferase 51 U/L (0-40); Albumin Level 4.4 g/dL (3.5-5.0); Alkaline Phosphatase 102 U/L (39-117); Anion Gap 15 (12-20); Aspartate Amino Transferase 42 U/L (5-37); Bilirubin Total 1.2 mg/dL (0.0-1.0); Blood Urea Nitrogen 14 mg/dL (9-16); Calcium 9.3 mg/dL (8.4-10.2); Carbon Dioxide 24 mmol/L (22-29); Chloride 107 mmol/L (96-108); Creatinine Clr Calc Pharmacy 147.1; Estimated Glomerular Filt Rate > 60; Glucose Random 130 mg/dL (60-115); Magnesium 2.5 mg/dL (1.6-2.6); Potassium 3.1 mmol/L (3.3-5.1); Sodium 143 mmol/L (135-145); Total Protein 7.5 g/dL (6.5-8.0)
[2024-10-05 15:53] LABS: Influenza A PCR NEGATIVE (Negative); Influenza B PCR NEGATIVE (Negative); Resp Syncy Virus RNA Qual PCR NEGATIVE (Negative); SARS COV2 PCR INHOUSE NEGATIVE (Negative)
--- NOTE | 2024-10-05 16:05 | PC.NURSE ---
pt reports feeling better, pt appears better as well, no more diaphoretic, respiration even and unlabored, ls improved still wheezing but moving air much better, still sinus tach on the monitor in the 140's
[2024-10-05] MEDS: 0.9 % Sodium Chloride 1,000 ML 999 ML IV ×4 (17:56→22:07)
--- NOTE | 2024-10-05 18:40 | PC.NURSE ---
Addendum entered by Tiesha Medina 10/05/24 18:52: pt put on 2l via nasal cannula Original Note: pt not getting better after the ambulation pt has increase work of breathing, sating anywhere from 90-93% on room air still tachy but now in the high 130-low 140's, ls wheezing through out
--- NOTE | 2024-10-05 19:48 | P.HPHOSP_ITS ---
History of Present Illness Date of Service: 10/05/24 Attending physician on admission: Kenneth Steel Chief Complaint: Shortness of breath Dat Stone is a 23 years old man with past medical history significant for asthma and obesity presents to the emergency department complaining of worsening shortness on breath over the last 2 days associated with dry cough and wheezing. He also reported some chest tightness, nasal congestion or sore throat. He denied headache, fever or chills. He mentioned that he has been having flu-like symptoms (his girlfriend had the same symptoms). He used his rescue inhaler without significant improvement of symptoms. He did not report any acute gastrointestinal or genitourinary symptoms. Denies tobacco smoking, marijuana smoking, alcohol abuse or illicit drug use. He has no history of intubation. In the ED, he was found to have marked tachycardia 140-150 bpm, , tachypnea and O2 sats of 88% on room air. Blood workup was remarkable for leukocytosis of 18.1. Hemoglobin is 16.1 and platelets. Lactic acid is mildly elevated at 7.3. Venous blood gas a pH of 7.3 and pCO2 52; are normal. There is mild hypokalemia of 3.1 but no other electrolyte imbalances. Troponin and BNP are normal. Renal function is normal. CXR showed no acute process. ECG showed sinus tachycardia, HR 157 bpm (artifiact). ED tx: DuoNeb X 4 (5, 5, 5, 7,5), Solu-Medrol 60 mg IV, magnesium IV. Review of Systems 2 Review of Systems: All 12 systems were reviewed and normal except as noted in HPI. [facility] Medical History Fever Leukocytosis Asthma Social History Household Members: Spouse and Family Housing: Apartment Do you presently have visiting nurse or other home services: No Alcohol intake: never Patient Tobacco Use Status: Never used Tobacco Smoked in Last 30 Days: No e-Cigarette/Vaping Use: Never Used Patient Interested in Nicotine Replacement: No Patient Given Instructions on How to Stop Smoking: No Second Hand Smoke Exposure: No Use of substances other than those prescribed or required for medical reasons: No Have you been hit, kicked, punched, or otherwise hurt by someone within the past year? 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 Meds Allergies Allergy/AdvReac Type Severity Reaction Status Date / Time No Known Allergies Allergy Verified 10/05/24 14:20 Active Medications: Current Medications Acetaminophen (Acetaminophen 325 Mg Tablet) 975 mg PO Q6H PRN PRN Reason: Pain, Mild 1-3,fever,headache Enoxaparin Sodium (Enoxaparin Sodium 40 Mg/0.4 Ml Syringe) 40 mg SUBCUT Q24H GLORIA Sodium Chloride (Ns) 1,000 mls @ 999 mls/hr IV .Q1H1M GLORIA Stop: 10/05/24 20:00 Last Admin: 10/05/24 18:55 Dose: 999 mls/hr Magnesium Sulfate (Magnesium Sulfate/H2o) 2 gm in 50 mls @ 150 mls/hr IV ONCE STA Stop: 10/05/24 19:59 Doxycycline Hyclate 100 mg/ (Sodium Chloride) 250 mls @ 166.67 mls/hr IV Q12H GLORIA Levalbuterol HCl (Levalbuterol Hcl 1.25 Mg/3 Ml Vial.Neb) 1.25 mg INHALE Q4H GLORIA Methylprednisolone Sodium Succinate (Methylprednisolone Sod Succ 40 Mg/Ml Vial) 40 mg IVPUSH Q8H GLORIA Sodium Chloride (0.9 % Sodium Chloride Flush 3 Ml Syringe) 3 ml IVFLUSH QSHIFT [facility] Physical Exam 2 Vital Signs and Narrative: Vital Signs: Last Vital Signs Temp 98.3 F 10/05/24 19:09 Pulse 139 H 10/05/24 19:09 Resp 14 10/05/24 19:09 BP 119/63 10/05/24 19:09 Pulse Ox 94 10/05/24 19:09 O2 Del Method Nasal Cannula 10/05/24 19:09 O2 Flow Rate 2 10/05/24 19:09 BMI result Body Mass Index 34.8 Constitutional - Awake and Alert, acutely ill. Pleasant. Cooperative. Obese. Nasal cannula in place. HEENT - PER, EOMI. Oropharynx: Hyperemic, no exudates. Heart - Tachycardia, regular rhythm. No murmur. Lungs - Normal lung expansion, Normal respiratory effort, No respiratory distress. Tachypnea. Bilateral end expiratory wheezes. Abdomen - NT / ND; +BS; No rebound or guarding Extremities - No edema. Musculoskeletal - Normal inspection, normal ROM Skin - Warm/Dry. No pallor. No jaundice. Neurological - Alert & oriented x3. Moving all extremities spontaneously. Normal speech. Psychological - Appropriate affect Results Labs 10/05/24 14:58 10/05/24 14:55 Labs: Laboratory Results - last 24 hr 10/05/24 10/05/24 10/05/24 14:50 14:55 14:58 MCV 86.1 MCH 29.9 MCHC 34.7 RDW 13.3 Plt Count 246 MPV 10.6 Immature Gran % (Auto) 0.4 Neut % (Auto) 76.3 H Lymph % (Auto) 10.0 L Wallace % (Auto) 9.4 Eos % (Auto) 3.3 Baso % (Auto) 0.6 Lymph # (Auto) 1.8 Wallace # (Auto) 1.7 H Eos # (Auto) 0.6 H Baso # (Auto) 0.1 Abs Immat Gran (auto) 0.08 H Absolute Neuts (auto) 13.8 H Absolute Nucleated RBC 0.000 Nucleated RBC % (auto) 0.0 Smear Tech's Comments VERIFIED VBG pH VBG pCO2 VBG pO2 VBG HCO3 VBG O2 Saturation VBG Base Excess Anion Gap 15 Estim Creat Clear Calc 147.1 Estimated GFR > 60 Random Glucose 130 H Calcium 9.3 Magnesium 2.5 Total Bilirubin 1.2 H AST 42 H ALT 51 H Alkaline Phosphatase 102 Total Protein 7.5 Albumin 4.4 Influenza Type A (PCR) NEGATIVE Influenza Type B (PCR) NEGATIVE RSV RNA Qual (PCR) NEGATIVE SARS-CoV-2 RNA (RT-PCR) NEGATIVE 10/05/24 15:07 MCV MCH MCHC RDW Plt Count MPV Immature Gran % (Auto) Neut % (Auto) Lymph % (Auto) [place] % (Auto) Eos % (Auto) Baso % (Auto) Lymph # (Auto) Wallace # (Auto) Eos # (Auto) Baso # (Auto) Abs Immat Gran (auto) Absolute Neuts (auto) Absolute Nucleated RBC Nucleated RBC % (auto) Smear Tech's Comments VBG pH 7.30 L VBG pCO2 52 VBG pO2 53 VBG HCO3 26 VBG O2 Saturation 74.0 VBG Base Excess -1.0 Anion Gap Estim Creat Clear Calc Estimated GFR Random Glucose Calcium Magnesium Total Bilirubin AST ALT Alkaline Phosphatase Total Protein Albumin Influenza Type A (PCR) Influenza Type B (PCR) RSV RNA Qual (PCR) SARS-CoV-2 RNA (RT-PCR) Assessment and Plan (1) Acute hypoxic respiratory failure: Status: Acute (2) Mixed acid base balance disorder: Status: Acute (3) Lactic acidosis: Status: Acute Plan Dat Stone is a 23 y/o woman admitted with: * Hypoxic respiratory failure secondary to acute asthma exacerbation likely due to acute viral infection. Admit to hospitalist service. Telemetry. Pulse oximetry. Supplemental O2 to keep O2 sats > 90%. Continue bronchodilator therapy with Xopenex (pt is currently quite tachycardic), IV and empiric IV antibiotic therapy with doxycycline (to cover for superimposed bacterial infection). Start treatment with Claritin 10 mg p.o. daily. * Elevated lactic, likely secondary to multiple breathing treatments and/or severe sepsis. Check blood cultures obtained -will follow results. IFVs (total 4 L). Continue empiric IV antibiotic therapy. Continue to monitor lactic acid. * * Sinus tachycardia, multifactorial: Lactic acidosis, hypoxia. Telemetry. * Mixed acid-base disorder. Respiratory alkalosis + metabolic acidosis due to above. Treatment as above. * Hypokalemic, secondary to multiple breathing treatments. Replete as needed. Continue to monitor K+ level. * Obesity, class 1. BMI 34.9 kg/m2. Weight loss. DVT prophylaxis: Lovenox. Code status: Full *med rec pending. Patient will need hospitalization for at least 2 midnights for hypoxic respiratory failure secondary to acute asthma exacerbation treatment with supplemental oxygen, bronchodilator therapy, IV steroids and antibiotics. Quality Stroke Does the patient have a stroke diagnosis?: No VTE Prior VTE?: No VTE Risk Level:: Medical - moderate - high VTE Device Contraindication: N/A - Device Ordered VTE Drug Contraindication: N/A - Med Ordered
[2024-10-05] MEDS: Magnesium Sulfate/H2O 2 GM/50 ML PIGGYBACK IV (20:18)
[2024-10-05 20:47] LABS: B Type Natriuretic Peptide 10 pg/mL (<100)
[2024-10-05 20:48] LABS: Troponin-I High Sensitivity 5.2 ng/L (<3.5-35.0)
[2024-10-05 20:51] LABS: Lactic Acid 7.3 mmol/L (0.5-2.0)
[2024-10-05 20:58] LABS: Cancel Lactic Acid Canceled
[2024-10-05] MEDS: Potassium Chloride Packet 20 MEQ PACKET 40 MEQ PO (21:22)
[2024-10-05] MEDS: Doxycycline Hyclate 100 MG in 0.9 % Sodium Chloride 250 ML 166.67 MG IV (21:23)
[2024-10-05] MEDS: levalbuterol HCL 1.25 MG/3 ML VIAL.NEB INHALE (22:06)
[2024-10-05] MEDS: methylPREDNISolone Sod Succ 40 MG/ML VIAL IVPUSH (22:06)
[2024-10-05 22:24] LABS: ABG Base Excess -8.1 mmol/L; ABG HCO3 16 mmol/L (22-26); ABG pCO2 29 mmHg (32-45); ABG pH 7.34 (7.35-7.45); ABG pO2 80 mmHg (83-108)
[2024-10-05] MEDS: guaiFENesin 200 MG/10 ML 10 ML LIQUID PO (22:45)
[2024-10-05] MEDS: Loratadine 10 MG TABLET PO (22:49)
[2024-10-05 23:07] LABS: ABG Refer to POC result
[2024-10-06] VITALS (16 sets, daily range): BP systolic 120–140; BP diastolic 55–78; PULSE 96–131; RESP 16–20; TEMP 36.4–37.4; O2SAT 2–96
[2024-10-06 01:34] LABS: Potassium 4.4 mmol/L (3.3-5.1)
[2024-10-06 03:14] LABS: Reflex Lactate? Lactic Acid Added
[2024-10-06] MEDS: levalbuterol HCL 1.25 MG/3 ML VIAL.NEB INHALE ×4 (03:22→15:54)
[2024-10-06] MEDS: 0.9 % Sodium Chloride Flush 3 ML SYRINGE IVFLUSH ×4 (03:50→21:32)
[2024-10-06 04:02] LABS: ~Lactic Acid-LAB USE ONLY 2.2 mmol/L (0.5-2.0)
[2024-10-06 04:04] LABS: Cancel Lactic Acid Canceled
[2024-10-06 06:18] LABS: Venous Blood Gas Refer to POC result
[2024-10-06 06:23] LABS: VBG Base Excess -1.5 mmol/L; VBG HCO3 23 mmol/L (22-26); VBG pCO2 40 mmHg; VBG pH 7.37 (7.32-7.43); VBG pO2 75 mmHg
[2024-10-06] MEDS: Doxycycline Hyclate 100 MG in 0.9 % Sodium Chloride 250 ML 166.67 MG IV ×2 (06:28→21:00)
[2024-10-06] MEDS: methylPREDNISolone Sod Succ 40 MG/ML VIAL IVPUSH ×3 (06:28→21:31)
[2024-10-06 06:34] LABS: Lactic Acid 1.5 mmol/L (0.5-2.0)
[2024-10-06 06:50] LABS: Anion Gap 12 (12-20); Blood Urea Nitrogen 10 mg/dL (9-16); Calcium 9.1 mg/dL (8.4-10.2); Carbon Dioxide 23 mmol/L (22-29); Chloride 109 mmol/L (96-108); Creatinine Clr Calc Pharmacy 172.5; Estimated Glomerular Filt Rate > 60; Glucose Random 136 mg/dL (60-115); Potassium 4.5 mmol/L (3.3-5.1); Sodium 139 mmol/L (135-145)
[2024-10-06 07:03] LABS: Hematocrit 41.9 % (42.0-52.0); Hemoglobin 14.2 g/dl (14.0-18.0); Mean Corpuscular HGB Conc 33.9 g/dl (31.0-36.0); Mean Corpuscular Hemoglobin 29.8 pg (27.0-33.0); Mean Platelet Volume 10.8 fL (9.4-12.4); Platelet Count 240 X10*3/uL (160-400); Red Blood Count 4.76 X10*6/uL (4.60-5.80); Red Cell Distribution Width 13.7 % (11.0-16.0); White Blood Count 16.6 X10*3/uL (4.8-10.8)
[2024-10-06] MEDS: Enoxaparin Sodium 40 MG/0.4 ML SYRINGE SUBCUT (08:21)
[2024-10-06] MEDS: guaiFENesin 200 MG/10 ML 10 ML LIQUID PO (08:21)
[2024-10-06] MEDS: Loratadine 10 MG TABLET PO (08:21)
--- NOTE | 2024-10-06 08:27 | PHA.MEDREC ---
Pharmacy Consult ? Medication Reconciliation Pharmacy has completed the medication reconciliation.
[2024-10-06 09:20] LABS: Troponin-I High Sensitivity 5.3 ng/L (<3.5-35.0)
--- NOTE | 2024-10-06 09:52 | MHC.CM.PN ---
EMR REVIEWED, PT W/ACUTE ASTHMA EXAC, CM MET W/PT WHO REPORTS HE LIVES W/PARENTS, IS FULLY INDEP W/ALL CARE, HAS DAILY/PRN INHALERS AND NEBULIZER FOR DME, NO HOME SERVICES, GOAL FOR DC IS HOME ONCE MEDICALLY CLEAR. PT VERIFIES PCP IS [facility] AND HAS BEEN EDUCATED ON AND DECLINES TO COMPLETE A HCP THIS ADMISSION.
--- NOTE | 2024-10-06 12:43 | HO.PM.IMPN ---
Subjective Subjective Date of Service: 10/06/24 Interval History: f/u asthma exacerbat ion doing better, has been titrated off O2 Physical Exam Vital Signs: Vital Signs: Last Vital Signs Temp 99.4 F 10/06/24 12:00 Pulse 110 H 10/06/24 12:00 Resp 18 10/06/24 12:00 BP 120/58 L 10/06/24 12:00 Pulse Ox 92 10/06/24 12:00 O2 Del Method Room Air 10/06/24 12:00 O2 Flow Rate 1 10/06/24 10:22 BMI result Body Mass Index 35.4 General: AO X 3, no acute distress Resp: CTA bilateral CVS: S1,S2,RRR GI: +BS, NT, no distention Skin: No rash Neuro: motor grossly intact Psych: appropriate affect Const: Other: General: AO X 3, no acute distress Resp: CTA bilateral CVS: S1,S2,RRR GI: +BS, NT, no distention Skin: No rash Neuro: motor grossly intact Psych: appropriate affect Objective Data Active Medications Acetaminophen (Acetaminophen 325 Mg Tablet) 975 mg PO Q6H PRN PRN Reason: Pain, Mild 1-3,fever,headache Enoxaparin Sodium (Enoxaparin Sodium 40 Mg/0.4 Ml Syringe) 40 mg SUBCUT Q24H [facility] Last Admin: 10/06/24 08:21 Dose: 40 mg Documented By: SAMUEL Guaifenesin (Guaifenesin 200 Mg/10 Ml 10 Ml Liquid) 10 ml PO Q4H PRN PRN Reason: Cough Last Admin: 10/06/24 08:21 Dose: 10 ml Documented By: SAMUEL Doxycycline Hyclate 100 mg/ (Sodium Chloride) 250 mls @ 166.67 mls/hr IV Q12H [facility] Last Infusion: 10/06/24 08:19 Dose: Infused Documented By: SAMUEL Levalbuterol HCl (Levalbuterol Hcl 1.25 Mg/3 Ml Vial.Neb) 1.25 mg INHALE RQ4H [facility] Last Admin: 10/06/24 11:09 Dose: 1.25 mg Documented By: RONIT Loratadine (Loratadine 10 Mg Tablet) 10 mg PO DAILY [facility] Last Admin: 10/06/24 08:21 Dose: 10 mg Documented By: SAMUEL Methylprednisolone Sodium Succinate (Methylprednisolone Sod Succ 40 Mg/Ml Vial) 40 mg IVPUSH Q8H [facility] Last Admin: 10/06/24 06:28 Dose: 40 mg Documented By: CARLITA Sodium Chloride (0.9 % Sodium Chloride Flush 3 Ml Syringe) 3 ml IVFLUSH QSHIFT [facility] Last Admin: 10/06/24 08:22 Dose: 3 ml Documented By: SAMUEL Labs 10/06/24 06:05 10/06/24 06:05 Labs: Laboratory Results - last 24 hr 10/05/24 10/05/24 10/05/24 14:50 14:55 14:58 MCV 86.1 MCH 29.9 MCHC 34.7 RDW 13.3 Plt Count 246 MPV 10.6 Immature Gran % (Auto) 0.4 Neut % (Auto) 76.3 H Lymph % (Auto) 10.0 L [place] % (Auto) 9.4 Eos % (Auto) 3.3 Baso % (Auto) 0.6 Lymph # (Auto) 1.8 [place] # (Auto) 1.7 H Eos # (Auto) 0.6 H Baso # (Auto) 0.1 Abs Immat Gran (auto) 0.08 H Absolute Neuts (auto) 13.8 H Absolute Nucleated RBC 0.000 Nucleated RBC % (auto) 0.0 Smear Tech's Comments VERIFIED O2 Saturation ABG pH at Pt Temp ABG pCO2 at Pt Temp ABG pO2 at Pt Temp ABG HCO3 ABG Base Excess (Actual) VBG pH VBG pCO2 VBG pO2 VBG HCO3 VBG O2 Saturation VBG Base Excess Anion Gap 15 Estim Creat Clear Calc 147.1 Estimated GFR > 60 Random Glucose 130 H Lactic Acid Lactic Acid F/U @ 2Hr Calcium 9.3 Magnesium 2.5 Total Bilirubin 1.2 H AST 42 H ALT 51 H Alkaline Phosphatase 102 Troponin I High Sens B-Natriuretic Peptide Total Protein 7.5 Albumin 4.4 Influenza Type A (PCR) NEGATIVE Influenza Type B (PCR) NEGATIVE RSV RNA Qual (PCR) NEGATIVE SARS-CoV-2 RNA (RT-PCR) NEGATIVE 10/05/24 10/05/24 10/05/24 15:07 20:17 20:30 MCV MCH MCHC RDW Plt Count MPV Immature Gran % (Auto) Neut % (Auto) Lymph % (Auto) [place] % (Auto) Eos % (Auto) Baso % (Auto) Lymph # (Auto) [place] # (Auto) Eos # (Auto) Baso # (Auto) Abs Immat Gran (auto) Absolute Neuts (auto) Absolute Nucleated RBC Nucleated RBC % (auto) Smear Tech's Comments O2 Saturation 95.0 ABG pH at Pt Temp 7.34 L ABG pCO2 at Pt Temp 29 L ABG pO2 at Pt Temp 80 L ABG HCO3 16 L ABG Base Excess (Actual) -8.1 VBG pH 7.30 L VBG pCO2 52 VBG pO2 53 VBG HCO3 26 VBG O2 Saturation 74.0 VBG Base Excess -1.0 Anion Gap Estim Creat Clear Calc Estimated GFR Random Glucose Lactic Acid 7.3 H* Lactic Acid F/U @ 2Hr Calcium Magnesium Total Bilirubin AST ALT Alkaline Phosphatase Troponin I High Sens 5.2 B-Natriuretic Peptide 10 Total Protein Albumin Influenza Type A (PCR) Influenza Type B (PCR) RSV RNA Qual (PCR) SARS-CoV-2 RNA (RT-PCR) 10/06/24 10/06/24 10/06/24 01:05 03:35 06:05 MCV 88.0 MCH 29.8 MCHC 33.9 RDW 13.7 Plt Count 240 MPV 10.8 Immature Gran % (Auto) Neut % (Auto) Lymph % (Auto) [place] % (Auto) Eos % (Auto) Baso % (Auto) Lymph # (Auto) [place] # (Auto) Eos # (Auto) Baso # (Auto) Abs Immat Gran (auto) Absolute Neuts (auto) Absolute Nucleated RBC 0.000 Nucleated RBC % (auto) 0.0 Smear Tech's Comments O2 Saturation ABG pH at Pt Temp ABG pCO2 at Pt Temp ABG pO2 at Pt Temp ABG HCO3 ABG Base Excess (Actual) VBG pH VBG pCO2 VBG pO2 VBG HCO3 VBG O2 Saturation VBG Base Excess Anion Gap 12 Estim Creat Clear Calc 172.5 Estimated GFR > 60 Random Glucose 136 H Lactic Acid 4.0 H* 1.5 Lactic Acid F/U @ 2Hr 2.2 H* Calcium 9.1 Magnesium Total Bilirubin AST ALT Alkaline Phosphatase Troponin I High Sens B-Natriuretic Peptide Total Protein Albumin Influenza Type A (PCR) Influenza Type B (PCR) RSV RNA Qual (PCR) SARS-CoV-2 RNA (RT-PCR) 10/06/24 10/06/24 06:17 08:20 MCV MCH MCHC RDW Plt Count MPV Immature Gran % (Auto) Neut % (Auto) Lymph % (Auto) [place] % (Auto) Eos % (Auto) Baso % (Auto) Lymph # (Auto) [place] # (Auto) Eos # (Auto) Baso # (Auto) Abs Immat Gran (auto) Absolute Neuts (auto) Absolute Nucleated RBC Nucleated RBC % (auto) Smear Tech's Comments O2 Saturation ABG pH at Pt Temp ABG pCO2 at Pt Temp ABG pO2 at Pt Temp ABG HCO3 ABG Base Excess (Actual) VBG pH 7.37 VBG pCO2 40 VBG pO2 75 VBG HCO3 23 VBG O2 Saturation 93.0 VBG Base Excess -1.5 Anion Gap Estim Creat Clear Calc Estimated GFR Random Glucose Lactic Acid Lactic Acid F/U @ 2Hr Calcium Magnesium Total Bilirubin AST ALT Alkaline Phosphatase Troponin I High Sens 5.3 B-Natriuretic Peptide Total Protein Albumin Influenza Type A (PCR) Influenza Type B (PCR) RSV RNA Qual (PCR) SARS-CoV-2 RNA (RT-PCR) Assessment and Plan (1) Asthma: Status: Acute Plan / with asthma admitted with for acute exacerbation of asthma ..... Hypoxic respiratory failure secondary to acute asthma exacerbation likely due to acute viral infection. continue IV solumedrol bronchodilators (xopenex) d/t tachcyardia empiric doxycyline Acute lactic d/t bronchodilators, not sepsis Sinus tachycardia, multifactorial, d/t above, Mixed acid-base disorder. Respiratory alkalosis + metabolic acidosis due to above. Treatment as above. Hypokalemic, resolved. Obesity, class 1. BMI 34.9 kg/m2. Weight loss. DVT prophylaxis: Lovenox. Code status: Full Patient will need hospitalization for at least 2 midnights for hypoxic respiratory failure secondary to acute asthma exacerbation treatment with supplemental oxygen, bronchodilator therapy, IV steroids and antibiotics. Quality Stroke Does the patient have a stroke diagnosis?: No VTE Prior VTE?: No VTE Risk Level:: Medical - moderate - high VTE Device Contraindication: N/A - Device Ordered VTE Drug Contraindication: N/A - Med Ordered
[2024-10-06] MEDS: Fluticasone/Vilanterol 200/25 BLST.W.DEV 1 PUFF INHALE (15:54)
[2024-10-07 03:37] VITALS: BP 134/73; PULSE 80; RESP 16; TEMP 36.4; O2SAT 98
[2024-10-07] MEDS: methylPREDNISolone Sod Succ 40 MG/ML VIAL IVPUSH (05:52)
[2024-10-07] MEDS: Loratadine 10 MG TABLET PO (07:17)
[2024-10-07] MEDS: Doxycycline Hyclate 100 MG in 0.9 % Sodium Chloride 250 ML 166.67 MG IV (07:17)
[2024-10-07] MEDS: guaiFENesin 200 MG/10 ML 10 ML LIQUID PO (07:17)
[2024-10-07] MEDS: Enoxaparin Sodium 40 MG/0.4 ML SYRINGE SUBCUT (07:17)
[2024-10-07] MEDS: 0.9 % Sodium Chloride Flush 3 ML SYRINGE IVFLUSH (07:18)
[2024-10-07] MEDS: Fluticasone/Vilanterol 200/25 BLST.W.DEV 1 PUFF INHALE (07:36)
[2024-10-07 07:37] VITALS: BP 119/75; PULSE 62; RESP 16; TEMP 36.3; O2SAT 98
[2024-10-07 07:39] VITALS: PULSE 58; RESP 16; O2SAT 98
[2024-10-07] MEDS: levalbuterol HCL 1.25 MG/3 ML VIAL.NEB INHALE (07:41)
--- NOTE | 2024-10-07 10:10 | PM.DS ---
DS: Providers Provider Date of Service: 10/07/24 Date of admission: 10/05/24 18:57 Date of discharge: 10/07/24 Primary care physician: Darya Saunders NP DS: Diagnosis Discharge Diagnosis (1) Acute hypoxic respiratory failure: Status: Acute (2) Mixed acid base balance disorder: Status: Acute (3) Lactic acidosis: Status: Acute DS: Summary Hospital Course Hospital Course: admission hpi Chief Complaint: Shortness of breath Dat Stone is a 23 years old man with past medical history significant for asthma and obesity presents to the emergency department complaining of worsening shortness on breath over the last 2 days associated with dry cough and wheezing. He also reported some chest tightness, nasal congestion or sore throat. He denied headache, fever or chills. He mentioned that he has been having flu-like symptoms (his girlfriend had the same symptoms). He used his rescue inhaler without significant improvement of symptoms. He did not report any acute gastrointestinal or genitourinary symptoms. Denies tobacco smoking, marijuana smoking, alcohol abuse or illicit drug use. He has no history of intubation. In the ED, he was found to have marked tachycardia 140-150 bpm, , tachypnea and O2 sats of 88% on room air. Blood workup was remarkable for leukocytosis of 18.1. Hemoglobin is 16.1 and platelets. Lactic acid is mildly elevated at 7.3. Venous blood gas a pH of 7.3 and pCO2 52; are normal. There is mild hypokalemia of 3.1 but no other electrolyte imbalances. Troponin and BNP are normal. Renal function is normal. CXR showed no acute process. ECG showed sinus tachycardia, HR 157 bpm (artifiact). ED tx: DuoNeb X 4 (5, 5, 5, 7,5), Solu-Medrol 60 mg IV, magnesium IV. hospital course: patient was admitted for assumptionament acute hypoxic respiratory failure due to asthma exacerbation and treated with IV steroid, bronchodilators by ar Craven for possible bronchitis and has made a more rapid than expected recovery, he is now breathing comfortably, no need for oxygen, initial tachycardia of 140 to 150s's has improved, HR is nw 58, O2 sat 98% on room air. He will be transitioned to oral prednisone for 5 days, along with xopenex MDI and doxycyline for 5 days total . Acute lactic acidosis related to asthma exacerbation has resolved. He feels comfortable with discharge plan Time Attestation Discharge Coordination Time (in mins): 35 Quality: Safe Use of Opioids Does Pt have an Active Cancer Diagnosis on the Problem List?: No Quality: Stroke Does the patient have a stroke diagnosis?: No Physical Exam Vital Signs: Vital Signs: Selected Entries 10/07/24 07:37 10/07/24 07:39 Pulse Rate 58 Respiratory Rate 16 Blood Pressure 119/75 Pulse Oximetry 98 Oxygen Delivery Me thod Room Air Const: Other: General: AO X 3, no acute distress Resp: CTA bilateral CVS: S1,S2,RRR GI: +BS, NT, no distention Skin: No rash Neuro: motor grossly intact Psych: appropriate affect DS: Data Data Completed and Pending Labs on day of discharge: Laboratory Results - last 24 hr 10/05/24 10/05/24 10/05/24 14:50 14:55 14:58 WBC 18.1 H RBC 5.39 Hgb 16.1 Hct 46.4 MCV 86.1 MCH 29.9 MCHC 34.7 RDW 13.3 Plt Count 246 MPV 10.6 Immature Gran % (Auto) 0.4 Neut % (Auto) 76.3 H Lymph % (Auto) 10.0 L [place] % (Auto) 9.4 Eos % (Auto) 3.3 Baso % (Auto) 0.6 Lymph # (Auto) 1.8 [place] # (Auto) 1.7 H Eos # (Auto) 0.6 H Baso # (Auto) 0.1 Abs Immat Gran (auto) 0.08 H Absolute Neuts (auto) 13.8 H Absolute Nucleated RBC 0.000 Nucleated RBC % (auto) 0.0 Smear Tech's Comments VERIFIED O2 Saturation ABG pH at Pt Temp ABG pCO2 at Pt Temp ABG pO2 at Pt Temp ABG HCO3 ABG Base Excess (Actual) VBG pH VBG pCO2 VBG pO2 VBG HCO3 VBG O2 Saturation VBG Base Excess Sodium 143 Potassium 3.1 L Chloride 107 Carbon Dioxide 24 Anion Gap 15 BUN 14 Creatinine 1.01 Estim Creat Clear Calc 147.1 Estimated GFR > 60 Random Glucose 130 H Lactic Acid Lactic Acid F/U @ 2Hr Calcium 9.3 Magnesium 2.5 Total Bilirubin 1.2 H AST 42 H ALT 51 H Alkaline Phosphatase 102 Troponin I High Sens B-Natriuretic Peptide Total Protein 7.5 Albumin 4.4 Influenza Type A (PCR) NEGATIVE Influenza Type B (PCR) NEGATIVE RSV RNA Qual (PCR) NEGATIVE SARS-CoV-2 RNA (RT-PCR) NEGATIVE 10/05/24 10/05/24 10/05/24 15:07 20:17 20:30 WBC RBC Hgb Hct MCV MCH MCHC RDW Plt Count MPV Immature Gran % (Auto) Neut % (Auto) Lymph % (Auto) [place] % (Auto) Eos % (Auto) Baso % (Auto) Lymph # (Auto) [place] # (Auto) Eos # (Auto) Baso # (Auto) Abs Immat Gran (auto) Absolute Neuts (auto) Absolute Nucleated RBC Nucleated RBC % (auto) Smear Tech's Comments O2 Saturation 95.0 ABG pH at Pt Temp 7.34 L ABG pCO2 at Pt Temp 29 L ABG pO2 at Pt Temp 80 L ABG HCO3 16 L ABG Base Excess (Actual) -8.1 VBG pH 7.30 L VBG pCO2 52 VBG pO2 53 VBG HCO3 26 VBG O2 Saturation 74.0 VBG Base Excess -1.0 Sodium Potassium Chloride Carbon Dioxide Anion Gap BUN Creatinine Estim Creat Clear Calc Estimated GFR Random Glucose Lactic Acid 7.3 H* Lactic Acid F/U @ 2Hr Calcium Magnesium Total Bilirubin AST ALT Alkaline Phosphatase Troponin I High Sens 5.2 B-Natriuretic Peptide 10 Total Protein Albumin Influenza Type A (PCR) Influenza Type B (PCR) RSV RNA Qual (PCR) SARS-CoV-2 RNA (RT-PCR) 10/06/24 10/06/24 10/06/24 01:05 03:35 06:05 WBC 16.6 H RBC 4.76 Hgb 14.2 Hct 41.9 L MCV 88.0 MCH 29.8 MCHC 33.9 RDW 13.7 Plt Count 240 MPV 10.8 Immature Gran % (Auto) Neut % (Auto) Lymph % (Auto) [place] % (Auto) Eos % (Auto) Baso % (Auto) Lymph # (Auto) [place] # (Auto) Eos # (Auto) Baso # (Auto) Abs Immat Gran (auto) Absolute Neuts (auto) Absolute Nucleated RBC 0.000 Nucleated RBC % (auto) 0.0 Smear Tech's Comments O2 Saturation ABG pH at Pt Temp ABG pCO2 at Pt Temp ABG pO2 at Pt Temp ABG HCO3 ABG Base Excess (Actual) VBG pH VBG pCO2 VBG pO2 VBG HCO3 VBG O2 Saturation VBG Base Excess Sodium 139 Potassium 4.4 D 4.5 Chloride 109 H Carbon Dioxide 23 Anion Gap 12 BUN 10 Creatinine 0.87 Estim Creat Clear Calc 172.5 Estimated GFR > 60 Random Glucose 136 H Lactic Acid 4.0 H* 1.5 Lactic Acid F/U @ 2Hr 2.2 H* Calcium 9.1 Magnesium Total Bilirubin AST ALT Alkaline Phosphatase Troponin I High Sens B-Natriuretic Peptide Total Protein Albumin Influenza Type A (PCR) Influenza Type B (PCR) RSV RNA Qual (PCR) SARS-CoV-2 RNA (RT-PCR) 10/06/24 10/06/24 06:17 08:20 WBC RBC Hgb Hct MCV MCH MCHC RDW Plt Count MPV Immature Gran % (Auto) Neut % (Auto) Lymph % (Auto) [place] % (Auto) Eos % (Auto) Baso % (Auto) Lymph # (Auto) [place] # (Auto) Eos # (Auto) Baso # (Auto) Abs Immat Gran (auto) Absolute Neuts (auto) Absolute Nucleated RBC Nucleated RBC % (auto) Smear Tech's Comments O2 Saturation ABG pH at Pt Temp ABG pCO2 at Pt Temp ABG pO2 at Pt Temp ABG HCO3 ABG Base Excess (Actual) VBG pH 7.37 VBG pCO2 40 VBG pO2 75 VBG HCO3 23 VBG O2 Saturation 93.0 VBG Base Excess -1.5 Sodium Potassium Chloride Carbon Dioxide Anion Gap BUN Creatinine Estim Creat Clear Calc Estimated GFR Random Glucose Lactic Acid Lactic Acid F/U @ 2Hr Calcium Magnesium Total Bilirubin AST ALT Alkaline Phosphatase Troponin I High Sens 5.3 B-Natriuretic Peptide Total Protein Albumin Influenza Type A (PCR) Influenza Type B (PCR) RSV RNA Qual (PCR) SARS-CoV-2 RNA (RT-PCR) Discharge Plan Discharge Anticipated Discharge Date/Time: 10/07/24 10:08 Patient Disposition: Home, Self-Care Discharge Diagnosis: Acute hypoxic respiratory failure, asthma exacerbation, lactic acidosis Referrals: Darya Saunders, IMMIGRATION CONSULTANT [Primary Care Provider] - 1 Week Discharge Medications: New prednisone 20 mg tablet 20 mg PO DAILY Qty: 6 0RF doxycycline monohydrate 100 mg capsule 100 mg PO BID Qty: 6 0RF Continued budesonide-formoterol [Symbicort] 160-4.5 mcg/actuation HFA aerosol inhaler 2 puff inhalation Q12H Qty: 10.2 3RF albuterol sulfate 2.5 mg /3 mL (0.083 %) solution for nebulization 2.5 mg inhalation QID PRN (Reason: shortness of breath or wheezing) Qty: 180 0RF albuterol sulfate 90 mcg/actuation HFA aerosol inhaler 1 inh inhalation QID PRN (Reason: shortness of breath or wheezing) Qty: 6.7 0RF fexofenadine 180 mg tablet 180 mg PO DAILY PRN (Reason: allergies) Discharge Orders: Discharge Order (Routine); Ordered 10/07/24 Ordered By: Jamaal Vences Diet: Advance to usual diet Activity on Discharge: As tolerated Stand Alone Forms: Patient Portal Discharge page Print Language: Turkmen Care Plan Goals: recvory from asthma exacerbation, acute hypoxic respiratory failre, Health Concerns: asthma exacerbation ' acute hypoxia lactic acidosis Plan of Treatment: take doxycyline for bronchitis take Prednisone and inhalers as directed, follow up with your doctor in a week, call for appointment Assessment: see above
--- NOTE | 2024-10-07 10:23 | MHC.CM.PN ---
PT MEDICALLY CLEARED FOR DC HOME SELF CARE, PT WILL ARRANGE TRANSPORT
--- NOTE | 2024-10-08 18:26 | P.CDIM_ITS ---
PROVIDER RESPONSE TEXT: To clarify, the appropriate diagnosis supported by the clinical indicators: Moderate persistent QUERY TEXT: PHYSICIAN'S DOCUMENTATION REQUEST Date of Query: 10/06/2024 11:16 AM EDT Patient Name: Dat Stone Admit Date: 10/05/2024 Dear Jamaal Vences MD, A review of the medical record indicates additional documentation may be needed. Please review below and update the documentation accordingly. Clinical indicators: H&P 10/05/24 - Acute hypoxic respiratory failure due to Asthma Exacerbation. IV Steroid, Bronchodilators by ar Craven. Breathing comfortably, he will be transitioned to oral prednisone for 5 days. Based on the above, please clarify in the Progress Notes further specificity regarding the type of th e asthma: Mild intermittent Mild persistent Moderate persistent Severe persistent Exercise induced Other (explain) Clinically unable to determine (explain) Thank you, Hetal Avendano, CCS, CDIS Use of terms such as suspected, likely, concern for, or probable (associated with a specific diagnosi s that is being evaluated, monitored, or treated as if it exists) are acceptable and can be coded in the inpatient se tting, when documented at the time of discharge. Please use your independent medical judgment in providing your response. THIS QUERY IS PART OF THE PERMANENT MEDICAL RECORD
== END 2024-10-07 10:50 | disposition home or self-care (01) | DRG 190 ==
LOC: HO.ED 19:11 → HO.EDOVER 19:18 → HO.IMC 19:48
PROVIDERS: Physician Assistant Medical; Admitting Provider Internal Medicine; Emergency Provider Emergency Medicine; PCP Nurse Practitioner Primary Care; Visit Provider Internal Medicine
DX: J44.1 Chronic obstructive pulmonary disease with (acute) exacerbation (principal); J96.01 Acute respiratory failure with hypoxia; E44.0 Moderate protein-calorie malnutrition; Z68.1 Body mass index [BMI] 19.9 or less, adult; E87.4 Mixed disorder of acid-base balance; J45.41 Moderate persistent asthma with (acute) exacerbation; B97.89 Other viral agents as the cause of diseases classified elsewhere; E87.6 Hypokalemia; E66.811 Obesity, class 1; Z71.3 Dietary counseling and surveillance; Z68.35 Body mass index [BMI] 35.0-35.9, adult; Z20.822 Contact with and (suspected) exposure to COVID-19; Z79.899 Other long term (current) drug therapy
CPT/HCPCS: 0241U; 36415; 36600; 71045; 80048; 80053; 82803; 83605; 83735; 83880; 84132; 84484; 85025; 85027; 87040; 93005; 94640; 99285; J1271; J1650; J2919; J3475

== ENCOUNTER → 2024-10-05 14:20 | Outpatient (BNV) | payer OTHER, MEDICAID, SELFPAY | PROVIDERS: Admitting Provider Internal Medicine; Emergency Provider Emergency Medicine; PCP Nurse Practitioner Primary Care; Visit Provider Internal Medicine | DX: R00.0 Tachycardia, unspecified (principal) | CPT/HCPCS: 93010 ==

== ENCOUNTER → 2024-10-05 15:38 | Outpatient (BNV) | payer OTHER, SELFPAY | PROVIDERS: Emergency Provider Emergency Medicine; PCP Nurse Practitioner Primary Care; Visit Provider Radiology Vascular & Interventional Radiology | DX: R06.00 Dyspnea, unspecified (principal) | CPT/HCPCS: 71045 ==

== ENCOUNTER → 2024-10-05 18:57 | Outpatient (BNV) | payer OTHER, SELFPAY | PROVIDERS: Admitting Provider Internal Medicine; Emergency Provider Emergency Medicine; PCP Nurse Practitioner Primary Care; Visit Provider Internal Medicine | DX: J96.01 Acute respiratory failure with hypoxia (principal); E87.4 Mixed disorder of acid-base balance; E87.20 Acidosis, unspecified | CPT/HCPCS: 99223; 99232; 99239 ==

== ENCOUNTER 2024-12-08 08:54 | Outpatient (AMB) | payer OTHER, MEDICAID, SELFPAY ==
--- NOTE | 2024-12-08 09:07 | MHC.OFFVIS ---
Vital Signs 12/08/24 09:08 Height 6 ft Weight 259 lb 0.69 oz BMI 35.1 BP 116/71 Blood Pressure Location Lt brachial Position Sitting Respiration 18 Pulse 94 Pulse Source Pulse Oximeter Pulse Oximetry (%) 95 Oxygen Delivery Method Room Air Intake Visit Reasons: Asthma Telecommunications Support Required: No Allergies No Known Allergies Allergy (Verified 12/08/24 09:07) HPI HPI Asthma: Details: Dat is a pleasant 23-year-old male, never smoker with underlying asthma since childhood. Since the last visit he was admitted 10/05-10/07 to [facility] for acute respiratory failure secondary to asthma exacerbation. He was treated with IV steroids, bronchodilators, and doxycycline for possible bronchitis, initially hypoxic 88% however recovered to room air satting 98%. CXR and respiratory panel unremarkable. He was discharged on oral prednisone for 5 days, along with xopenex MDI and doxycyline for 5 days total. He reports significant improvements since discharge. He continues to report suboptimal effect with Symbicort, noting dry cough, dyspnea on exertion and intermittent wheezing. 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 Review of Systems Const Denies chills, Denies excessive sweating, Denies fever(s), Denies headache(s) and Denies night sweats Eyes Denies dry eyes, Denies irritation and Denies itchy eyes ENT Reports Normal hearing present, Denies headache(s), Denies nasal congestion, Denies nasal discharge, Denies post nasal drip and Denies sore throat Card Denies chest pain, Denies chest pain at rest, Denies chest pain with activity, Denies claudication, Denies leg edema, Denies dyspnea, Denies orthopnea and Denies paroxysmal nocturnal dyspnea Resp Denies chest congestion, Denies excessive phlegm production, Denies pain on inspiration, Denies pain with cough, Denies dyspnea and Denies stridor Musc Denies myalgias Neuro Reports Normal hearing present and Denies headache(s) Endo Denies excessive sweating Mariusz/Lymph Denies lymphadenopathy Aller/Immun Denies itchy eyes and Denies seasonal rhinorrhea Physical Exam Vital Signs: Last Vital Signs Pulse 94 12/08/24 09:08 Resp 18 12/08/24 09:08 BP 116/71 12/08/24 09:08 Pulse Ox 95 12/08/24 09:08 Oxygen Delivery Method Room Air 12/08/24 09:08 BMI result Body Mass Index 35.1 Const General: cooperative, healthy appearing, comfortable, no acute distress, well developed and alert Nutritional Appearance: obese Orientation/consciousness: patient oriented x3 Limitations: no limitations HEENT Head: Yes normal to inspection, Yes normocephalic and Yes atraumatic Ears: hearing grossly normal bilaterally and external ears normal Eyes General: appearance normal, both eyes and all related structures Eyelids: Yes eyelids normal Sclerae: sclerae normal EOM: EOMs intact bilaterally Neck Neck: Yes normal visual inspection and Yes no lymphadenopathy Lymphatic: no lymphadenopathy noted Chest Chest palpation & inspection: normal inspection of the chest Resp Effort & Inspection: normal respiratory effort, able to speak in complete sentences, no audible wheezes, no cough, no stridor, not tachypneic, no tripod positioning and no use of accessory muscles Auscultation: diminished lung sounds Cardio Jugular venous distension: no JVD Rate: regular rate Rhythm: regular rhythm Skin Other: warm, dry General skin exam: no rashes or lesions noted Neuro General: patient oriented x3 Cranial nerves: Yes Normal hearing present Cognition (Neuro): normal cognition Gait exam (Neuro): Normal gait present Extrem General: Yes normal to inspection, Yes capillary refill normal, Yes no clubbing, cyanosis or edema and Yes no pedal edema Psych Appearance: grossly normal and well kempt Speech and movement: Normal speech and movement present and Clear speech present Affect: normal affect Attitude: cooperative Thought process: Normal thought process present Thought content: Normal thought content present Insight: Good insight present (Psych) Judgement: Good judgement present (Psych) Assessment & Plan Assessment & Plan (1) Asthma: Code(s): J45.909 - Unspecified asthma, uncomplicated Category: Medical Qualifiers: Asthma complication type: unspecified Asthma persistence: unspecified Asthma severity: unspecified severity Qualified Code(s): J45.909 - Unspecified asthma, uncomplicated (2) Environmental and seasonal allergies: Code(s): J30.89 - Other allergic rhinitis Category: Medical Plan Dat reports suboptimal control with Symbicort, using albuterol MDI frequently. Will switch to Trelegy and advised to continue daily antihistamine, consider Singulair vs biologic in the future. He is aware to call if symptoms worsen. All questions were answered and patient is in agreement of plan. Will follow up in 6-8 weeks or sooner if needed. Medications: New [id number] 200-62.5-25 mcg (Trelegy Ellipta) 1 inh inhalation DAILY 60 ea 3RF Coding Level of Care Code Est Pt Level 4 (42810) Diagnoses Asthma J45.909 Asthma complication type: unspecified Asthma persistence: unspecified Asthma severity: unspecified severity Environmental and seasonal allergies J30.89
[2024-12-08 09:08] VITALS: BP 116/71; PULSE 94; RESP 18; O2SAT 95; BMI 35.1
--- OUTSIDE RECORDS SUMMARY | 2024-12-08 09:14 | XMS_ITS | Encounter Summary ---
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 Name Role Phone Darya Saunders Primary Care Provider [phone] Reason for Visit * Reason Comments Med Refill Encounter Details Date Type Department Care Team (Late st Contact Info) Description 06/14/2023 Refill [facility] [address] [place] [address] Darya Saunders ANP [address] [place] [address] Mild persistent asthma without complication Social History Tobacco Use Types Packs/Day Years Used Date Smoking Tobacco: Never Smokeless Tobacco: Never Alcohol Use Standard Drinks/Week Comments Never 0 (1 standard drink = 0.6 oz pur e alcohol) Depression Answer Date Recorded Patient Health Questionnaire-9 Score 0 01/26/2023 Housing Stability Answer Date Recorded What is your housing situation today? I have sabinosimi major 02/20/[address] you [...] as of this encounter Plan of Treatment Upcoming Encounters Date Type Department Care Team (Late st Contact Info) Description 12/16/2024 9:30 AM EDT Office Visit [facility] [address] [place] [address] Darya Saunders ANP [address] [place] [address] documented as of this encounter Visit Diagnoses Diagnosis Mild persistent asthma without complication documented in this encounter Additional Health Concerns Assessment Noted Time PHQ-9 Depression Total Score: 0 01/27/20 23 1:58 PM EDT documented as of this encounter Care Teams Candy Rolling Machine Operator Relationship Specialty Start Date End Date Darya Saunders ANP [address] [place] [address] PCP - General Family Medicine 01/04/22 documented as of this encounter
== END 2024-12-08 09:30 | disposition home or self-care (01) ==
LOC: HO.HPS 08:54
PROVIDERS: PCP Nurse Practitioner Primary Care; Visit Provider Nurse Practitioner Family
DX: J45.909 Unspecified asthma, uncomplicated (principal); J30.89 Other allergic rhinitis
CPT/HCPCS: 99214

== ENCOUNTER 2025-02-02 08:52 | Outpatient (AMB) | payer OTHER, MEDICAID, SELFPAY ==
--- NOTE | 2025-02-02 09:04 | MHC.OFFVIS ---
Vital Signs 02/02/25 09:05 Height 6 ft Weight 262 lb 5.601 oz BMI 35.6 BP 130/80 Blood Pressure Location Rt brachial Position Sitting Pulse 81 Pulse Source Pulse Oximeter Pulse Oximetry (%) 94 Oxygen Delivery Method Room Air Intake Visit Reasons: Asthma Allergies No Known Allergies Allergy (Verified 02/02/25 09:08) HPI HPI Asthma: Details: Dat is a pleasant 24-year-old male, never smoker, with underlying asthma since childhood and h/o acute respiratory failure 10/2024. At the last visit, he reported suboptimal control of respiratory symptoms with Symbicort, requiring albuterol MDI mulitple times per day. He was switched to Trelegy with notable improvements, now using albuterol MDI infrequently. He continues to report allergic symptoms which have been relatively managed with Zyrtec. At this time he feels respiratory symptoms are controlled. Previously discussed Singulair vs biologic however he would like to hold off at this time. He denies any visits to urgent care or hospitalizations related to respiratory distress since the last visit. 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 Review of Systems Const Denies chills, Denies excessive sweating, Denies fever(s), Denies headache(s) and Denies night sweats Eyes Denies dry eyes, Denies irritation and Denies itchy eyes ENT Reports Normal hearing present, Denies headache(s) and Denies sore throat Card Denies chest pain, Denies chest pain at rest, Denies chest pain with activity, Denies claudication, Denies leg edema, Denies dyspnea, Denies dyspnea on exertion, Denies orthopnea and Denies paroxysmal nocturnal dyspnea Resp Denies chest congestion, Denies cough, Denies excessive phlegm production, Denies pain on inspiration, Denies pain with cough, Denies dyspnea, Denies dyspnea on exertion, Denies stridor and Denies wheezing Musc Denies myalgias Neuro Reports Normal hearing present and Denies headache(s) Endo Denies excessive sweating Mariusz/Lymph Denies lymphadenopathy Aller/Immun Denies itchy eyes, Denies seasonal rhinorrhea and Denies wheezing Physical Exam Vital Signs: Last Vital Signs Pulse 81 02/02/25 09:05 BP 130/80 02/02/25 09:05 Pulse Ox 94 02/02/25 09:05 Oxygen Delivery Method Room Air 02/02/25 09:05 BMI result Body Mass Index 35.6 Const General: cooperative, healthy appearing, comfortable, no acute distress, well developed and alert Nutritional Appearance: obese Orientation/consciousness: patient oriented x3 Limitations: no limitations HEENT Head: Yes normal to inspection, Yes normocephalic and Yes atraumatic Ears: hearing grossly normal bilaterally and external ears normal Eyes General: appearance normal, both eyes and all related structures Eyelids: Yes eyelids normal Sclerae: sclerae normal EOM: EOMs intact bilaterally Neck Neck: Yes normal visual inspection and Yes no lymphadenopathy Lymphatic: no lymphadenopathy noted Chest Chest palpation & inspection: normal inspection of the chest Resp Effort & Inspection: normal respiratory effort, able to speak in complete sentences, no audible wheezes, no cough, no stridor, not tachypneic, no tripod positioning and no use of accessory muscles Auscultation: clear to auscultation bilaterally Cardio Jugular venous distension: no JVD Rate: regular rate Rhythm: regular rhythm Skin Other: warm, dry General skin exam: no rashes or lesions noted Neuro General: patient oriented x3 Cranial nerves: Yes Normal hearing present Cognition (Neuro): normal cognition Gait exam (Neuro): Normal gait present Extrem General: Yes normal to inspection, Yes capillary refill normal, Yes no clubbing, cyanosis or edema and Yes no pedal edema Psych Appearance: grossly normal and well kempt Speech and movement: Normal speech and movement present and Clear speech present Affect: normal affect Attitude: cooperative Thought process: Normal thought process present Thought content: Normal thought content present Insight: Good insight present (Psych) Judgement: Good judgement present (Psych) Assessment & Plan Assessment & Plan (1) Asthma: Code(s): J45.909 - Unspecified asthma, uncomplicated Category: Medical Qualifiers: Asthma complication type: unspecified Asthma persistence: unspecified Asthma severity: unspecified severity Qualified Code(s): J45.909 - Unspecified asthma, uncomplicated (2) Environmental and seasonal allergies: Code(s): J30.89 - Other allergic rhinitis Category: Medical Plan At this time, patient reports good control of respiratory symptoms on current regimen, advised to continue Trelegy, albuterol MDI PRN and daily antihistamine. If symptoms become less controlled will consider Singulair vs biologic in the future. He is aware to call if symptoms worsen. All questions were answered and patient is in agreement of plan. Will follow up in 3 months or sooner if needed. Coding Level of Care Code Est Pt Level 4 (73018) Diagnoses Asthma J45.909 Asthma complication type: unspecified Asthma persistence: unspecified Asthma severity: unspecified severity Environmental and seasonal allergies J30.89
[2025-02-02 09:05] VITALS: BP 130/80; PULSE 81; O2SAT 94; BMI 35.6
--- OUTSIDE RECORDS SUMMARY | 2025-02-02 09:22 | XMS_ITS | Encounter Summary ---
Author Organization [employer] Address [address] [facility] 7t [place] [address] Care Team Providers Care Steam Bone Press Tender Name Role Phone Darya Saunders Primary Care Provider [phone] [place] Unavailable [phone] Reason for Visit * Reason Comments Med Refill Encounter Details Date Type Department Care Team (Late st Contact Info) Description 06/18/2023 Refill [facility] [address] [place] [address] Darya Saunders ANP [address] [place] [address] Mild persistent asthma without complication Social History [...] t he electric, gas, oil or water [employer] threatened to shut off services in your [...] documented as of this encounter Care Teams Steam Bone Press Tender Relationship Specialty Start Date End Date Darya Saunders ANP [address] [place] [address] PCP - General Family Medicine 01/04/22 [place] [address] [place] [address] [address] [place] [address] Pulmonary Disease 12/16/24 documented as of this encounter
--- OUTSIDE RECORDS SUMMARY | 2025-02-02 09:22 | XMS_ITS | Clinical Summary ---
Author Organization [employer] Address [address] [facility] 7t [place] [address] Care Team Providers Care Amusement Park Ride Mechanic Name Role Phone Darya Saunders Primary Care Provider [phone] [place] Unavailable [phone] Allergies No known active allergies Medications albuterol (2.5 MG/3ML) 0.083% nebulizer solutionIndicati ons:Mild persistent asthma without complication Take 3 mL (2.5 mg) by nebulization every 6 (six) hours if needed for wheezing. 75 mL 11 3 Active albuterol 108 (90 Base) MCG/ACT inhalerIndicatio ns:Mild persistent asthma without complication Inhale 2 puffs every 6 (six) hours if needed for wheezing. 18 g 2 5 026 Active Trelegy Ellipta 200-62.5-25 MCG/ACT aerosol powder 5 Active cetirizine (ZyrTEC) 10 MG tabletIndication s:Moderate persistent asthma with acute exacerbation Take 1 tab daily as needed for allergies 90 tablet 3 5 Active Active Problems Problem Noted Date Diagnosed Date Allergic rhinitis 04/16/2023 04/16/2023 Mild persistent asthma without complication 01/06 ALT (SGPT) level raised 06/07/2018 04/16/20 23 Obesity 05/30/2018 Overweight 02/06/2017 04/16/2023 Attention deficit hyperactivity disorder 011 Encounters Date Type Department Care Team Description 12/18/2024 Telephone [facility] [address] [place], [place] [id number] Margy Dickson, RN Status Check: Asthma 12/16/2024 9:30 AM EDT Office Visit [address] [address] Darya Saunders ANP Moderate persistent asthma with acute exacerbation (Primary Dx); Witnessed apneic spells; Non-seasonal allergic rhinitis, unspecified trigger 12/16/2024 Travel 12/15/[address] [address] Darya Saunders ANP CHART PREP 12/05/2024 Patient Outreach [address] [address] Darya Saunders ANP Pre-visit Planning (SDOH screening completed on 05/27/2024) from Last 3 Months Immunizations Immunization Administration Dates Next Due DTaP 12/22/2002, 1,08/18/1999,04/18,02/17/1999 HPV, Quadrivalent 11/06/2013,10/07/2012,07/31/19 12 Hep A, ped/adol, 2 dose 11/06/2013,07/06/2010 Hep B, Adolescent or Pediatric 05/17/2000,1999,08/18/1999 Hib (HbOC) 05/17/2000, 0,04/18/1999,02/17 IPV 12/22/2002, 1,04/18/1999,02/17 Influenza injectable quadriv alent IIV4 with preservative 02/03/2015 Influenza injectable quadriv alent preservative free 01/26/2023,02/06/2017,04/08/2014 Influenza, IIV3, injectable 02/01/2007,0 05/10/2006,03/08/2005,02/24,02/05/2003 Influenza, Split (incl. elida fied surface antigen) 04/22/2013,04/16/2012 Influenza, Unspecified 04/08/2003 Influenza, live, intranasal 04/08/2003 MMR 12/22/2002,02/02/2000 Meningococcal MCV4P ACYW-135 02/03/2015,07/07/19 11 Pneumococcal Conjugate PCV 20 04/16/2023 Pneumococcal Conjugate PCV 7 05/17/2000,09/28/20 00 TD (adult), 2 Lf tetanus tox [...] Date Recorded Patient Health Questionnaire-9 Score 0 12/16/2024 Patient Health Questionnaire-9 Score 0 12/16/2024 Last PHQ-9: Questionnaire Data Not on file 0 12/16/2024 Housing Stability Answer Date Recorded What is [...] Date Recorded Patient Health Questionnaire-2 Score 0 12/16/2024 Internet Access Answer Date Recorded Internet Access [...] Sign Reading Time Taken Comments Blood Pressure 124/84 12/16/2024 9:30 AM EDT Pulse 99 12/16/2024 9:30 AM EDT Temperature 36.7 C (98 F) 06/10/2024 10:22 AM EST Respiratory Rate 20 12/16/2024 9:30 AM EDT Oxygen Saturation 96% 12/16/2024 9:30 AM EDT Inhaled Oxygen Concentration - - Weight 119 kg (263 lb) 12/16/2024 9:30 AM EDT Height 182.9 cm (6') 12/16/2024 9:30 AM EDT Body Mass Index 35.67 12/16/2024 9:30 AM EDT Plan of Treatment Health Maintenance Due Date Last Done Comments Family Planning (PISQ) 2013 COVID-19 Vaccine ( season) 2025 Influenza Vaccine (#1) 2025 , 02/06/2017, 02/03/2015, Additional history exists SDOH Screening 05/27/2025 05/27/2024 Alcohol/Substance Use Screening 12/16/2025 12/16/2024 Depression Screening 12/16/2025 12/16/2024, 12/17/19 25 Disability Screening 12/16/2025 12/16/2024 Tobacco Screening 12/16/2025 12/16/2024 Lipid Panel 08/05/2028 08/06/2023 DTaP/Tdap/Td Vaccines (8 [...] Additional history exists HPV Vaccines Completed 11/06/2013, 0607/2012, 07/31/2011 Hepatitis A Vaccines Completed 11/06/2013, 07/07/19 11 Meningococcal Vaccine Completed 02/03/2015, 011 Pneumococcal Vaccine: Pediatrics (0 to 5 Years) and At-Risk Patients (6 to 49) Years Completed 04/16/2023, 05/17/2000, 02/02/2000 HIV Screening Completed 08/06/2023 Hepatitis C Screening Completed 08/06/2023 Meningococcal B Vaccine Aged Out No l onger eligible based on patient's age to complete this topic RSV under 20 months Aged Out No [...] AM EDT) Hepatitis C Antibody Nonreactive Nonreactive [facility] Comment:Antibodies to HCV no t detected; does not exclude early acuteHCV infection. Blood Venous blood specimen / Unknown 08/06/2023 10:44 AM EDT 08/06/2023 11:09 AM EDT [facility] BLOOD ORDERABLES Final Resul t [facility] [address] [place] [address] [phone] * HIV-1/2 Antigen and Antibodies, Fourth Generation, with Reflexes (08/06/2023 10:44 AM EDT) HIV AB/AG Nonreactive Nonreactive [facility] Comment:HIV-1 p24 Ag and/or HIV-1/HIV-2 Ab not detected.A test result that is nonreactive does not exclude thepossibility of exposure to or infection with HIV-1 and/orHIV-2. Nonreactive results in this assay for individualswith prior exposure to HIV-1 and/or HIV-2 may be due toantigen and antibody levels that are below the limit ofdetection of this assay.The [employer] HIV Ag/Ab Combo assay result andsupplemental assay results should be interpreted inconjunction with the patient's clinical presentation,history and other laboratory results. If the results areinconsistent with clinical evidence, additional testing issuggested to confirm the result. Blood Venous blood specimen / Unknown 08/06/2023 10:44 AM EDT 08/06/2023 11:09 AM EDT [facility] BLOOD ORDERABLES Final Resul t [facility] [address] [place] [address] [phone] * (ABNORMAL) Lipid Panel, Standard (08/06/2023 10:44 AM EDT) Triglycerides 71 <150 mg/dL [facility] Comment:Desirable Triglyceri de: less than 150 mg/dLBorderline High Triglyceride 150-199 mg/dLHigh Triglyceride: 200-499 mg/dLVery High Triglyceride: greater than or equal to 5OO mg/dL Cholesterol 182 <200 mg/dL [facility] Comment:Desirable Cholestero l: less than 200 mg/dLBorderline High Cholesterol: 200-239 mg/dLHigh Cholesterol: greater than 239 mg/dL LDL Cholesterol Calculated 136(H) <100 mg/dL [facility] Comment:Desirable LDL: less than 100 mg/dLNear Optimal/Above Optimal LDL: 110- 129 mg/dLBorderline High LDL: 130-159 mg/dLHigh LDL: 160-189 mg/dLVery High LDL: greater than or equal to 190 mg/dL HDL Cholesterol 32(L) >40 mg/dL [facility] Comment:Desirable HDL: great er than 40 mg/dL Note: This HDL assay may give artificially low results in patients with liver disease. Blood Venous blood specimen / Unknown 08/06/2023 10:44 AM EDT 08/06/2023 11:09 AM EDT Darya [facility] LAB BLOOD ORDERABLES Final Resul t [facility] [address] [place] [address] [phone] from Last 3 Months or Most Recently Relevant to Health Maintenance Insurance [employer] PPO Care Teams Amusement Park Ride Mechanic Relationship Specialty Start Date End Date Darya Saunders ANP [address] [place] [address] PCP - General Family Medicine 01/04/[address] [place] [address] [place] [address] [address] [place] [address] Pulmonary Disease 12/16/24
--- OUTSIDE RECORDS SUMMARY | 2025-02-02 09:22 | XMS_ITS | Encounter Summary ---
Author Organization [employer] Address [address] [facility] 7t [place] [address] Care Team Providers Care Ocularist Name Role Phone Darya Saunders Primary Care Provider [phone] [place] Unavailable Reason for Visit * Reason Comments Med Refill Encounter Details Date Type Department Care Team (Late st Contact Info) Description 06/14/2023 Refill [facility] [address] [place] [address] Darya Saunders ANP [address] [place] [address] Mild persistent asthma without complication Social History [...] t he electric, gas, oil or water [employer] threatened to shut off services in your [...] documented as of this encounter Care Teams Ocularist Relationship Specialty Start Date End Date Darya Saunders ANP [address] [place] [address] PCP - General Family Medicine 01/04/22 [place] [address] [place] [address] [address] [place] [address] Pulmonary Disease 12/16/24 documented as of this encounter
--- OUTSIDE RECORDS SUMMARY | 2025-02-02 09:22 | XMS_ITS | Encounter Summary ---
Author Organization [employer] Address [address] [facility] 7t [place] [address] Care Team Providers Care Camp Maintenance Supervisor Name Role Phone Darya Saunders Primary Care Provider [phone] [place] Unavailable [phone] Reason for Visit * Reason Onset Date Comments Medication Question 12/19/2022 Encounter Details Date Type Department Care Team (Late st Contact Info) Description 12/19/2022 Telephone [facility] [address] [place] [address] Darya Saunders ANP [address] [place] [address] Medication Question Social History Tobacco Use Types [...] requesting med refill for nebulizer solution . Pca did not see medication on med list. Please call pt to clarify . documented in this encounter Plan of Treatment Not on file documented as of this encounter Visit Diagnoses Not on filedocumented in this encounter Care Teams Camp Maintenance Supervisor Relationship Specialty Start Date End Date Darya Saunders ANP [address] [place] [address] PCP - General Family Medicine 01/04/[address] [place] [address] [place] [address] [address] [place] [address] Pulmonary Disease 12/16/24 documented as of this encounter
== END 2025-02-02 09:34 | disposition home or self-care (01) ==
LOC: HO.HPS 08:52
PROVIDERS: PCP Nurse Practitioner Primary Care; Visit Provider Nurse Practitioner Family
DX: J45.909 Unspecified asthma, uncomplicated (principal); J30.89 Other allergic rhinitis
CPT/HCPCS: 99214

== ENCOUNTER → 2025-02-23 09:46 | Outpatient (REF) | payer OTHER, MEDICAID, SELFPAY ==
--- OUTSIDE RECORDS SUMMARY | 2025-02-23 10:56 | XMS_ITS | Encounter Summary ---
Author Organization [employer] Address [address] [facility] 7t [place] [address] Care Team Providers Care Construction Superintendent Name Role Phone Darya Saunders Primary Care Provider [phone] [place] Unavailable [phone] Reason for Visit * Reason Comments Med Refill Encounter Details Date Type Department Care Team (Late st Contact Info) Description 06/14/2023 Refill [facility] [address] [place] [address] Darya Saunders ANP [address] [place] [address] Mild persistent asthma without complication Social History [...] t he electric, gas, oil or water [employer] threatened to shut off services in your [...] documented as of this encounter Care Teams Construction Superintendent Relationship Specialty Start Date End Date Darya Saunders ANP [address] [place] [address] PCP - General Family Medicine 01/04/[address] [place] [address] [place] [address] [address] [place] [address] Pulmonary Disease 12/16/24 documented as of this encounter
--- OUTSIDE RECORDS SUMMARY | 2025-02-23 10:56 | XMS_ITS | Encounter Summary ---
Author Organization [employer] Address [address] [facility] 7t [place] [address] Care Team Providers Care Hot End Operator Name Role Phone Darya Saunders Primary Care Provider [phone] [place] Unavailable [phone] Reason for Visit * Reason Comments Med Refill Encounter Details Date Type Department Care Team (Late st Contact Info) Description 06/18/2023 Refill [facility] [address] [place] [address] Darya Saunders ANP [address] [place] [address] Mild persistent asthma without complication Social History [...] t he electric, gas, oil or water [employer] threatened to shut off services in your [...] documented as of this encounter Care Teams Hot End Operator Relationship Specialty Start Date End Date Darya Saunders ANP [address] [place] [address] PCP - General Family Medicine 01/04/[address] [place] [address] [place] [address] [address] [place] [address] Pulmonary Disease 12/16/24 documented as of this encounter
--- OUTSIDE RECORDS SUMMARY | 2025-02-23 10:56 | XMS_ITS | Clinical Summary ---
Author Organization [employer] Address [address] [facility] 7t [place] [address] Care Team Providers Care Hotel Maintenance Engineer Name Role Phone Darya Saunders AARON Primary Care Provider [phone] [place] Unavailable [phone] Allergies No known active allergies Medications albuterol (2.5 MG/3ML) 0.083% nebulizer solutionIndicat ions:Mild persistent asthma without complication Take 3 mL (2.5 mg) by nebulization every 6 (six) hours if needed for wheezing. 75 mL 11 01/27/20 23 Active Trelegy Ellipta 200-62.5-25 MCG/ACT aerosol powder 12/09/19 25 Active cetirizine (ZyrTEC) 10 MG tabletIndicatio ns:Moderate persistent asthma with acute exacerbation Take 1 tab daily as needed for allergies 90 tablet 3 12/17/19 25 Active albuterol 108 (90 Base) MCG/ACT inhalerIndicati ons:Mild persistent asthma without complication INHALE 2 PUFFS BY MOUTH EVERY 6 HOURS NEEDED FOR WHEEZING OR SHORTNESS OF BREATH 8.5 g 2 02/18/20 25 Active albuterol 108 (90 Base) MCG/ACT inhalerIndicati ons:Mild persistent asthma without complication Inhale 2 puffs every 6 (six) hours if needed for wheezing. 18 g 2 08/27/19 25 2024 Discontinued Active Problems Problem Noted Date Diagnosed Date Allergic rhinitis 04/16/2023 04/16/2023 Mild persistent asthma without complication 01/06 ALT (SGPT) level raised 06/07/2018 04/16/20 Obesity 05/30/2018 Overweight 02/06/2017 04/16/2023 Attention deficit hyperactivity disorder 011 Encounters Date Type Department Care Team Description 02/17/2025 Refill [facility] CHC MED & PEDS [address] [place] [address] Darya Saunders ANP Mild persistent asthma without complication 12/18/2024 Telephone [facility] MEDICINE [address] [place] [address] [phone] Margy Dickson RN Status Check: Asthma 12/16/2024 9:30 AM EDT Office Visit [address] [phone] Darya Saunders ANP Moderate persistent asthma with acute exacerbation (Primary Dx); Witnessed apneic spells; Non-seasonal allergic rhinitis, unspecified trigger 12/16/2024 Travel 12/15/[address] [phone] Darya Saunders ANP CHART PREP 12/05/2024 Patient Outreach [address] [phone] Darya Saunders ANP Pre-visit Planning ([facility] screening completed on 05/27/2024) from Last 3 Months Immunizations Immunization Administration Dates Next Due DTaP 12/22/2002, 1,08/18/1999,04/18,02/17/1999 HPV, Quadrivalent 11/06/2013,10/07/2012,07/31/19 12 Hep A, ped/adol, 2 dose 11/06/2013,07/06/2010 Hep B, Adolescent or Pediatric 05/17/2000,1999,08/18/1999 Hib ([facility]) 05/17/2000, 0,04/18/1999,02/17 IPV 12/22/2002, 1,04/18/1999,02/17 Influenza injectable [...] 12/16/2025 12/16/2024 Depression Screening 12/16/2025 12/16/2024, 12/17/19 Disability Screening 12/16/2025 12/16/2024 Tobacco Screening 12/16/2025 [...] AM EDT) Hepatitis C Antibody Nonreactive Nonreactive [facility] Comment:Antibodies to HCV no t detected; does not exclude early acuteHCV infection. Blood Venous blood specimen / Unknown 08/06/2023 10:44 AM EDT 08/06/2023 11:09 AM EDT [facility] LAB BLOOD ORDERABLES Final Resul t Performing Organization Address City/[facility]/ZIP Co de Phone Number [facility] [address] [place] [address] [phone] * HIV-1/2 Antigen and Antibodies, Fourth Generation, with Reflexes (08/06/2023 10:44 AM EDT) HIV AB/AG Nonreactive Nonreactive [facility] Comment:HIV-1 p24 Ag and/or HIV-1/HIV-2 Ab not detected.A test result that is nonreactive does not exclude thepossibility of exposure to or infection with HIV-1 and/orHIV-2. Nonreactive results in this assay for individualswith prior exposure to HIV-1 and/or HIV-2 may be due toantigen and antibody levels that are below the limit ofdetection of this assay.The [employer] HIV Ag/Ab Combo assay result andsupplemental assay results should be interpreted inconjunction with the patient's clinical presentation,history and other laboratory results. If the results areinconsistent with clinical evidence, additional testing issuggested to confirm the result. Blood Venous blood specimen / Unknown 08/06/2023 10:44 AM EDT 08/06/2023 11:09 AM EDT Darya [facility] LAB BLOOD ORDERABLES Final Resul t Performing Organization Address [facility] Co de Phone Number [facility] [address] [place] [address] [phone] * (ABNORMAL) Lipid Panel, Standard (08/06/2023 10:44 AM EDT) Triglycerides 71 <150 mg/dL [facility] Comment:Desirable Triglyceri de: less than 150 mg/dLBorderline High Triglyceride 150-199 mg/dLHigh Triglyceride: 200-499 mg/dLVery High Triglyceride: greater than or equal to 5OO mg/dL Cholesterol 182 <200 mg/dL [facility] Comment:Desirable Cholestero l: less than 200 mg/dLBorderline High Cholesterol: 200-239 mg/dLHigh Cholesterol: greater than 239 mg/dL LDL Cholesterol Calculated 136(H) <100 mg/dL [facility] Comment:Desirable LDL: less than 100 mg/dLNear Optimal/Above Optimal LDL: 110- 129 mg/dLBorderline High LDL: 130-159 mg/dLHigh LDL: 160-189 mg/dLVery High LDL: greater than or equal to 190 mg/dL HDL Cholesterol 32(L) >40 mg/dL [facility] Comment:Desirable HDL: great er than 40 mg/dL Note: This HDL assay may give artificially low results in patients with liver disease. Blood Venous blood specimen / Unknown 08/06/2023 10:44 AM EDT 08/06/2023 11:09 AM EDT Darya Saunders [facility] LAB BLOOD ORDERABLES Final Resul t [facility] [address] [place] [address] [phone] from Last 3 Months or Most Recently Relevant to Health Maintenance Insurance [employer] PPO Care Teams Hotel Maintenance Engineer Relationship Specialty Start Date End Date Darya Saunders ANP [address] [place] [address] PCP - General Family Medicine 01/04/22 [place] [address] [place] [address] Dr [address] [place] [address] Pulmonary Disease 12/16/24
--- OUTSIDE RECORDS SUMMARY | 2025-02-23 10:56 | XMS_ITS | Encounter Summary ---
Author Organization [employer] Address [address] [facility] 7t [place] [address] Care Team Providers Care Drafter Assistant Name Role Phone Darya Saunders Primary Care Provider [phone] [place] Unavailable [phone] Reason for Visit * Reason Onset Date Comments Medication Question 12/19/2022 Encounter Details Date Type Department Care Team (Late st Contact Info) Description 12/19/2022 Telephone [facility] MEDICINE [address] [place] [address] Darya Saunders ANP [address] [place] [address] Medication Question Social History Tobacco Use Types [...] requesting med refill for nebulizer solution . 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 Please call pt to clarify . documented in this encounter Plan of Treatment Not on file documented as of this encounter Visit Diagnoses Not on filedocumented in this encounter Care Teams Drafter Assistant Relationship Specialty Start Date End Date Darya Saunders ANP [address] [place] [phone] PCP - General Family Medicine 01/04/22 [place] [address] [place] [address] [address] [place] [address] Pulmonary Disease 12/16/24 documented as of this encounter
== END ==
LOC: HO.SL 09:46
PROVIDERS: PCP Nurse Practitioner Primary Care; Visit Provider Nurse Practitioner Primary Care
DX: R06.83 Snoring (principal); R40.0 Somnolence; G47.33 Obstructive sleep apnea (adult) (pediatric)
CPT/HCPCS: 95806

== ENCOUNTER → 2025-02-23 10:00 | Outpatient (BNV) | payer OTHER, MEDICAID, SELFPAY | PROVIDERS: PCP Nurse Practitioner Primary Care; Visit Provider Psychiatry & Neurology Neurology | DX: G47.33 Obstructive sleep apnea (adult) (pediatric) (principal) | CPT/HCPCS: 95806 ==

== ENCOUNTER 2025-05-04 09:09 | Outpatient (AMB) | payer OTHER, MEDICAID, SELFPAY ==
--- NOTE | 2025-05-04 09:14 | MHC.OFFVIS ---
Vital Signs 05/04/25 09:15 Height 6 ft Weight 262 lb 5.601 oz BMI 35.6 BP 124/80 Blood Pressure Location Lt brachial Position Sitting Pulse 74 Pulse Source Pulse Oximeter Pulse Oximetry (%) 95 Oxygen Delivery Method Room Air Intake Visit Reasons: Asthma Hot Cell Technician Required: No Tractor Driver Teamster: Tractor Driver Teamster offered & declined Allergies No Known Allergies Allergy (Verified 05/04/25 09:17) HPI HPI Asthma: Details: Dat is a pleasant 24-year-old male, never smoker, with underlying asthma since childhood and h/o acute respiratory failure 10/2024. He reports moderate control with the use of Trelegy and Zyrtec, using Albuterol MDI 2x per week. He continues to report intermittent wheezing, occasional dry cough and allergic symptoms, primarily triggered by the cold weather. Denies dyspnea or chest tightness. Previously discussed Singulair vs biologic however he would like to hold off at this time. He denies any visits to urgent care or hospitalizations related to respiratory distress since the last visit. Today he presents to review HST results. 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 Review of Systems Const Denies chills, Denies excessive sweating, Denies fever(s), Denies headache(s) and Denies night sweats Eyes Denies dry eyes, Denies irritation and Denies itchy eyes ENT Reports Normal hearing present, Denies headache(s), Reports nasal congestion and Denies sore throat Card Denies chest pain, Denies chest pain at rest, Denies chest pain with activity, Denies claudication, Denies leg edema, Denies dyspnea, Denies dyspnea on exertion, Denies orthopnea and Denies paroxysmal nocturnal dyspnea Resp Denies chest congestion, Denies excessive phlegm production, Denies pain on inspiration, Denies pain with cough, Denies dyspnea, Denies dyspnea on exertion and Denies stridor Musc Denies myalgias Neuro Reports Normal hearing present and Denies headache(s) Endo Denies excessive sweating Mariusz/Lymph Denies lymphadenopathy Aller/Immun Denies itchy eyes and Denies seasonal rhinorrhea Physical Exam Vital Signs: Last Vital Signs Pulse 74 05/04/25 09:15 BP 124/80 05/04/25 09:15 Pulse Ox 95 05/04/25 09:15 Oxygen Delivery Method Room Air 05/04/25 09:15 BMI result Body Mass Index 35.6 Const General: cooperative, healthy appearing, comfortable, no acute distress, well developed and alert Nutritional Appearance: obese Orientation/consciousness: patient oriented x3 Limitations: no limitations HEENT Head: Yes normal to inspection, Yes normocephalic and Yes atraumatic Ears: hearing grossly normal bilaterally and external ears normal Eyes General: appearance normal, both eyes and all related structures Eyelids: Yes eyelids normal Sclerae: sclerae normal EOM: EOMs intact bilaterally Neck Neck: Yes normal visual inspection and Yes no lymphadenopathy Lymphatic: no lymphadenopathy noted Chest Chest palpation & inspection: normal inspection of the chest Resp Effort & Inspection: normal respiratory effort, able to speak in complete sentences, no audible wheezes, no cough, no stridor, not tachypneic, no tripod positioning and no use of accessory muscles Auscultation: wheezes expiratory wheezes and throughout Cardio Jugular venous distension: no JVD Rate: regular rate Rhythm: regular rhythm Skin Other: warm, dry General skin exam: no rashes or lesions noted Neuro General: patient oriented x3 Cranial nerves: Yes Normal hearing present Cognition (Neuro): normal cognition Gait exam (Neuro): Normal gait present Extrem General: Yes normal to inspection, Yes capillary refill normal, Yes no clubbing, cyanosis or edema and Yes no pedal edema Psych Appearance: grossly normal and well kempt Speech and movement: Normal speech and movement present and Clear speech present Affect: normal affect Attitude: cooperative Thought process: Normal thought process present Thought content: Normal thought content present Insight: Good insight present (Psych) Judgement: Good judgement present (Psych) Assessment & Plan Assessment & Plan (1) Asthma: Code(s): J45.909 - Unspecified asthma, uncomplicated Category: Medical Qualifiers: Asthma complication type: unspecified Asthma persistence: unspecified Asthma severity: severe Qualified Code(s): J45.909 - Unspecified asthma, uncomplicated (2) Nocturnal hypoxemia: Code(s): G47.34 - Idiopathic sleep related nonobstructive alveolar hypoventilation Category: Medical (3) Obstructive sleep apnea: Code(s): G47.33 - Obstructive sleep apnea (adult) (pediatric) Category: Medical (4) Environmental and seasonal allergies: Code(s): J30.89 - Other allergic rhinitis Category: Medical Plan Will treat current exacerbation with prednisone. Side effects reviewed. Again discussed biologic therapy given severity of asthma and suboptimal control with Trelegy however patient continues to defer. May consider in the future. Agreeable to Singulair, side effects reviewed. Advised to continue Trelegy and Albuterol MDI PRN. He is aware to call if symptoms do not improve. Reviewed HST which demonstrated borderline KENIA, AHI 5.9 with mild nocturnal hypoxemia, <88% for 9.4 minutes. Given persistent reports of apneas, combined with nocturnal hypoxemia, will send for in lab sleep study. All questions were answered and patient is in agreement of plan. Will follow up in 3 months or sooner if needed. Orders: Orders RT PSG in-lab sleep study Today G47.34 - Idiopathic sleep related nonobstructive alveolar hypoventilation, R06.81 - Apnea, not elsewhere classified Medications: New montelukast (Singulair) 10 mg PO BEDTIME 30 tabs 3RF prednisone 40 mg (2 x 20 mg) PO DAILY 10 tabs 0RF Refilled hxqygnlsuga-udcgxqjgh-bopnhvhu 200-62.5-25 mcg (Trelegy Ellipta) 1 inh inhalation DAILY 60 ea 3RF albuterol sulfate 90 mcg/actuation 1 inh inhalation QID PRN 6.7 grams 0RF shortness of breath or wheezing Coding Level of Care Code Est Pt Level 4 (84695) Diagnoses Severe asthma, unspecified whether complicated, unspecified whether persistent J45.909 Asthma complication type: unspecified Asthma persistence: unspecified Asthma severity: severe Nocturnal hypoxemia G47.34 Obstructive sleep apnea G47.33 Environmental and seasonal allergies J30.89
[2025-05-04 09:15] VITALS: BP 124/80; PULSE 74; O2SAT 95; BMI 35.6
--- OUTSIDE RECORDS SUMMARY | 2025-05-04 09:25 | XMS_ITS | Encounter Summary ---
Author Organization [employer] Address [address] [facility] [address] [place] [address] Care Team Providers Care Anesthesiology Medical Doctor Name Role Phone Darya Saunders Primary Care Provider [phone] [place] Unavailable Reason for Visit * Reason Comments Med Refill Encounter Details Date Type Department Care Team (Late st Contact Info) Description 06/18/2023 Refill [facility] MEDICINE [address] [place] [address] Darya Saunders ANP [address] [place] [address] Mild persistent asthma without complication Social History [...] t he electric, gas, oil or water [employer] threatened to shut off services in your [...] documented as of this encounter Care Teams Anesthesiology Medical Doctor Relationship Specialty Start Date End Date Darya Saunders ANP [address] [place] [address] PCP - General Family Medicine 01/04/22 [place] [address] [place] [address] [address] [place] [address] Pulmonary Disease 12/16/24 documented as of this encounter
--- OUTSIDE RECORDS SUMMARY | 2025-05-04 09:25 | XMS_ITS | Clinical Summary ---
Author Organization [employer] Address [address] [facility] 7t [place] [address] Care Team Providers Care Grinder Watch Parts Name Role Phone Darya Saunders Primary Care Provider [phone] [place] Unavailable [phone] Allergies No known active allergies Medications Indira Rolle 200-62.5-25 MCG/ACT aerosol powder 5 Active cetirizine (ZyrTEC) 10 MG tabletIndications :Moderate persistent asthma with acute exacerbation Take 1 tab daily as needed for allergies 90 tablet 3 5 Active albuterol 108 (90 Base) MCG/ACT inhalerIndication s:Mild persistent asthma without complication INHALE 2 PUFFS BY MOUTH EVERY 6 HOURS NEEDED FOR WHEEZING OR SHORTNESS OF BREATH 8.5 g 2 03/24/2025 3:08 PM EST 5 Active albuterol (2.5 MG/3ML) 0.083% nebulizer solutionIndicatio ns:Mild persistent asthma without complication INHALE 1 AMPULE USING A NEBULIZER EVERY 6 HOURS NEEDED FOR WHEEZING 90 mL 11 03/27/2025 11:24 AM EST 5 Active Active Problems Problem Noted Date Diagnosed Date Allergic rhinitis 04/16/2023 04/16/2023 Mild persistent asthma without complication 01/06 ALT (SGPT) level raised 06/07/2018 04/16/20 23 Obesity 05/30/2018 Overweight 02/06/2017 04/16/2023 Attention deficit hyperactivity disorder 011 Encounters Date Type Department Care Team Description 04/10/2025 Results Follow-Up [facility] MEDICINE [address] [place] [address] Darya Saunders ANP Polysomnography 03/24/2025 Refill [facility] MEDICINE [address] [place] [address] Darya Saunders ANP Mild persistent asthma without complication 02/17/2025 Refill [facility] CHC MED & PEDS [address] [place] [address] Darya Saunders ANP Mild persistent asthma without complication from Last 3 Months Immunizations Immunization Administration Dates Next Due DTaP 12/22/2002, 1,08/18/1999,04/18,02/17/1999 HPV, Quadrivalent 11/06/2013,10/07/2012,07/31/19 12 Hep A, ped/adol, 2 dose 11/06/2013,07/06/2010 Hep B, Adolescent or Pediatric 05/17/2000,1999,08/18/1999 Hib ([facility]) 05/17/2000, 0,04/18/1999,02/17 IPV 12/22/2002, 1,04/18/1999,02/17 Influenza [...] Procedure Name Priority Date/Time Associated Diagnosis Comments POLYSOMNOGRAM Routine 02/23/2025 Witnessed apneic spells HEPATITIS C AB W/REFL TO HCV RNA, [...] Recently Relevant to Health Maintenance Results * Polysomnography (02/23/2025) us Darya Saunders [facility] ORDERABLES Final Re sult * Hepatitis C Antibody with Reflex to HCV, RNA, Quantitative, Real-Time PCR (08/06/2023 10:44 AM EDT) Hepatitis C Antibody Nonreactive Nonreactive [facility] Comment:Antibodies to HCV no t detected; does not exclude early acuteHCV infection. Blood Venous blood specimen / Unknown 08/06/2023 10:44 AM EDT 08/06/2023 11:09 AM EDT us Darya Saunders [facility] BLOOD ORDERABLES Final Resul t [facility] [address] [place] [phone] * HIV-1/2 Antigen and Antibodies, Fourth Generation, with Reflexes (08/06/2023 10:44 AM EDT) HIV AB/AG Nonreactive Nonreactive [facility] Comment:HIV-1 p24 Ag and/or HIV-1/HIV-2 Ab not detected.A test result that is nonreactive does not exclude thepossibility of exposure to or infection with HIV-1 and/orHIV-2. Nonreactive results in this assay for individualswith prior exposure to HIV-1 and/or HIV-2 may be due toantigen and antibody levels that are below the limit ofdetection of this assay.The enrich-inn[employer]MED HIV Ag/Ab Combo assay result andsupplemental assay results should be interpreted inconjunction with the patient's clinical presentation,history and other laboratory results. If the results areinconsistent with clinical evidence, additional testing issuggested to confirm the result. Blood Venous blood specimen / Unknown 08/06/2023 10:44 AM EDT 08/06/2023 11:09 AM EDT Darya [facility] LAB BLOOD ORDERABLES Final Resul t [facility] [address] [place] [phone] [phone] * (ABNORMAL) Lipid Panel, Standard (08/06/2023 10:44 AM EDT) Triglycerides 71 <150 mg/dL [facility] Comment:Desirable Triglyceri de: less than 150 mg/dLBorderline High Triglyceride 150-199 mg/dLHigh Triglyceride: 200-499 mg/dLVery High Triglyceride: greater than or equal to 5OO mg/dL Cholesterol 182 <200 mg/dL [facility] Comment:Desirable Cholestero l: less than 200 mg/dLBorderline High Cholesterol: 200-239 mg/dLHigh Cholesterol: greater than 239 mg/dL LDL Cholesterol Calculated 136(H) <100 mg/dL [facility] Comment:Desirable LDL: less than 100 mg/dLNear Optimal/Above Optimal LDL: 110- 129 mg/dLBorderline High LDL: 130-159 mg/dLHigh LDL: 160-189 mg/dLVery High LDL: greater than or equal to 190 mg/dL HDL Cholesterol 32(L) >40 mg/dL [facility] Comment:Desirable HDL: great er than 40 mg/dL Note: This HDL assay may give artificially low results in patients with liver disease. Blood Venous blood specimen / Unknown 08/06/2023 10:44 AM EDT 08/06/2023 11:09 AM EDT Darya [facility] BLOOD ORDERABLES Final Resul t [facility] [address] [place] [address] [phone] from Last 3 Months or Most Recently Relevant to Health Maintenance Insurance [employer] PPO Care Teams Grinder Watch Parts Relationship Specialty Start Date End Date Darya Saunders ANP [address] [place] [address] PCP - General Family Medicine 01/04/22 [place] [address] [place] [address] Dr [address] [place] [address] Pulmonary Disease 12/16/24
--- OUTSIDE RECORDS SUMMARY | 2025-05-04 09:25 | XMS_ITS | Encounter Summary ---
Author Organization [employer] Address [address] [facility] [address]t [place] [address] Care Team Providers Care Mission Planner Name Role Phone Darya Saunders Primary Care Provider [phone] [place] Unavailable [phone] Reason for Visit * Reason Onset Date Comments Medication Question 12/19/2022 Encounter Details Date Type Department Care Team (Late st Contact Info) Description 12/19/2022 Telephone [facility] MEDICINE [address] [place] [address] Darya Saunders ANP [address] [place] [address] Medication Question Social History Tobacco Use Types [...] requesting med refill for nebulizer solution . 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 Please call pt to clarify . documented in this encounter Plan of Treatment Not on file documented as of this encounter Visit Diagnoses Not on filedocumented in this encounter Care Teams Mission Planner Relationship Specialty Start Date End Date Darya Saunders ANP [address] [place] [address] PCP - General Family Medicine 01/04/22 [place] [address] [place] [address] [address] [place] [address] Pulmonary Disease 12/16/24 documented as of this encounter
--- OUTSIDE RECORDS SUMMARY | 2025-05-04 09:25 | XMS_ITS | Encounter Summary ---
Author Organization [employer] Address [address] [facility] [address]t [place] [address] Care Team Providers Care Hydroelectric Production Technician Name Role Phone Darya Saunders Primary Care Provider [phone] [place] Unavailable [phone] Reason for Visit * Reason Comments Med Refill Encounter Details Date Type Department Care Team (Late st Contact Info) Description 06/14/2023 Refill [facility] MEDICINE [address] [place] [address] Darya Saunders ANP [address] [place] [address] Mild persistent asthma without complication Social History [...] t he electric, gas, oil or water [employer] threatened to shut off services in your [...] documented as of this encounter Care Teams Hydroelectric Production Technician Relationship Specialty Start Date End Date Darya Saunders ANP [address] [place] [address] PCP - General Family Medicine 01/04/22 [place] [address] [place] [address] [address] [place] [address] Pulmonary Disease 12/16/24 documented as of this encounter
== END 2025-05-04 09:37 | disposition home or self-care (01) ==
LOC: HO.HPS 09:10
PROVIDERS: PCP Nurse Practitioner Primary Care; Visit Provider Nurse Practitioner Family
DX: J45.909 Unspecified asthma, uncomplicated (principal); G47.34 Idiopathic sleep related nonobstructive alveolar hypoventilation; G47.33 Obstructive sleep apnea (adult) (pediatric); J30.89 Other allergic rhinitis
CPT/HCPCS: 99214